=== PATIENT | female | born 1940 | race Caucasian/White ===

== ENCOUNTER 2016-11-17 09:02 | Outpatient (CLI) | payer MEDICARE, OTHER ==
--- NOTE | 2016-11-18 13:08 | Mammography Report ---
DIGITAL SCREENING MAMMOGRAM: 11/17/2016 CLINICAL INDICATION: A 76-year-old with family history of breast cancer for screening. COMPARISON: 03/2015, 07/2013, 07/2011, 05/2010, 05/2009, 02/2008, 02/2007. TECHNIQUE: Routine CC and MLO projections were obtained of the breasts as well as bilateral laterall y exaggerated craniocaudal views. FINDINGS: Scattered fibroglandular tissue is present within the breasts. There are no dominant deep s, suspicious microcalcifications, or secondary signs of malignancy. In comparison to the previous st udies, there are no significant changes. ASSESSMENT: NO MAMMOGRAPHIC EVIDENCE OF MALIGNANCY. NO SIGNIFICANT INTERVAL CHANGES. RECOMMENDATION: Screening mammography is recommended annually. BIRADS category 1 - negative. STANDARD QUALIFYING STATEMENTS 1. This examination was reviewed with the aid of Computed-Aided Detection (CAD). 2. A negative or benign imaging report should not delay biopsy if clinically suspicious findings are present. Consider surgical consultation if warranted. More than 5% of cancers are not identified by i maging. 3. Dense breasts may obscure an underlying neoplasm. JOB #: [id number] EXT JOB #:[id number]
== END 2016-11-17 09:03 | disposition home or self-care (01) ==
LOC: DI 09:02
PROVIDERS: ATTEND Physician Assistant
DX: Z12.31 Encounter for screening mammogram for malignant neoplasm of breast (principal); Z80.3 Family history of malignant neoplasm of breast
CPT/HCPCS: 77067

== ENCOUNTER 2017-08-26 09:00 | Outpatient (CLI) | payer MEDICARE, OTHER ==
[2017-08-26 10:09] LABS: BASOPHILS # (AUTO) 0.1 10^3/uL (0.0-0.1); BASOPHILS % (AUTO) 0.8 %; EOSINOPHILS # (AUTO) 0.2 10^3/uL (0.0-0.7); EOSINOPHILS % (AUTO) 2.4 %; LYMPHOCYTES # (AUTO) 0.6 10^3/uL (1.5-3.5); LYMPHOCYTES % (AUTO) 8.3 %; MEAN CORPUSCULAR HGB CONC 31.8 g/dL (32.0-36.0); MEAN CORPUSCULAR VOLUME 81.5 fL (81.0-99.0); MEAN PLATELET VOLUME 8.6 fL (7.9-10.8); MONOCYTES % (AUTO) 12.8 %; NEUTROPHILS # (AUTO) 5.7 10^3/uL (1.5-6.6); NEUTROPHILS % (AUTO) 75.7 %; PLT - PLATELET COUNT 228 10^3/uL (130-450); RED BLOOD COUNT 2.03 10^6/uL (4.20-5.40); RED CELL DISTRIBUTION WIDTH 15.7 % (12.0-15.0); WHITE BLOOD COUNT 7.5 x10^3/uL (4.8-10.8)
[2017-08-26 10:16] LABS: HGB - HEMOGLOBIN 5.3 g/dL (12.0-16.0)
[2017-08-26 10:44] LABS: ALBUMIN 3.4 g/dL (3.2-5.5); ALKALINE PHOSPHATASE 111 IU/L (42-121); ALT ALANINE AMINOTRANSFERASE 30 IU/L (10-60); AST ASPARTATE AMINOTRANSFERASE 41 IU/L (10-42); BILIRUBIN,TOTAL 0.4 mg/dL (0.2-1.0); BUN - BLOOD UREA NITROGEN 22 mg/dL (6-20); CALCIUM 8.1 mg/dL (8.5-10.3); CARBON DIOXIDE - CO2 24 mmol/L (21-32); CHLORIDE 93 mmol/L (101-111); CREATININE 0.5 mg/dL (0.4-1.0); GFR - MDRD 120 (>89); GLUCOSE 105 mg/dL (70-100); SODIUM 125 mmol/L (135-145); TOTAL PROTEIN 6.9 g/dL (6.7-8.2)
[2017-08-26 10:53] LABS: CRP - C-REACTIVE PROTEIN < 1.0 mg/dL (0-1.0)
== END 2017-08-26 09:01 | disposition home or self-care (01) ==
LOC: LAB.F 09:00
PROVIDERS: ATTEND Physician Assistant
DX: M62.81 Muscle weakness (generalized) (principal); K74.3 Primary biliary cirrhosis; R74.8 Abnormal levels of other serum enzymes
CPT/HCPCS: 36415; 80053; 82728; 85025; 85651; 86140

== ENCOUNTER 2017-08-26 11:34 | Emergency (ER) | payer MEDICARE, OTHER ==
--- NOTE | 2017-08-26 12:38 | ED Physician Documentation ---
History of Present Illness - Stated complaint Stated Complaint: LAB RESULT - Chief complaint Chief Complaint: Neuro - History obtained from History obtained from: Patient - History of Present Illness Timing: Other (77-year-old woman with diagnosis of primary biliary cirrhosis, crest syndrome. These are conservatively managed by nutrition. Over the last 3 weeks she has had episodes of presyncope and weakness especially in the thighs without complaints of abdominal pain, vomiting, or changes in bowel movements including dark or tarry stools or bloody stools. She was seen by her physician today who did labs and noted a hemoglobin of 5.5 so was referred to the emergency department for further evaluation and treatment. She has no known varices, no known history of ulcers. She is not on any blood thinners except for low-dose aspirin.) Review of Systems Ten Systems: 10 systems reviewed and negative Constitutional: reports: Fatigue. denies: Fever, Chills Cardiac: denies: Chest pain / pressure, Palpitations Respiratory: denies: Dyspnea, Cough GI: denies: Abdominal Pain, Nausea, Vomiting, Bloody / black stool PD PAST MEDICAL HISTORY - Past Medical History Past Medical History: Yes Cardiovascular: Hypertension Neuro: Other Psych: Depression Musculoskeletal: None - Past Surgical History General: Other Ortho: Other - Present Medications Home Medications: Ambulatory Orders Medication Instructions Recorded Confirmed Aspirin 81 mg PO DAILY 08/26/17 Chlorthalidone 25 mg PO DAILY 08/26/17 Enalapril Maleate 10 mg PO DAILY 08/26/17 - Allergies Allergies/Adverse Reactions: Allergies Allergy/AdvReac Type Severity Reaction Status Date / Time erythromycin base Allergy Unknown Verified 08/26/17 11:52 Sulfa (Sulfonamide Allergy Unknown Verified 08/26/17 11:53 Antibiotics) - Social History Does the pt smoke?: No Smoking Status: Never smoker - Family History Family history: reports: Non contributory PD ED PE NORMAL - Vitals Vital signs reviewed: Yes - General General: Alert and oriented X 3, No acute distress - HEENT HEENT: PERRL, EOMI - Neck Neck: Supple, no meningeal sign, No bony TTP - Cardiac Cardiac: RRR, Other (3/ decrescendo systolic mmr, LLSB, old per pt) - Respiratory Respiratory: No respiratory distress, Clear bilaterally - Abdomen Abdomen: Normal bowel sounds, Soft, Non tender - Rectal Rectal: Other (with Sophie Delgadillo, Brown but very guaiac positive stool with quality manager passed.) - Back Back: No CVA TTP, No spinal TTP - Derm Derm: Normal color, Warm and dry - Extremities Extremities: No edema, No calf tenderness / cord - Neuro Neuro: Alert and oriented X 3, Normal speech Results - Vitals Vitals: Vital Signs - 24 hr 08/26/17 08/26/17 11:45 13:09 Temperature 36.1 C L 36.3 C L Heart Rate 90 91 Respiratory 17 16 Rate Blood Pressure 143/68 H O2 Saturation 97 99 Oxygen O2 Source Room air - Labs Labs: Laboratory Tests 08/26/17 08/26/17 08/26/17 12:05 12:05 12:05 WBC 10.5 RBC 2.01 L Hgb 5.3 L* Hct 16.3 L* MCV 81.3 MCH 26.3 L MCHC 32.4 RDW 15.7 H Plt Count 254 MPV 8.8 Neut # 8.2 H Lymph # 0.9 L [place] # 1.2 H Eos # 0.1 Baso # 0.1 Absolute Nucleated RBC 0.01 Nucleated RBC % 0.1 PT INR Sodium 125 L Potassium 4.1 Chloride 92 L Carbon Dioxide 23 Anion Gap 10.0 BUN 21 H Creatinine 0.4 Estimated GFR (MDRD) 156 Glucose 107 H Calcium 8.3 L Total Bilirubin < 0.2 L AST 36 ALT 30 Alkaline Phosphatase 115 Total Protein 6.9 Albumin 3.1 L Globulin 3.8 Albumin/Globulin Ratio 0.8 L Lipase 85 H Blood Type O POSITIVE Blood Type Recheck Antibody Screen NEGATIVE Crossmatch IS Only See Detail 08/26/17 08/26/17 12:05 12:59 WBC RBC Hgb Hct MCV MCH MCHC RDW Plt Count MPV Neut # Lymph # [place] # Eos # Baso # Absolute Nucleated RBC Nucleated RBC % PT 11.9 INR 1.1 Sodium Potassium Chloride Carbon Dioxide Anion Gap BUN Creatinine Estimated GFR (MDRD) Glucose Calcium Total Bilirubin AST ALT Alkaline Phosphatase Total Protein Albumin Globulin Albumin/Globulin Ratio Lipase Blood Type Blood Type Recheck O POSITIVE Antibody Screen Crossmatch IS Only PD MEDICAL DECISION MAKING - ED course ED course: 77yo with PBC thusly with concern for poss varices with v guaiac positive stools and Hgb 5.5. Discussed with pt possibility for EGD/Cscope here with surgeon, but does not do variceal banding. Pt wanted to consider transfer to GI capable facility which is not unreasonable as no GI here. [facility] called, short on beds, unable to take in xfer. This was followed by [facility] and she was accepted by Dr. Keyes there are approximately 1:25 PM. That was confirmed. [place] completed. [place] a [place] in [place]. Departure - Departure Disposition: 02 Transfer Acute Care Hosp Clinical Impression: Primary biliary cirrhosis, Acute blood loss anemia Gastrointestinal hemorrhage Qualifiers: GI bleed type/associated pathology: unspecified gastrointestinal hemorrhage type Qualified Code(s): K92.2 - Gastrointestinal hemorrhage, unspecified Condition: Stable
[2017-08-26] MEDS ORDERED: PANTOPRAZOLE 40 MG VIAL IVP STA (12:39)
[2017-08-26 12:50] LABS: BASOPHILS # (AUTO) 0.1 10^3/uL (0.0-0.1); BASOPHILS % (AUTO) 0.6 %; EOSINOPHILS # (AUTO) 0.1 10^3/uL (0.0-0.7); LYMPHOCYTES # (AUTO) 0.9 10^3/uL (1.5-3.5); LYMPHOCYTES % (AUTO) 8.6 %; MEAN CORPUSCULAR HEMOGLOBIN 26.3 pg (27.0-31.0); MEAN CORPUSCULAR HGB CONC 32.4 g/dL (32.0-36.0); MEAN CORPUSCULAR VOLUME 81.3 fL (81.0-99.0); MEAN PLATELET VOLUME 8.8 fL (7.9-10.8); MONOCYTES # (AUTO) 1.2 10^3/uL (0.0-1.0); MONOCYTES % (AUTO) 11.7 %; NEUTROPHILS # (AUTO) 8.2 10^3/uL (1.5-6.6); NEUTROPHILS % (AUTO) 78.1 %; PLT - PLATELET COUNT 254 10^3/uL (130-450); RED BLOOD COUNT 2.01 10^6/uL (4.20-5.40); RED CELL DISTRIBUTION WIDTH 15.7 % (12.0-15.0); WHITE BLOOD COUNT 10.5 x10^3/uL (4.8-10.8)
[2017-08-26 12:54] LABS: ALBUMIN 3.1 g/dL (3.2-5.5); ALBUMIN/GLOBULIN RATIO 0.8 (1.0-2.2); ALKALINE PHOSPHATASE 115 IU/L (42-121); ALT ALANINE AMINOTRANSFERASE 30 IU/L (10-60); AST ASPARTATE AMINOTRANSFERASE 36 IU/L (10-42); BILIRUBIN,TOTAL < 0.2 mg/dL (0.2-1.0); BUN - BLOOD UREA NITROGEN 21 mg/dL (6-20); CALCIUM 8.3 mg/dL (8.5-10.3); CARBON DIOXIDE - CO2 23 mmol/L (21-32); CHLORIDE 92 mmol/L (101-111); CREATININE 0.4 mg/dL (0.4-1.0); GFR - MDRD 156 (>89); GLUCOSE 107 mg/dL (70-100); LIPASE 85 U/L (22-51); SODIUM 125 mmol/L (135-145); TOTAL PROTEIN 6.9 g/dL (6.7-8.2)
[2017-08-26 12:56] LABS: HGB - HEMOGLOBIN 5.3 g/dL (12.0-16.0)
[2017-08-26 13:11] LABS: INR 1.1 (0.8-1.2); PT - PROTHROMBIN TIME 11.9 secs (9.9-12.6)
[2017-08-26 17:17] VITALS: BP 148/79
== END 2017-08-26 17:39 | disposition short-term general hospital (02) ==
LOC: ED 11:34
DX: K74.3 Primary biliary cirrhosis (principal); K92.2 Gastrointestinal hemorrhage, unspecified; D62 Acute posthemorrhagic anemia; M34.1 CR(E)ST syndrome; I10 Essential (primary) hypertension; M62.81 Muscle weakness (generalized); R74.8 Abnormal levels of other serum enzymes; Z79.82 Long term (current) use of aspirin
CPT/HCPCS: 36415; 36430; 80053; 82728; 83690; 85025; 85610; 85651; 86140; 86850; 86900; 86901; 86920; 96374; 99283; 99284; P9016

== ENCOUNTER 2017-08-26 17:35 | Outpatient (CLI) | payer MEDICARE, OTHER | END 2017-08-26 17:36 | disposition short-term general hospital (02) | LOC: EMS 17:35 | PROVIDERS: ATTEND Surgery | DX: K92.2 Gastrointestinal hemorrhage, unspecified (principal) | CPT/HCPCS: A0425; A0426 ==

== ENCOUNTER 2018-02-15 13:40 | Outpatient (CLI) | payer MEDICARE, OTHER ==
[2018-02-15 18:15] LABS: BASOPHILS % (AUTO) 0.5 %; EOSINOPHILS # (AUTO) 0.1 10^3/uL (0.0-0.7); EOSINOPHILS % (AUTO) 2.4 %; LYMPHOCYTES % (AUTO) 17.5 %; MEAN CORPUSCULAR HEMOGLOBIN 23.5 pg (27.0-31.0); MEAN CORPUSCULAR HGB CONC 31.3 g/dL (32.0-36.0); MEAN CORPUSCULAR VOLUME 75.1 fL (81.0-99.0); MEAN PLATELET VOLUME 9.8 fL (7.9-10.8); MONOCYTES # (AUTO) 0.8 10^3/uL (0.0-1.0); MONOCYTES % (AUTO) 14.5 %; NEUTROPHILS # (AUTO) 3.6 10^3/uL (1.5-6.6); NEUTROPHILS % (AUTO) 65.1 %; PLT - PLATELET COUNT 186 10^3/uL (130-450); RED BLOOD COUNT 2.43 10^6/uL (4.20-5.40); RED CELL DISTRIBUTION WIDTH 16.3 % (12.0-15.0); WHITE BLOOD COUNT 5.5 x10^3/uL (4.8-10.8)
[2018-02-15 18:17] LABS: HGB - HEMOGLOBIN 5.7 g/dL (12.0-16.0)
== END 2018-02-15 13:41 | disposition home or self-care (01) ==
LOC: LAB.F 13:40
PROVIDERS: ATTEND Physician Assistant
DX: D64.9 Anemia, unspecified (principal)
CPT/HCPCS: 36415; 82728; 85025

== ENCOUNTER 2018-02-15 19:12 | Inpatient (IN) | payer MEDICARE, OTHER ==
--- NOTE | 2018-02-15 19:33 | ED Physician Documentation ---
History of Present Illness - Stated complaint Stated Complaint: ANEMIA/SENT BY [facility] TAB[facility]ES - Chief complaint Chief Complaint: Neuro - History obtained from History obtained from: Patient, Family - History of Present Illness Timing: How many weeks ago (gradually more weak over the past 2 weeks.) Pain level max: 0 Pain level now: 0 Improved by: rest Worsened by: walking - Additonal information Additional information: Patient is a 77-year-old female who presents to the emergency department with gradual increasing weakness over the past 2 weeks. Her primary care provider performed a CBC on her and it came back at 5.7 today. She was sent into the hospital for further evaluation and blood transfusion. Has been worked up for similar a few months ago, received blood transfusions here and was transferred to [facility] for endoscopy. The endoscopy revealed what appeared to be a gastritis, but no varices. She was given PPIs in the hospital but not sent home on any. She also receives iron infusions regularly. Has an appointment for an iron transfusion in 2 days. She states that her stools have been dark, but not black or tarry. No fevers. No coughing. No vomiting. No abdominal pain. Review of Systems Ten Systems: 10 systems reviewed and negative Constitutional: denies: Fever, Chills Ears: denies: Ear pain Nose: denies: Rhinorrhea / runny nose, Congestion Throat: denies: Sore throat Cardiac: denies: Chest pain / pressure Respiratory: reports: Dyspnea (with walking). denies: Cough GI: denies: Nausea, Vomiting, Diarrhea : denies: Dysuria Skin: denies: Rash Musculoskeletal: denies: Neck pain, Back pain Neurologic: reports: Generalized weakness. denies: Headache PD PAST MEDICAL HISTORY - Past Medical History Cardiovascular: Hypertension Psych: Depression Musculoskeletal: None - Past Surgical History General: Other Ortho: Other - Present Medications Home Medications: Ambulatory Orders Medication Instructions Recorded Confirmed Aspirin 81 mg PO DAILY 08/26/17 09/06/17 Chlorthalidone 25 mg PO DAILY 08/26/17 09/06/17 Enalapril Maleate 10 mg PO DAILY 08/26/17 09/06/17 Cholecalciferol (Vitamin D3) 1,000 unit PO DAILY 09/06/17 09/06/17 [Vitamin D3] Lactobacillus Acidophilus PO DAILY 09/06/17 [Probiotic Acidophilus] Mecobalamin [B-12] 5,000 mcg SL DAILY 09/06/17 09/06/17 Milk Thistle 150 mg PO DAILY 09/06/17 09/06/17 [place]-3/Dha/Epa/Fish Oil [Fish Oil 1 each PO DAILY 09/06/17 09/06/17 1,000 mg Softgel] - Allergies Allergies/Adverse Reactions: Allergies Allergy/AdvReac Type Severity Reaction Status Date / Time erythromycin base Allergy Unknown Verified 02/15/18 19:25 Sulfa (Sulfonamide Allergy Unknown Verified 02/15/18 19:25 Antibiotics) - Social History Does the pt smoke?: No Smoking Status: Never smoker PD ED PE NORMAL - Vitals Vital signs reviewed: Yes - General General: Alert and oriented X 3, No acute distress, Other (pale) - HEENT HEENT: PERRL, Moist mucous membranes - Neck Neck: Supple, no meningeal sign - Cardiac Cardiac: RRR, Strong equal pulses, Other (4 out of 6 holosystolic murmur) - Respiratory Respiratory: No respiratory distress, Clear bilaterally - Abdomen Abdomen: Soft, Non tender, Non distended - Rectal Rectal: Other (Hemoccult positive. process control technician passed otherwise normal rectal exam. RN Janice present.) - Back Back: No spinal TTP - Derm Derm: Warm and dry, No rash - Extremities Extremities: No calf tenderness / cord - Neuro Neuro: Alert and oriented X 3 - Psych Psych: Normal mood, Normal affect Results - Vitals Vitals: Vital Signs - 24 hr 02/15/18 02/15/18 19:15 19:52 Temperature 36.3 C L Heart Rate 102 H 95 Respiratory 18 18 Rate Blood Pressure 156/70 H 156/70 H O2 Saturation 100 99 Oxygen O2 Source Room air - Labs Labs: Laboratory Tests 02/15/18 02/15/18 02/15/18 19:25 19:25 19:25 WBC 5.3 RBC 2.37 L Hgb 5.6 L* Hct 17.6 L* MCV 74.4 L MCH 23.4 L MCHC 31.5 L RDW 16.0 H Plt Count 195 MPV 8.4 Neut # (Auto) 3.8 Lymph # (Auto) 0.7 L [place] # (Auto) 0.6 Eos # (Auto) 0.1 Baso # (Auto) 0.1 Absolute Nucleated RBC 0.01 Nucleated RBC % 0.1 PT 11.9 INR 1.1 APTT 28.6 Sodium Potassium Chloride Carbon Dioxide Anion Gap BUN Creatinine Estimated GFR (MDRD) Glucose Calcium Total Bilirubin AST ALT Alkaline Phosphatase Total Protein Albumin Globulin Albumin/Globulin Ratio Lipase Blood Type O POSITIVE Antibody Screen NEGATIVE Crossmatch IS Only 02/15/18 02/15/18 19:25 19:26 WBC RBC Hgb Hct MCV MCH MCHC RDW Plt Count MPV Neut # (Auto) Lymph # (Auto) [place] # (Auto) Eos # (Auto) Baso # (Auto) Absolute Nucleated RBC Nucleated RBC % PT INR APTT Sodium 128 L Potassium 4.5 Chloride 95 L Carbon Dioxide 26 Anion Gap 7.0 BUN 17 Creatinine 0.5 Estimated GFR (MDRD) 120 Glucose 109 H Calcium 8.4 L Total Bilirubin 0.4 AST 53 H ALT 42 Alkaline Phosphatase 221 H Total Protein 7.1 Albumin 3.3 Globulin 3.8 Albumin/Globulin Ratio 0.9 L Lipase 68 H Blood Type Cancelled Antibody Screen Cancelled Crossmatch IS Only See Detail PD MEDICAL DECISION MAKING - ED course Complexity details: reviewed old records (Prior discharge summary as well as the discharge summary from [facility]), reviewed results, re-evaluated patient, considered differential, d/w patient, d/w design studio consultant ED course: Patient is a 77-year-old female with symptomatic anemia, likely from an upper GI bleed. Given Protonix here. Will likely need a PPI for home. Fecal occult blood test is positive. Discussed the case with Dr. Campa, hospitalist who accepts. She will need a blood transfusion as her hemoglobin is down to 5.6. She is symptomatic from this. Also discussed the case with Dr. Salvatore White, surgery who will consult on the patient. Patient will be admitted. This document was made in part using voice recognition software. While efforts are made to proofread this document, sound alike and grammatical errors may occur. - Sepsis Event Vital Signs: Vital Signs - 24 hr 02/15/18 02/15/18 19:15 19:52 Temperature 36.3 C L Heart Rate 102 H 95 Respiratory 18 18 Rate Blood Pressure 156/70 H 156/70 H O2 Saturation 100 99 Oxygen O2 Source Room air Departure - Departure Disposition: 66 [facility] DC/Xfer Clinical Impression: Symptomatic anemia, Upper GI bleed, Fascioscapulohumeral muscular dystrophy, Primary biliary cirrhosis Condition: Stable Discharge Date/Time: 02/15/18 21:15
[2018-02-15 19:44] LABS: BASOPHILS # (AUTO) 0.1 10^3/uL (0.0-0.1); EOSINOPHILS # (AUTO) 0.1 10^3/uL (0.0-0.7); EOSINOPHILS % (AUTO) 2.3 %; LYMPHOCYTES # (AUTO) 0.7 10^3/uL (1.5-3.5); LYMPHOCYTES % (AUTO) 13.6 %; MEAN CORPUSCULAR HEMOGLOBIN 23.4 pg (27.0-31.0); MEAN CORPUSCULAR HGB CONC 31.5 g/dL (32.0-36.0); MEAN CORPUSCULAR VOLUME 74.4 fL (81.0-99.0); MEAN PLATELET VOLUME 8.4 fL (7.9-10.8); MONOCYTES # (AUTO) 0.6 10^3/uL (0.0-1.0); NEUTROPHILS # (AUTO) 3.8 10^3/uL (1.5-6.6); NEUTROPHILS % (AUTO) 71.1 %; PLT - PLATELET COUNT 195 10^3/uL (130-450); RED BLOOD COUNT 2.37 10^6/uL (4.20-5.40); WHITE BLOOD COUNT 5.3 x10^3/uL (4.8-10.8)
[2018-02-15 19:46] LABS: HGB - HEMOGLOBIN 5.6 g/dL (12.0-16.0)
[2018-02-15 19:52] LABS: INR 1.1 (0.8-1.2); PT - PROTHROMBIN TIME 11.9 secs (9.9-12.6)
[2018-02-15 19:55] LABS: ALBUMIN 3.3 g/dL (3.2-5.5); ALBUMIN/GLOBULIN RATIO 0.9 (1.0-2.2); BILIRUBIN,TOTAL 0.4 mg/dL (0.2-1.0); CALCIUM 8.4 mg/dL (8.5-10.3); CREATININE 0.5 mg/dL (0.4-1.0); TOTAL PROTEIN 7.1 g/dL (6.7-8.2)
[2018-02-15] MEDS ORDERED: PANTOPRAZOLE 40 MG VIAL IVP STA (19:56)
[2018-02-15] MEDS ORDERED: PROCHLORPERAZINE 10 MG/2 ML VIAL IVP PRN (20:38)
[2018-02-15] MEDS ORDERED: PROMETHAZINE 25 MG/1 ML VIAL IM PRN (20:38)
[2018-02-15] MEDS ORDERED: ONDANSETRON 4 MG/2 ML VIAL IVP PRN (20:38)
[2018-02-15] MEDS ORDERED: ACETAMINOPHEN 325 MG TABLET PO PRN (20:38)
[2018-02-15] MEDS ORDERED: ZOLPIDEM 5 MG TABLET PO PRN (20:38)
[2018-02-15] MEDS ORDERED: oxyCODONE 5 MG TABLET PO PRN (20:38)
[2018-02-15] MEDS ORDERED: SODIUM CHLORIDE 0.9% 500 ML IV ONE (20:56)
[2018-02-15] MEDS: PANTOPRAZOLE 40 MG VIAL IVP SCH (22:17)
--- NOTE | 2018-02-15 22:31 | HISTORY & PHYSICAL EXAMINATION ---
Chief Complaint - Chief Complaint Chief Complaint: Generalized weakness History of Present Illness - Admitted From Admitted From:: Emergency Department - History Obtained From Records Reviewed: Yes History obtained from: Patient and medical records Exam Limitations: None - History of Present Illness HPI Comment/Other: Patient is a 77-year-old female with a past medical history significant for fascioscapulohumeral muscular dystrophy, primary biliary cirrhosis, hypertension , Raynaud's syndrome, paroxysmal atrial fibrillation and iron deficiency anemia who presents to the emergency department with a chief complaint of generalized weakness. The patient was hospitalized at [facility] in [place], [place] on August 26, 2017 with anemia. At that time she presented to the emergency department here at [facility] with fatigue and presyncope. She was found to have a hemoglobin of 5.3 and was transferred to [facility] as there was concern for possible variceal bleeding given her history of primary biliary cirrhosis. She was hospitalized at [facility] for 4 days and underwent EGD, colonoscopy and CT enterography. The patient's upper endoscopy showed normal esophagus and erythematous gastric mucosa with moderately congested mucosal folds in the gastric antrum and a normal appearing duodenum. The patient's colonoscopy was notable for diverticulosis and 2 colonic angioectasis that were treated with laser coagulation. The patient was told to avoid all NSAIDs. Her vital signs remained stable and her hemoglobin also remained stable over her course of her hospitalization at [facility]. She was transfused 2 units of packed RBCs and required no further transfusions. The patient was found to have microcytic anemia with iron deficiency. She received IV iron infusion at [facility]. During her hospitalization the patient was also found to have paroxysmal atrial fibrillation with a chadsVasc score of 4 but given her GI bleed she was not placed on any anticoagulation. After discharge the patient underwent further iron transfusions. She states that she received 3 -4 transfusions one week apart with her last transfusion being in October 2017. The patient's reticulocyte index during her hospitalization was consistent with hypoproliferative state and referral to hematology for consideration of bone marrow biopsy was recommended if the patient does not respond to iron therapy. The patient states that after her last iron infusion in October she has been feeling well. She states that she does have chronic symptoms of fatigue and sleepiness secondary to her muscular dystrophy. She states however over the last 2-3 weeks she has had increasing fatigue with increasing generalized weakness and been feeling faint. She states that the symptoms have become progressively worse over the last 2-3 weeks and significantly worse over the last 2 days where she is felt as though she was going to pass out on multiple occasions. The patient states that 3 weeks ago she did notify her primary care physician that she did not feel right but at that time it was suggested that we wait for 2 more weeks to get her CBC checked because then it would be a full 3 months since her last iron transfusion. The patient's hemoglobin was checked earlier this afternoon at her primary care physician's office and found to be 5.7. The patient was then sent to the emergency department. The patient does admit to some increasing shortness of breath with exertion but denies any chest pain. The patient also states that she has had decreased appetite. Patient denies any headaches, blurred vision, runny nose, sore throat, nasal congestion, difficulty swallowing, fevers, chills, cough, orthopnea, PND, increased lower extremity swelling, abdominal pain, nausea, vomiting, diarrhea, constipation, urinary frequency, urinary urgency, dysuria, joint swelling, joint pain, back pain, neck stiffness, hair loss, skin changes, polyuria, polydipsia, recent unintentional weight loss or any focal neurologic deficits. On presentation to the emergency department the patient was afebrile, tachycardic with heart rate of 102 mildly hypertensive and not in any respiratory distress. The patient appeared to be very pale and basic labs were checked which revealed a hemoglobin of 5.6 with a hematocrit of 17.6 and a low MCV. The patient had a normal INR and a mildly decreased sodium of 128 with a slightly elevated AST of 53 and alk phos of 221. The emergency room physician checked a stool guaiac which was positive. The patient was admitted to the medical [facility] for symptomatic anemia and likely GI bleed. The patient was given IV Protonix in the emergency department. History - Past Medical History Cardiovascular: reports: Hypertension, Atrial fibrillation (Paroxysmal) Neuro: reports: Other (fascioscapulohumeral muscular dystrophy) GI: reports: GI bleed, Other (PBC) Psych: reports: Depression Musculoskeletal: reports: None MRSA Hx?: No Other Past Medical History: muscular dystrophy, Iron deficiency anemia - Past Surgical History General: reports: Colonoscopy, EGD, Other Ortho: reports: Other - Family & Social History Family History: Mother: CAD, Parkinson's Disease, Father: Alcoholism, Brother: Alcoholism Living arrangement: At home Living Situation: Alone Social History Notes: The patient lives in [place], [place] alone in her home. She is lived there since 2000. 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 She states that she got a master's in theology in [place]. She is originally from [place]. She is and has 2 adult children and 4 adult grandchildren. She was previously a smoker she smoked for 11 years and smoked 1 pack per day but quit 45 years ago. She denies any illicit drug use and does admit to being a social drinker her last drink was 4 weeks ago. - POLST Patient has POLST: No POLST Status: DNR Meds/Allgy - Home Medications Home Medications: Ambulatory Orders Medication Instructions Recorded Confirmed Aspirin 81 mg PO DAILY 08/26/17 09/06/17 Chlorthalidone 25 mg PO DAILY 08/26/17 09/06/17 Enalapril Maleate 10 mg PO DAILY 08/26/17 09/06/17 Cholecalciferol (Vitamin D3) 1,000 unit PO DAILY 09/06/17 09/06/17 [Vitamin D3] Lactobacillus Acidophilus PO DAILY 09/06/17 [Probiotic Acidophilus] Mecobalamin [B-12] 5,000 mcg SL DAILY 09/06/17 09/06/17 Milk Thistle 150 mg PO DAILY 09/06/17 09/06/17 [place]-3/Dha/Epa/Fish Oil [Fish Oil 1 each PO DAILY 09/06/17 09/06/17 1,000 mg Softgel] - Allergies Allergies/Adverse Reactions: Allergies Allergy/AdvReac Type Severity Reaction Status Date / Time erythromycin base Allergy Unknown Verified 02/15/18 19:25 Sulfa (Sulfonamide Allergy Unknown Verified 02/15/18 19:25 Antibiotics) Review of Systems - Other Findings Other Findings: A comprehensive review of systems was performed the pertinent positives and negatives are stated above in the HPI and the remainder of the review of systems is negative. Exam - Vital Signs Reviewed Vital Signs: Yes Vital Signs: Vital Signs x48h Temp Pulse Pulse Resp BP BP Pulse Ox 02/15/18 21:53 37 C 87 18 116/77 02/15/18 21:32 37.1 C 92 18 145/64 H 02/15/18 21:14 37.1 C 92 20 145/64 H 100 02/15/18 20:58 75 18 133/66 H 99 - Physical Exam General Appearance: positive: No acute distress, Alert, Other (Pale appearing) Eyes Bilateral: positive: Normal inspection, PERRL, EOMI, No lid inflammation, No scleral icterus, Other (Conjunctival pallor) ENT: positive: ENT inspection nml, Pharynx nml, Dry mucous membranes. negative : Purulent nasal drainage, Pharyngeal erythema, Oral lesions Neck: positive: Nml inspection, Thyroid nml, No JVD, Trachea midline. negative : Thyromegaly, Lymphadenopathy (R), Lymphadenopathy (L), Stiff neck, Carotid bruit, Tracheal deviation Respiratory: positive: Chest non-tender, No respiratory distress, Breath sounds nml. negative: Wheezes, Rales, Rhonchi Cardiovascular: positive: Regular rate & rhythm, No gallop, Systolic murmur Peripheral Pulses: positive: 2+ Abdomen: positive: Non-tender, No organomegaly, Nml bowel sounds, No distention. negative: Guarding, Rebound, Hepatomegaly Back: positive: Nml inspection. negative: CVA tenderness (R), CVA tenderness (L ) Skin: positive: Color nml, No rash, Warm, Dry, Pallor. negative: Cyanosis, Diaphoresis, Skin rash Extremities: positive: Non-tender, Full ROM, Nml appearance, No pedal edema Neurologic/Psychiatric: positive: Oriented x3, CN's nml (2-12), Motor nml, Sensation nml, Mood/affect nml Conclusion/Plan - Problem List (1) Gastrointestinal hemorrhage Conclusion/Plan: The patient presented to the emergency department with symptomatic anemia with symptoms of increasing fatigue, feeling faint and shortness of breath with exertion. The patient's hemoglobin was found to be 5.6 in the emergency department. Her stool guaiac was positive. The patient has had workup for GI bleeding in the past with EGD and colonoscopy in August 2017 at [facility]. At that time she was found to have some erythematous gastric mucosa moderately congested mucosal folds in the gastric antrum with a normal duodenum and esophagus. She also underwent colonoscopy at that time and was found to have diverticulosis with 2 colonic angioectasia that were treated with laser coagulation. The patient denies any bloody stools or melena at home. Plan: 2 large-bore IVs Transfuse 2 units packed RBCs Monitor H&H every 6 hours IV Protonix twice daily Surgery consult for possible EGD and colonoscopy Avoid NSAIDs, aspirin and anticoagulation. Qualifiers: GI bleed type/associated pathology: unspecified gastrointestinal hemorrhage type Qualified Code(s): K92.2 - Gastrointestinal hemorrhage, unspecified (2) Symptomatic anemia Conclusion/Plan: The patient has been having symptoms of increasing generalized weakness, fatigue , feeling faint and increasing shortness of breath with exertion. The patient was pale on presentation to the emergency department and found to have a hemoglobin of 5.6. Given her symptomatic anemia the patient is being transfused 2 units of packed RBCs. The patient also had positive stool guaiac therefore there is concern for possible GI bleed. The patient is being admitted to the hospital for blood transfusion and monitoring and further assessment for GI bleeding. (3) Iron deficiency anemia Conclusion/Plan: The patient has a history of iron deficiency anemia and has received iron infusions in the past. Her last infusion was in October 2017. She states that she received 3-4 infusions one week apart after her hospitalization at [facility]. We do not have any record of her previous iron level but her ferritin level from today was low at 8.4 which is consistent with persistent iron deficiency anemia. While the patient is hospitalized she will receive a blood transfusion and we will do further workup for possible GI bleed and then consider starting her on iron supplementation and have her follow-up outpatient for further iron transfusions and possible referral to hematology for bone marrow biopsy. Qualifiers: Iron deficiency anemia type: chronic blood loss Qualified Code(s): D50.0 - Iron deficiency anemia secondary to blood loss (chronic) (4) Hypertension Conclusion/Plan: Patient's blood pressure was elevated on presentation but did improve when patient was brought to the medical [facility]. Given the patient's possible ongoing GI bleed we will avoid her antihypertensive medications for now in the case that she develops hypotension. If the patient's blood pressure does become uncontrolled we can then restart her home antihypertensive medication. We will continue to monitor her blood pressure while she is hospitalized. (5) Hyponatremia Conclusion/Plan: Patient does have hyponatremia on presentation with a sodium of 128. Patient appears to be hypokalemic with hypovolemic hyponatremia likely secondary to dehydration as the patient has had poor appetite. The patient will be given IV fluid and blood transfusion and will continue to monitor the patient's sodium while she is hospitalized. (6) Fascioscapulohumeral muscular dystrophy Conclusion/Plan: Patient has chronic daily symptoms of fatigue and sleepiness. She is not on any current treatment. She states that she has had very mild progression of disease over the years and has made small adjustments in her life to adapt to her muscle weakness. She does use a cane when going up and down the stairs but otherwise does not require any assistance device or wheelchair and is quite active. (7) Atrial fibrillation Conclusion/Plan: Patient has a history of paroxysmal atrial fibrillation. 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 The patient is not on any anticoagulation due to her history of GI bleeding. For now we will monitor the patient on telemetry and will hold off on giving her any anticoagulation. The patient has a chads 2 score of 2. Qualifiers: Atrial fibrillation type: paroxysmal Qualified Code(s): I48.0 - Paroxysmal atrial fibrillation (8) Primary biliary cirrhosis Conclusion/Plan: Patient has a history of primary biliary cirrhosis. She is asymptomatic aside from slightly elevated LFTs. The patient's LFTs do appear to be slightly elevated on presentation today with AST of 53 and an alk phos of 221. The patient has not had any extensive workup but does have a CT scan from [facility] that is showing evidence of cirrhosis and has been told she has an elevated DWAINE in the past. There is no record of the patient having had a test for antimitochondrial antibody which is specific for PBC. At this point the patient appears to be stable and there is no need for any acute intervention. - Lab Results Lab results reviewed: Yes Fish Bones: 02/15/18 19:25 02/15/18 19:25 Other Lab Results: Laboratory Results WBC 5.3 x10^3/uL (4.8-10.8) 02/15/18 19: RBC 2.37 10^6/uL (4.20-5.40) L 02/15/18 19:25 Hgb 5.6 g/dL (12.0-16.0) L* 02/15/18 19: Hct 17.6 % (37.0-47.0) L* 02/15/18 19: MCV 74.4 fL (81.0-99.0) L 02/15/18 19: MCH 23.4 pg (27.0-31.0) L 02/15/18 19: MCHC 31.5 g/dL (32.0-36.0) L 02/15/18:25 RDW 16.0 % (12.0-15.0) H 02/15/18:25 Plt Count 195 10^3/uL (130-450) 02/15/18: MPV 8.4 fL (7.9-10.8) 02/15/18:25 Neut # (Auto) 3.8 10^3/uL (1.5-6.6) 02/15/18: Lymph # (Auto) 0.7 10^3/uL (1.5-3.5) L 02/15/18: [place] # (Auto) 0.6 10^3/uL (0.0-1.0) 02/15/18: Eos # (Auto) 0.1 10^3/uL (0.0-0.7) 02/15/18: Baso # (Auto) 0.1 10^3/uL (0.0-0.1) 02/15/18: Absolute Nucleated RBC 0.01 x10^3/uL 02/15/18: Nucleated RBC % 0.1 /100WBC 02/15/18: PT 11.9 secs (9.9-12.6) 02/15/18: INR 1.1 (0.8-1.2) 02/15/18: APTT 28.6 secs (24.9-33.3) 02/15/18 19:25 Sodium 128 mmol/L (135-145) L 02/15/18 19:25 Potassium 4.5 mmol/L (3.5-5.0) 02/15/18:25 Chloride 95 mmol/L (101-111) L 02/15/18:25 Carbon Dioxide 26 mmol/L (21-32) 02/15/18:25 Anion Gap 7.0 (6-13) 02/15/18:25 BUN 17 mg/dL (6-20) 02/15/18 19:25 Creatinine 0.5 mg/dL (0.4-1.0) 02/15/18 19:25 Estimated GFR (MDRD) 120 (>89) 02/15/18 19:25 Glucose 109 mg/dL (70-100) H 02/15/18 19:25 Calcium 8.4 mg/dL (8.5-10.3) L 02/15/18 19:25 Total Bilirubin 0.4 mg/dL (0.2-1.0) 02/15/18 19:25 AST 53 IU/L (10-42) H 02/15/18 19:25 ALT 42 IU/L (10-60) 02/15/18 19:25 Alkaline Phosphatase 221 IU/L (42-121) H 02/15/18 19:25 Total Protein 7.1 g/dL (6.7-8.2) 02/15/18 19:25 Albumin 3.3 g/dL (3.2-5.5) 02/15/18 19:25 Globulin 3.8 g/dL (2.1-4.2) 02/15/18 19:25 Albumin/Globulin Ratio 0.9 (1.0-2.2) L 02/15/18 19:25 Lipase 68 U/L (22-51) H 02/15/18 19:25 Blood Type O POSITIVE 02/15/18 19:25 Antibody Screen NEGATIVE 02/15/18 19:25 Crossmatch IS Only See Detail 02/15/18 19:26 - Diagnostic Imaging Results Diagnostic Imaging Results: positive: Final report reviewed Diagnostic Imaging Results Comments: EGD 08/27/2017 Impression: Normal esophagus. Erythematous mucosal in the stomach, cardia and gastric fundus. Moderately congested mucosal fold was found in the gastric antrum. Normal duodenal exam. Colonoscopy 08/27/2017 Impression: Diverticulosis in the entire examined colon. One colonic angiectasia. Treated with laser coagulation. One colonic angiectasia. Treated with argon plasma coagulation. Transthoracic echocardiogram 08/27/2017 Impression: Grade 2 diastolic dysfunction. Normal left ventricular ejection fraction of 66% . Mild aortic stenosis. Moderately enlarged left atrium. No evidence of intra -atrial or intraventricular shunt. CT enterography Impression: 1. No small bowel mass or small bowel abnormality demonstrated as etiology of patient's anemia. 2. Small volume intra-abdominal free fluid and nodular liver contour compatible with known primary biliary cirrhosis. 3. Mildly enlarged simran hepatis and celiac axis lymph nodes likely related to patient's underlying liver disease. 4. Nonobstructive nephrolithiasis of left kidney. Core Measures - Anticipated LOS I expect patient to be DC'd or transferred within 96 hours.: Yes - DVT/VTE - Prophylaxis VTE/DVT Device ordered at admit?: Yes
[2018-02-16] MEDS: SODIUM CHLORIDE FLUSH 0.9% 10 ML SYRINGE IVP SCH ×3 (00:42→17:12)
[2018-02-16] MEDS: SODIUM CHLORIDE 0.9% 1,000 ML IV SCH ×2 (04:38→15:59)
[2018-02-16] MEDS: SODIUM CHLORIDE FLUSH 0.9% 10 ML SYRINGE IVP PRN ×2 (04:38→23:11)
[2018-02-16 07:08] LABS: BASOPHILS % (AUTO) 1.6 %; EOSINOPHILS # (AUTO) 0.1 10^3/uL (0.0-0.7); EOSINOPHILS % (AUTO) 3.5 %; HGB - HEMOGLOBIN 7.8 g/dL (12.0-16.0); LYMPHOCYTES # (AUTO) 0.7 10^3/uL (1.5-3.5); LYMPHOCYTES % (AUTO) 23.6 %; MEAN CORPUSCULAR HEMOGLOBIN 25.9 pg (27.0-31.0); MEAN CORPUSCULAR HGB CONC 32.7 g/dL (32.0-36.0); MEAN CORPUSCULAR VOLUME 79.2 fL (81.0-99.0); MEAN PLATELET VOLUME 8.2 fL (7.9-10.8); MONOCYTES # (AUTO) 0.6 10^3/uL (0.0-1.0); MONOCYTES % (AUTO) 18.7 %; NEUTROPHILS # (AUTO) 1.5 10^3/uL (1.5-6.6); NEUTROPHILS % (AUTO) 52.6 %; PLT - PLATELET COUNT 113 10^3/uL (130-450); RED CELL DISTRIBUTION WIDTH 17.6 % (12.0-15.0)
[2018-02-16 07:14] LABS: PT - PROTHROMBIN TIME 11.5 secs (9.9-12.6)
[2018-02-16 07:19] LABS: ALBUMIN 2.9 g/dL (3.2-5.5); ALBUMIN/GLOBULIN RATIO 0.9 (1.0-2.2); BILIRUBIN,TOTAL 0.7 mg/dL (0.2-1.0); CREATININE 0.4 mg/dL (0.4-1.0); TOTAL PROTEIN 6.2 g/dL (6.7-8.2)
[2018-02-16] MEDS: CHOLECALCIFEROL 1,000 UNIT TABLET PO SCH (08:54)
[2018-02-16] MEDS: ASPIRIN CHEW 81 MG TABLET PO SCH (08:54)
[2018-02-16] MEDS: PANTOPRAZOLE 40 MG VIAL IVP SCH ×2 (08:55→23:11)
[2018-02-16] MEDS: MECOBALAMIN 5000 MCG PO SCH (08:55)
[2018-02-16] MEDS: POLYETHYLENE GLYCOL 3350 17 GM PACKET PO SCH (08:56)
[2018-02-16 11:18] LABS: BASOPHILS % (AUTO) 0.8 %; EOSINOPHILS # (AUTO) 0.1 10^3/uL (0.0-0.7); EOSINOPHILS % (AUTO) 2.2 %; HGB - HEMOGLOBIN 8.4 g/dL (12.0-16.0); LYMPHOCYTES # (AUTO) 0.6 10^3/uL (1.5-3.5); LYMPHOCYTES % (AUTO) 17.4 %; MEAN CORPUSCULAR HEMOGLOBIN 25.7 pg (27.0-31.0); MEAN CORPUSCULAR VOLUME 80.1 fL (81.0-99.0); MEAN PLATELET VOLUME 8.8 fL (7.9-10.8); MONOCYTES # (AUTO) 0.5 10^3/uL (0.0-1.0); MONOCYTES % (AUTO) 14.7 %; NEUTROPHILS # (AUTO) 2.2 10^3/uL (1.5-6.6); NEUTROPHILS % (AUTO) 64.9 %; PLT - PLATELET COUNT 108 10^3/uL (130-450); RED BLOOD COUNT 3.26 10^6/uL (4.20-5.40); RED CELL DISTRIBUTION WIDTH 17.8 % (12.0-15.0); WHITE BLOOD COUNT 3.4 x10^3/uL (4.8-10.8)
--- NOTE | 2018-02-16 15:47 | Nuclear Medicine Report ---
Reason: gi bleed recurrent Procedure Date: 02/16/2018 Accession Number: [id number] / [id number] Procedure: NM - GI Bleed/Tagged RBC CPT Code: FULL RESULT: EXAM: GASTROINTESTINAL BLEED LOCALIZATION STUDY WITH VASCULAR FLOW STUDY EXAM DATE: 02/16/2018 03:00 PM. CLINICAL HISTORY: Gi bleed recurrent. COMPARISON: None. TECHNIQUE: The patient's own red blood cells were labeled with 27.3 mCi Tc-99m pertechnetate according to department protocol. Following the administration of the radiolabeled red blood cells, dynamic flow images were acquired for the initial 2 minutes. Next, dynamic gamma camera imaging for a total of 60 minutes post injection was acquired from the anterior projection. Postvoid images were also acquired. FINDINGS: No foci of progressive antegrade or retrograde radiotracer activity to suggest etiology of GI bleed. Physiological uptake in vasculature, spleen, liver, and bladder. IMPRESSION: No active GI bleeding is evident. RADIA
[2018-02-16 17:17] LABS: BASOPHILS % (AUTO) 1.1 %; EOSINOPHILS # (AUTO) 0.2 10^3/uL (0.0-0.7); EOSINOPHILS % (AUTO) 3.7 %; HGB - HEMOGLOBIN 8.6 g/dL (12.0-16.0); LYMPHOCYTES # (AUTO) 0.8 10^3/uL (1.5-3.5); LYMPHOCYTES % (AUTO) 18.7 %; MEAN CORPUSCULAR HGB CONC 32.7 g/dL (32.0-36.0); MEAN CORPUSCULAR VOLUME 79.4 fL (81.0-99.0); MEAN PLATELET VOLUME 8.8 fL (7.9-10.8); MONOCYTES # (AUTO) 0.6 10^3/uL (0.0-1.0); MONOCYTES % (AUTO) 13.7 %; NEUTROPHILS # (AUTO) 2.7 10^3/uL (1.5-6.6); NEUTROPHILS % (AUTO) 62.8 %; PLT - PLATELET COUNT 134 10^3/uL (130-450); RED BLOOD COUNT 3.31 10^6/uL (4.20-5.40); RED CELL DISTRIBUTION WIDTH 17.7 % (12.0-15.0); WHITE BLOOD COUNT 4.3 x10^3/uL (4.8-10.8)
--- NOTE | 2018-02-16 17:18 | PROVIDER PROGRESS NOTE ---
Subjective - Prog Note Date Prog Note Date: 02/16/18 Prog Note Time: 17:12 - Subjective Pt reports feeling: Improved Subjective: She is always tired. Has difficulty distinguishing we are between her muscular dystrophy and chronic blood loss anemia. So she really is not aware if she is having black tarry stools or not. She does feel less fatigued than last night after 2 units of blood. No chest pain no palpitations. Current Medications - Current Medications Current Medications: Active Medications Acetaminophen (Tylenol) 650 mg PO Q4HR PRN PRN Reason: Pain 1 to 4 Aspirin ([place] Aspirin) 81 mg PO DAILY [facility] Last Admin: 02/16/18 08:54 Dose: 81 mg Cholecalciferol (Vitamin D3) 1,000 unit PO DAILY [facility] Last Admin: 02/16/18 08:54 Dose: 1,000 unit Sodium Chloride (Normal Saline 0.9%) 1,000 mls @ 100 mls/hr IV .Q10H [facility] Last Admin: 02/16/18 15:59 Dose: 100 mls/hr Ondansetron HCl (Zofran Inj) 4 mg IVP Q6HR PRN PRN Reason: Nausea / Vomiting Oxycodone HCl (Roxicodone) 5 mg PO Q4HR PRN PRN Reason: Pain 5 to 7 Pantoprazole Sodium (Protonix) 40 mg IVP BID [facility] Last Admin: 02/16/18 08:55 Dose: 40 mg (Mecobalamin [B-12] (5,000 Mcg) Tab) 1 each PO DAILY [facility] Last Admin: 02/16/18 08:55 Dose: Not Given Polyethylene Glycol (Miralax) 17 gm PO DAILY [facility] Last Admin: 02/16/18 08:56 Dose: Not Given Prochlorperazine Edisylate (Compazine Inj) 10 mg IVP Q6HR PRN PRN Reason: Nausea / Vomiting Promethazine HCl (Phenergan Inj) 25 mg IM Q6HR PRN PRN Reason: Nausea / Vomiting Sodium Chloride (Normal Saline Flush 0.9%) 10 ml IVP PRN PRN PRN Reason: NEEDED PER PROVIDER ORDERS Last Admin: 02/16/18 04:38 Dose: 10 ml Sodium Chloride (Normal Saline Flush 0.9%) 10 ml IVP 0100,0900,1700 [facility] Last Admin: 02/16/18 17:12 Dose: Not Given Zolpidem Tartrate (Ambien) 5 mg PO QPM PRN PRN Reason: Insomnia Aspirin 81 mg PO DAILY 08/26/17 Enalapril Maleate 10 mg PO DAILY 08/26/17 Lactobacillus Acidophilus [Probiotic Acidophilus] 1 cap PO DAILY 09/06/17 Cholecalciferol (Vitamin D3) [Vitamin D3] 5,000 unit PO DAILY 02/16/18 LORazepam [Lorazepam] 1 mg PO TID PRN 02/16/18 Objective - Vital Signs/Intake & Output Reviewed Vital Signs: Yes Vital Signs: Vital Signs x48h Temp Pulse Resp BP Pulse Ox 02/16/18 16:11 36.9 C 78 16 144/74 H 100 02/16/18 11:41 36.9 C 73 18 147/72 H 97 Intake & Output: Intake & Output 02/13/18 02/14/18 02/15/18 02/16/18 23:59 23:59 23:59 23:59 Intake Total 2350 Balance 2350 - Objective General Appearance: positive: No acute distress, Alert, Other (Tall well- nourished well-developed elderly female who looks younger than stated age.) Eyes Bilateral: positive: PERRL ENT: positive: Pharynx nml Neck: positive: No JVD. negative: Stiff neck, Carotid bruit Respiratory: positive: Chest non-tender. negative: Wheezes, Rales, Rhonchi Cardiovascular: positive: Regular rate & rhythm, Systolic murmur. negative: Gallop/S4, Friction rub Abdomen: positive: Non-tender, No organomegaly, Nml bowel sounds, No distention Skin: positive: Warm, Dry, Pallor Extremities: positive: Non-tender, No pedal edema Neurologic/Psychiatric: positive: Oriented x3, CN's nml (2-12), Motor nml. negative: Weakness - Lab Results Fish Bones: 02/16/18 11:03 02/16/18 06:55 Other Labs: Lab Results x24hrs 02/16/18 02/16/18 02/16/18 Range/Units 11:03 06:55 06:55 WBC 3.4 L (4.8-10.8) x10^3/uL RBC 3.26 L (4.20-5.40) 10^6/uL Hgb 8.4 L (12.0-16.0) g/dL Hct 26.1 L (37.0-47.0) % MCV 80.1 L (81.0-99.0) fL MCH 25.7 L (27.0-31.0) pg MCHC 32.0 (32.0-36.0) g/dL RDW 17.8 H (12.0-15.0) % Plt Count 108 L (130-450) 10^3/uL MPV 8.8 (7.9-10.8) fL Neut # (Auto) 2.2 (1.5-6.6) 10^3/uL Lymph # (Auto) 0.6 L (1.5-3.5) 10^3/uL [place] # (Auto) 0.5 (0.0-1.0) 10^3/uL Eos # (Auto) 0.1 (0.0-0.7) 10^3/uL Baso # (Auto) 0.0 (0.0-0.1) 10^3/uL Absolute Nucleated RBC 0.01 x10^3/uL Nucleated RBC % 0.2 /100WBC PT 11.5 (9.9-12.6) secs INR 1.0 (0.8-1.2) Sodium 134 L (135-145) mmol/L Potassium 4.0 (3.5-5.0) mmol/L Chloride 103 (101-111) mmol/L Carbon Dioxide 27 (21-32) mmol/L Anion Gap 4.0 L (6-13) BUN 12 (6-20) mg/dL Creatinine 0.4 (0.4-1.0) mg/dL Estimated GFR (MDRD) 156 (>89) Glucose 92 (70-100) mg/dL Calcium 8.0 L (8.5-10.3) mg/dL Total Bilirubin 0.7 (0.2-1.0) mg/dL AST 42 (10-42) IU/L ALT 34 (10-60) IU/L Alkaline Phosphatase 177 H (42-121) IU/L Total Protein 6.2 L (6.7-8.2) g/dL Albumin 2.9 L (3.2-5.5) g/dL Globulin 3.3 (2.1-4.2) g/dL Albumin/Globulin Ratio 0.9 L (1.0-2.2) 02/16/18 Range/Units 06:55 WBC 3.0 L (4.8-10.8) x10^3/uL RBC 3.00 L (4.20-5.40) 10^6/uL Hgb 7.8 L (12.0-16.0) g/dL Hct 23.8 L (37.0-47.0) % MCV 79.2 L (81.0-99.0) fL MCH 25.9 L (27.0-31.0) pg MCHC 32.7 (32.0-36.0) g/dL RDW 17.6 H (12.0-15.0) % Plt Count 113 L (130-450) 10^3/uL MPV 8.2 (7.9-10.8) fL Neut # (Auto) 1.5 (1.5-6.6) 10^3/uL Lymph # (Auto) 0.7 L (1.5-3.5) 10^3/uL [place] # (Auto) 0.6 (0.0-1.0) 10^3/uL Eos # (Auto) 0.1 (0.0-0.7) 10^3/uL Baso # (Auto) 0.0 (0.0-0.1) 10^3/uL Absolute Nucleated RBC 0.01 x10^3/uL Nucleated RBC % 0.3 /100WBC PT (9.9-12.6) secs INR (0.8-1.2) Sodium (135-145) mmol/L Potassium (3.5-5.0) mmol/L Chloride (101-111) mmol/L Carbon Dioxide (21-32) mmol/L Anion Gap (6-13) BUN (6-20) mg/dL Creatinine (0.4-1.0) mg/dL Estimated GFR (MDRD) (>89) Glucose (70-100) mg/dL Calcium (8.5-10.3) mg/dL Total Bilirubin (0.2-1.0) mg/dL AST (10-42) IU/L ALT (10-60) IU/L Alkaline Phosphatase (42-121) IU/L Total Protein (6.7-8.2) g/dL Albumin (3.2-5.5) g/dL Globulin (2.1-4.2) g/dL Albumin/Globulin Ratio (1.0-2.2) ABX Reporting Has patient been on IV antibiotics over the past 48 hours?: No Assessment/Plan - Problem List (1) Gastrointestinal hemorrhage Impression: The patient presented to the emergency department with symptomatic anemia with symptoms of increasing fatigue, feeling faint and shortness of breath with exertion. The patient's hemoglobin was found to be 5.6 in the emergency department. Her stool guaiac was positive. The patient has had workup for GI bleeding in the past with EGD and colonoscopy in August 2017 at [facility]. At that time she was found to have some erythematous gastric mucosa moderately congested mucosal folds in the gastric antrum with a normal duodenum and esophagus. She also underwent colonoscopy at that time and was found to have diverticulosis with 2 colonic angioectasia that were treated with laser coagulation. Unfortunately the location of them were not identified in the operative report. The patient denies any bloody stools or melena at home.It is hard for her to know that of fatigue and shortness of breath is from her muscular dystrophy versus GI bleed and anemia Plan: She has2 large-bore IVs Transfused 2 units packed RBCs Overnight and will get another 2 units today.General surgeon has recommended that she be transfused to 10 g of hemoglobin Monitor H&H every 6 hours IV Protonix twice daily Surgery consult Done for possible EGD and colonoscopy But Dr. Cedillo does not feel he has a surgical procedure to offer at this time. He recommended a nuclear medicine tagged cell scan. That was done today. There is no active source of bleeding. She is scheduled to see Dr. Pruitt in the office tomorrow for a follow-up colonoscopy and she would like to keep that appointment. I have given her the option of being transfused, observed overnight, and this continues to stay stable may go home tomorrow. Or I can see if I can talk to interventional radiology or a general surgeon at [facility] for a transfer since we have not located the source of her bleeding. She has opted to be transfused and go home tomorrow. She would rather take it slow. See if she can pay more attention to her body and see when she is bleeding and come in for evaluation then. I told her that there may be a possibility that she would be transferred from our emergency room to [facility] with her next GI bleed. Avoid NSAIDs, aspirin and anticoagulation. Qualifiers: GI bleed type/associated pathology: unspecified gastrointestinal hemorrhage type Qualified Code(s): K92.2 - Gastrointestinal hemorrhage, unspecified (2) Symptomatic acute blood loss anemia Conclusion/Plan: The patient has been having symptoms of increasing generalized weakness, fatigue , feeling faint and increasing shortness of breath with exertion. The patient was pale on presentation to the emergency department and found to have a hemoglobin of 5.6. Given her symptomatic anemia the patient was transfused 2 units of packed RBCs. The patient also had positive stool guaiac therefore there is concern for possible GI bleed. The patient is being admitted to the hospital for blood transfusion and monitoring and further assessment for GI bleeding. She is to get another 2 units tonight for a goal of >[address] Mayberry'es recommendation. (3) Iron deficiency anemia Conclusion/Plan: The patient has a history of iron deficiency anemia and has received iron infusions in the past. Her last infusion was in October 2017. She states that she received 3-4 infusions one week apart after her hospitalization at [facility]. We do not have any record of her previous iron level but her ferritin level from today was low at 8.4 which is consistent with persistent iron deficiency anemia. She is due for another iron transfusion tomorrow. Hopefully she will have finished her blood transfusions can be discharged in the morning for her to then see Dr. Pruitt and then returned to the [facility] clinic to get the iron infusion Qualifiers: Iron deficiency anemia type: chronic blood loss Qualified Code(s): D50.0 - Iron deficiency anemia secondary to blood loss (chronic) (4) Hypertension Conclusion/Plan: Patient's blood pressure was elevated on presentation but did improve when patient was brought to the medical alvarado. Given the patient's possible ongoing GI bleed we will avoid her antihypertensive medications for now in the case that she develops hypotension. If the patient's blood pressure does become uncontrolled we can then restart her home antihypertensive medication. We will continue to monitor her blood pressure while she is hospitalized and for the last day she has been 120's to 140's systolic. (5) Hyponatremia Conclusion/Plan: Patient does have hyponatremia on presentation with a sodium of 128. Patient appears to be hypokalemic with hypovolemic hyponatremia likely secondary to dehydration as the patient has had poor appetite. The patient was given IV fluid and blood transfusion and repeat sodium has improved today but is still not normal (6) Fascioscapulohumeral muscular dystrophy Conclusion/Plan: Patient has chronic daily symptoms of fatigue and sleepiness. She is not on any current treatment. She states that she has had very mild progression of disease over the years and has made small adjustments in her life to adapt to her muscle weakness. She does use a cane when going up and down the stairs but otherwise does not require any assistance device or wheelchair and is quite active. (7) Atrial fibrillation Conclusion/Plan: Patient has a history of paroxysmal atrial fibrillation. 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 The patient is not on any anticoagulation due to her history of GI bleeding. For now we will monitor the patient on telemetry and will hold off on giving her any anticoagulation. The patient has a chads 2 score of 2.Rate has been in the 70s all day today. No change in medication Qualifiers: Atrial fibrillation type: paroxysmal Qualified Code(s): I48.0 - Paroxysmal atrial fibrillation (8) Primary biliary cirrhosis Conclusion/Plan: Patient has a history of primary biliary cirrhosis. She is asymptomatic aside from slightly elevated LFTs. The patient's LFTs do appear to be slightly elevated on presentation today with AST of 53 and an alk phos of 221. The patient has not had any extensive workup but does have a CT scan from [facility] that is showing evidence of cirrhosis and has been told she has an elevated DWAINE in the past. There is no record of the patient having had a test for antimitochondrial antibody which is specific for PBC. At this point the patient appears to be stable and there is no need for any acute intervention.She does not have esophageal varices.A Child-Cook score has 1 point for total bilirubin, 2 points for serum albumin, 1 for an INR that is normal, 1 point for no ascites, one point for no hepatic encephalopathy. She has 6 points which is a class A. One year survival is 100% with 2 year survival at 85%.
--- NOTE | 2018-02-17 01:31 | CONSULTATION NOTE ---
DATE OF SERVICE: 02/16/2018 Physician: Cristian Phillips MD DIAGNOSIS: Gastrointestinal bleeding. HISTORY OF PRESENT ILLNESS: A 77-year-old, white, female patient who has [facility] with a history of recurrent GI bleeding. She was most recently seen at [facility] in August 2017, where she had presented herself with weakness and a hemoglobin of 5. She was evaluated with upper and lower endoscopy and, I believe, a form of angiography, although I cannot b e certain about that. The findings were a fairly unremarkable upper GI endoscopy with no source of b leeding identified and no ulcers seen or any blood, and GI tract varices were not seen, although she does have a history of biliary cirrhosis. Colonoscopy showed 2 areas of angiodysplasia, which were t reated with laser therapy. She was transfused and discharged, given outpatient iron transfusions and did well until this past few days, where she again developed weakness, did not have melena or hemato chezia and no noticeable GI bleeding. She states that her stools are a little dark, but not black. On arrival to the emergency room here yesterday, on 02/15/2018, hemoglobin is again 5.6, hematocrit 1 7.6. She has been transfused 2 units of packed cells today. Her hemoglobin is 8.4. She is resting comfortably in bed, alert and oriented. No complaints. No abdominal pain. Rectal exam here yesterd ay showed guaiac positive stools. No mass or tumor is noted. IMPRESSION: Recurrent probable colonic bleeding. My recommendation is to go to a bleeding scan, alt lalo I do not think she is bleeding fast enough for that to be positive. My next recommendation wou ld be angiography to see if we can identify a source of bleeding. Angiography would have to be done at another institution, but if we see a localized source of bleeding on her radioactive tagged red ce ll nuclear medicine scan today, then I would recommend resecting the appropriate segment of colon in the next day or so. Appreciate the consultation. TD: 02/16/2018 13:18
[2018-02-17] MEDS: SODIUM CHLORIDE FLUSH 0.9% 10 ML SYRINGE IVP SCH ×2 (02:55→08:02)
[2018-02-17 06:19] LABS: BASOPHILS # (AUTO) 0.1 10^3/uL (0.0-0.1); BASOPHILS % (AUTO) 1.3 %; EOSINOPHILS # (AUTO) 0.2 10^3/uL (0.0-0.7); EOSINOPHILS % (AUTO) 4.2 %; HGB - HEMOGLOBIN 10.4 g/dL (12.0-16.0); LYMPHOCYTES # (AUTO) 0.6 10^3/uL (1.5-3.5); LYMPHOCYTES % (AUTO) 14.6 %; MEAN CORPUSCULAR HEMOGLOBIN 27.2 pg (27.0-31.0); MEAN CORPUSCULAR HGB CONC 33.6 g/dL (32.0-36.0); MEAN PLATELET VOLUME 8.8 fL (7.9-10.8); MONOCYTES # (AUTO) 0.6 10^3/uL (0.0-1.0); MONOCYTES % (AUTO) 12.9 %; PLT - PLATELET COUNT 109 10^3/uL (130-450); RED BLOOD COUNT 3.84 10^6/uL (4.20-5.40); WHITE BLOOD COUNT 4.4 x10^3/uL (4.8-10.8)
[2018-02-17 06:29] LABS: ALBUMIN/GLOBULIN RATIO 0.9 (1.0-2.2); CALCIUM 8.3 mg/dL (8.5-10.3); CREATININE 0.5 mg/dL (0.4-1.0); TOTAL PROTEIN 6.5 g/dL (6.7-8.2)
[2018-02-17] MEDS: SODIUM CHLORIDE 0.9% 1,000 ML IV SCH (06:29)
[2018-02-17] MEDS: ASPIRIN CHEW 81 MG TABLET PO SCH (08:02)
[2018-02-17] MEDS: PANTOPRAZOLE 40 MG VIAL IVP SCH (08:02)
[2018-02-17] MEDS: CHOLECALCIFEROL 1,000 UNIT TABLET PO SCH (08:02)
[2018-02-17] MEDS: POLYETHYLENE GLYCOL 3350 17 GM PACKET PO SCH (08:03)
[2018-02-17] MEDS: MECOBALAMIN 5000 MCG PO SCH (08:03)
--- NOTE | 2018-02-17 08:17 | Discharge Plan ---
Discharge Plan Disposition: 01 Home, Self Care Condition: Stable Diet: Regular Activity Restrictions: No Restrictions Shower Restrictions: No Driving Restrictions: No Additional Instructions or Follow Up instructions: You are admitted to the hospital because of fatigue, weakness. After evaluation we found you to have severe anemia. This is not a new problem. You had an episode of severe anemia in August of this year and were transferred to [facility] did an upper and lower endoscopy and found you to have telangiectasias or arteriovenous malformations of your large bowel. Those were lasered. Unfortunately their report does not indicate exactly where those telangiectasias are. A nuclear medicine tagged red cell scan was negative with us and could not localize where you were bleeding from We did do a surgical consult on you. General surgery feels that this will be a difficult problem to solve since the source of your bleeding is not easily accessible. He did not feel repeat endoscopy was going to help figure out where you were bleeding. We transfused you a total of 4 units of packed red cells. We would ask you to avoid any aspirin or nonsteroidal medication in the future until we find the source of your bleeding. Next steps: You already have an appointment with Dr. Pruitt for a surveillance colonoscopy today. Keep that appointment. He will discuss your case with you and suggestions for the future may be angiogram of the arteries of your bowel, video endoscopy, possible referral to another surgical garment inspector for surgery. All of these are options that you and I have discussed. If you develop severe fatigue, shortness of breath, dark stools, and suspect that you are anemic again please call your primary care provider to get a CBC. You might want to consider having a routine CBC done every 2-3 weeks for a bit to make sure that the anemia is not creeping up on you again. No Smoking: If you smoke, Please STOP! Call for help. Follow-up with: Ana Villegas PA [Primary Care Provider] -
[2018-02-17 08:49] VITALS: BP 164/75
--- NOTE | 2018-02-24 10:54 | DISCHARGE SUMMARY ---
Physician: María Perez MD DATE OF ADMISSION: 02/15/2018 DATE OF DISCHARGE: 02/17/2018 PRIMARY CARE PROVIDER: RALPH Greco DISCHARGE DIAGNOSES 1. Gastrointestinal hemorrhage. 2. Symptomatic anemia. 3. Iron deficiency anemia. 4. Acute blood loss anemia. 5. Arteriovenous malformation of colon. 6. Hypertension. 7. Hyponatremia. 8. Primary biliary cirrhosis. DISCHARGE MEDICATIONS 1. Aspirin 81 mg a day. 2. Vitamin D 5000 units daily. 3. Enalapril 10 mg daily. 4. Lactobacillus 1 capsule daily. 5. Lorazepam 1 mg p.o. t.i.d. PRINCIPAL PROCEDURES 1. Transfusion of 4 units of packed cells. 2. Gastrointestinal bleed scan, nuclear medicine, with no active gastrointestinal bleeding evident. HOSPITAL COURSE: Patient is a 77-year-old female who has facioscapulohumeral muscular dystrophy, cody matilde biliary cirrhosis, hypertension, Raynaud syndrome, paroxysmal atrial fibrillation, and iron defi ciency anemia, who presents to the emergency department with a chief complaint of severe generalized weakness. The patient was seen in our emergency room on August 26 with fatigue and presyncope. She was found to have a hemoglobin of 5.3 and transferred to [facility] because there was concern of possible navarro iceal bleeding, given her history of primary biliary cirrhosis. Her primary care provider did provid e us with lab studies confirming an elevated DWAINE and antimitochondrial antibody specific for primary biliary cirrhosis. At [facility], the patient underwent an EGD and colonoscopy, as well as trans fusion. EGD was negative, and colonoscopy found her to have 2 colonic angioectasias, which were sujata nicolette with coagulation. Unfortunately, the location of where those angioectasias were was not included in the operative report. She was told to avoid all nonsteroidals. She received an iron infusion at [facility]. She was also found to have paroxysmal atrial fibrillation ,with a CHADS score of 4, but is unable to be anticoagulated, given her history of presumed gastrointestinal bleed. Since dis charge from [facility], she has received 3-4 more iron infusions, with her last infusion being 2017. Her reticulocyte index during her hospitalization was consistent with hypoproliferative stat e, and referral to Hematology for consideration of bone marrow biopsy was recommended if the patient did not respond to iron therapy. The patient had been feeling well. She does have chronic symptoms of fatigue and sleepiness secondary to her muscular dystrophy, and that was at baseline. Over the la st 2-3 weeks, she had increasing fatigue with increasing generalized weakness and feeling faint. She was initially attributing it to her muscular dystrophy but, over the last 2 days, she felt that she was going to pass out on multiple occasions. Three weeks ago, she did talk to her PCP, where she did not feel right, but it was suggested that she wait 2 more weeks to get her CBC checked. It was chec ked earlier this afternoon in her PCP's office, found to be 5.7 grams of hemoglobin. She was sent to the emergency room. She has shortness of breath but no chest pain. HOSPITAL COURSE: She was afebrile, tachycardic and a heart rate of 102. Mildly hypertensive, in no respiratory distress. She was pale on physical examination. Over the course of her stay, she receiv ed 4 units of packed cells. We had General Surgery see her in consult. General Surgery felt that archie had nothing to offer her here, since it would be difficult to localize a source of GI bleeding. [facility] tagged cells was negative. The patient also had hyponatremia on exam. That was stable. High blood pressure remained during her stay with systolics between 139 and 145 on her usual home med ications. She is discharged to home with the expectation that she may have continued bleeding. When she comes back to the emergency room, she may need to be transferred to a higher level of care for angiogram or video endoscopy. She is scheduled to see Dr. Pruitt today, the day of discharge, as well as to ge t an iron transfusion. She is going to discuss her case with Dr. Pruitt to see if he has any other recommendations. PHYSICAL EXAMINATION VITAL SIGNS: At discharge temperature is 36.6, pulse of 85, blood pressure is 164/75, respirations 2 0, and she is 99% on room air. GENERAL: She is a tall, pleasant, white female who looks her stated age. NECK: Supple. No goiter. LUNGS: Clear to auscultation and percussion. HEART: She has a regular rate and rhythm, even though she has been described as having atrial fibril lation. ABDOMEN: Soft, nontender. Liver edge is not palpable. Normal bowel sounds. She is without clubbin g, cyanosis, or edema. Greater than 30 minutes was spent coordinating discharge. cc: Ana Villegas PA-C TD: 02/23/2018 23:29
== END 2018-02-17 09:34 | disposition home or self-care (01) | DRG 811 ==
LOC: ED 19:12 → MS2 20:32
PROVIDERS: ADMIT Internal Medicine; ATTEND Specialist
PROC: 30233N1 Transfusion of Nonautologous Red Blood Cells into Peripheral Vein, Percutaneous Approach (ICD-10-PCS; principal; 2018-02-15)
DX: D64.9 Anemia, unspecified (principal); K92.2 Gastrointestinal hemorrhage, unspecified; D62 Acute posthemorrhagic anemia; K55.21 Angiodysplasia of colon with hemorrhage; E87.1 Hypo-osmolality and hyponatremia; F32.9 Major depressive disorder, single episode, unspecified; G71.0 Muscular dystrophy; K74.3 Primary biliary cirrhosis; I10 Essential (primary) hypertension; K57.90 Diverticulosis of intestine, part unspecified, without perforation or abscess without bleeding; I48.0 Paroxysmal atrial fibrillation; I73.00 Raynaud's syndrome without gangrene; N20.0 Calculus of kidney; Z79.82 Long term (current) use of aspirin; Z87.891 Personal history of nicotine dependence
CPT/HCPCS: 36415; 78278; 80053; 82728; 83690; 85025; 85610; 85730; 86850; 86900; 86901; 86920; 96374; 99284

== ENCOUNTER 2018-02-21 20:31 | Outpatient (CLI) | payer MEDICARE, OTHER ==
--- NOTE | 2018-02-21 21:53 | Ultrasound Report ---
Reason: RIGHT UPPER ARM SWELLING Procedure Date: 02/21/2018 Accession Number: [id number] / [id number] Procedure: US - Duplex Ext Veins Right CPT Code: FULL RESULT: EXAM: RIGHT LOWER EXTREMITY VENOUS ULTRASOUND EXAM DATE: 02/21/2018 09:04 PM. CLINICAL HISTORY: RIGHT UPPER ARM SWELLING. COMPARISON: None. TECHNIQUE: Real-time sonographic vascular imaging was performed by the certified juvenile probation officer through the lower extremity utilizing both color-flow and Doppler spectral analysis. Multiple novelties sales representative static images were saved for review. FINDINGS: Common Femoral Vein (CFV): Normal. CFV-GSV Junction: Normal. Profunda Femoral Vein (PFV): Normal. Femoral Vein (FV) Prox: Normal. Femoral Vein (FV) Mid: Normal. Femoral Vein (FV) Dist: Normal. Popliteal Vein: Normal. Posterior Tibial Veins: Normal. Peroneal Veins: Normal. Contralateral Side CFV: Normal. Other: Small nonocclusive superficial thrombosis seen within the right cephalic vein at the antecubital level. IMPRESSION: 1. No evidence for deep venous thrombosis. 2. Small nonocclusive superficial thrombosis seen within the right cephalic vein at the antecubital level. RADIA The above findings were discussed with Julisa Duffy by Dr. Genoveva Kitchen at 21:51 hrs on 02/21/18. The wrong template was loaded on the report. The correct template with the correct report is below. EXAM: Right upper extremity venous ultrasound FINDINGS: Internal Jugular Vein (IJV): Normal. Subclavian Vein (SCV): Normal. Axillary Vein : Normal. Cephalic Vein (superficial vein): Small nonocclusive superficial thrombosis seen within the right cephalic vein at the antecubital level. Basilic Vein (superficial vein): Normal. Brachial Vein: Normal. IMPRESSION: 1. No evidence for deep vein thrombosis. 2. Small nonocclusive superficial thrombosis seen within the right cephalic vein at the antecubital level. The above findings were discussed with Julisa Duffy by Dr. Genoveva Kitchen at 21:51. RADIA
== END 2018-02-21 20:32 | disposition home or self-care (01) ==
LOC: DI 20:31
PROVIDERS: ATTEND Nurse Practitioner Family
DX: I82.811 Embolism and thrombosis of superficial veins of right lower extremity (principal)

== ENCOUNTER 2018-03-14 06:05 | Day surgery (SDC) | payer MEDICARE, OTHER ==
[2018-03-14] MEDS ORDERED: LACTATED RINGERS 1,000 ML IV ONE (06:48)
[2018-03-14] MEDS ORDERED: MIDAZOLAM 2 MG/2 ML VIAL IVP ONE (07:34)
[2018-03-14] MEDS ORDERED: fentaNYL 250 MCG/5 ML VIAL IVP ONE (07:34)
[2018-03-14] MEDS ORDERED: LIDO GARGLE 30 ML BOTTLE PO ONE (07:36)
[2018-03-14 09:16] VITALS: BP 143/63
== END 2018-03-14 06:06 | disposition home or self-care (01) ==
LOC: SDS 06:05
PROVIDERS: ATTEND Surgery
PROC: 0DJD8ZZ Inspection of Lower Intestinal Tract, Via Natural or Artificial Opening Endoscopic (ICD-10-PCS; 2018-03-14)
PROC: 0DB68ZX Excision of Stomach, Via Natural or Artificial Opening Endoscopic, Diagnostic (ICD-10-PCS; principal; 2018-03-14 07:30)
PROC: 0DB78ZX Excision of Stomach, Pylorus, Via Natural or Artificial Opening Endoscopic, Diagnostic (ICD-10-PCS; 2018-03-14 07:30)
DX: D62 Acute posthemorrhagic anemia (principal); R19.5 Other fecal abnormalities; K25.4 Chronic or unspecified gastric ulcer with hemorrhage; K44.9 Diaphragmatic hernia without obstruction or gangrene; K55.21 Angiodysplasia of colon with hemorrhage; K57.31 Diverticulosis of large intestine without perforation or abscess with bleeding; K64.8 Other hemorrhoids; I78.1 Nevus, non-neoplastic; I10 Essential (primary) hypertension; Z79.899 Other long term (current) drug therapy; Z79.82 Long term (current) use of aspirin; Z87.891 Personal history of nicotine dependence
CPT/HCPCS: 43239; 45378; 87081; A9270; J3010; J7120

== ENCOUNTER 2018-04-07 09:09 | Outpatient (CLI) | payer MEDICARE, OTHER ==
[2018-04-07 09:41] LABS: BASOPHILS % (AUTO) 1.3 %; EOSINOPHILS # (AUTO) 0.1 10^3/uL (0.0-0.7); EOSINOPHILS % (AUTO) 3.9 %; HGB - HEMOGLOBIN 9.1 g/dL (12.0-16.0); LYMPHOCYTES # (AUTO) 0.5 10^3/uL (1.5-3.5); LYMPHOCYTES % (AUTO) 16.3 %; MEAN CORPUSCULAR HEMOGLOBIN 23.5 pg (27.0-31.0); MEAN CORPUSCULAR HGB CONC 31.2 g/dL (32.0-36.0); MEAN CORPUSCULAR VOLUME 75.1 fL (81.0-99.0); MEAN PLATELET VOLUME 8.3 fL (7.9-10.8); MONOCYTES # (AUTO) 0.4 10^3/uL (0.0-1.0); MONOCYTES % (AUTO) 13.5 %; NEUTROPHILS # (AUTO) 2.2 10^3/uL (1.5-6.6); PLT - PLATELET COUNT 146 10^3/uL (130-450); RED BLOOD COUNT 3.89 10^6/uL (4.20-5.40); RED CELL DISTRIBUTION WIDTH 19.7 % (12.0-15.0); WHITE BLOOD COUNT 3.3 x10^3/uL (4.8-10.8)
[2018-04-07 10:03] LABS: ALBUMIN 3.2 g/dL (3.2-5.5); ALBUMIN/GLOBULIN RATIO 0.7 (1.0-2.2); BILIRUBIN,TOTAL 0.5 mg/dL (0.2-1.0); CALCIUM 8.5 mg/dL (8.5-10.3); CREATININE 0.4 mg/dL (0.4-1.0); TOTAL PROTEIN 7.5 g/dL (6.7-8.2)
[2018-04-07 10:07] LABS: PLATELET ESTIMATE, MANUAL NORMAL (130-450,000) (NORMAL); PLATELET MORPHOLOGY NORMAL APPEARANCE (NORMAL)
== END 2018-04-07 09:10 | disposition home or self-care (01) ==
LOC: LAB 09:09
PROVIDERS: ATTEND Physician Assistant
DX: D64.9 Anemia, unspecified (principal); K74.3 Primary biliary cirrhosis; R53.83 Other fatigue; D62 Acute posthemorrhagic anemia
CPT/HCPCS: 36415; 80053; 82728; 83540; 84466; 85025

== ENCOUNTER 2018-05-19 10:12 | Outpatient (CLI) | payer MEDICARE, OTHER ==
[2018-05-19 17:36] LABS: BASOPHILS % (AUTO) 1.8 %; EOSINOPHILS % (AUTO) 3.6 %; HGB - HEMOGLOBIN 13.6 g/dL (12.0-16.0); LYMPHOCYTES % (AUTO) 20.8 %; MEAN CORPUSCULAR HEMOGLOBIN 25.7 pg (27.0-31.0); MEAN CORPUSCULAR HGB CONC 31.1 g/dL (32.0-36.0); MEAN CORPUSCULAR VOLUME 82.6 fL (81.0-99.0); MEAN PLATELET VOLUME 9.9 fL (7.9-10.8); MEAN RETIC VALUE 113.6; MONOCYTES % (AUTO) 11.8 %; PLT - PLATELET COUNT 111 10^3/uL (130-450); RED CELL DISTRIBUTION WIDTH 32.8 % (12.0-15.0); WHITE BLOOD COUNT 2.7 x10^3/uL (4.8-10.8)
[2018-05-19 17:37] LABS: ABNORMAL LYMPHS % (MANUAL) 0 %; BAND NEUTROPHILS % (MANUAL) 0 %
[2018-05-19 17:51] LABS: EOSINOPHILS # (MANUAL) 0.1 10^3/uL (0-0.7); LYMPHOCYTES # (MANUAL) 0.7 10^3/uL (1.5-3.5); LYMPHOCYTES % (MANUAL) 25 %; MONOCYTES # (MANUAL) 0.2 10^3/uL (0.0-1.0); NEUTROPHILS # (MANUAL) 1.7 10^3/uL (1.5-6.6); NEUTROPHILS % (MANUAL) 64 %; PLATELET ESTIMATE, MANUAL DECREASED (<130,000) (NORMAL); PLATELET MORPHOLOGY NORMAL APPEARANCE (NORMAL); RBC MORPHOLOGY (MULTIPLE) 4+ ANISOCYTOSIS (NORMAL)
[2018-05-19 17:52] LABS: DIFFERENTIAL COMMENT MANUAL DIFFERENTIAL
== END 2018-05-19 10:13 | disposition home or self-care (01) ==
LOC: LAB.F 10:12
PROVIDERS: ATTEND Physician Assistant
DX: D50.9 Iron deficiency anemia, unspecified (principal)
CPT/HCPCS: 36415; 82728; 85025; 85044

== ENCOUNTER 2018-07-21 13:01 | Outpatient (CLI) | payer MEDICARE, OTHER | END 2018-07-21 13:02 | disposition home or self-care (01) | LOC: DI 13:01 | PROVIDERS: ATTEND Physician Assistant | DX: R01.1 Cardiac murmur, unspecified (principal); I35.1 Nonrheumatic aortic (valve) insufficiency | CPT/HCPCS: 93306 ==

== ENCOUNTER 2018-08-19 16:16 | Outpatient (CLI) | payer MEDICARE, OTHER ==
[2018-08-19] MEDS ORDERED: IOPAMIDOL-300 100 ML VIAL ONE (17:11)
[2018-08-19] MEDS ORDERED: IOPAMIDOL-300 100 ML VIAL IVP ONE (17:45)
--- NOTE | 2018-08-20 18:07 | CT Report ---
Reason: ESSENTIAL HYPERTENSION Procedure Date: 08/19/2018 Accession Number: [id number] / [id number] Procedure: CT - ANGIO ABDOMEN W/WO CPT Code: FULL RESULT: EXAM: CT ABDOMEN EXAM DATE: 08/19/2018 05:36 PM. CLINICAL HISTORY: essential hypertension. COMPARISON: ABDOMEN/PELVIS W/ 04/19/2015 11:01 AM. TECHNIQUE: Routine helical CT imaging was performed through the abdomen. Images are obtained in the arterial phase. IV contrast: ISOVUE 300: 100 mL Enteric contrast: No. Reconstruction: Coronal and sagittal. In accordance with CT protocol optimization, one or more of the following dose reduction techniques were utilized for this exam: automated exposure control, adjustment of mA and/or KV based on patient size, or use of iterative reconstructive technique. FINDINGS: Lung Bases: The left pulmonary artery measures up to 2.7 cm and the right pulmonary artery up to 2.4 cm, enlarged. Dependent changes are seen at both lung bases. Liver: Enlarged, mildly hypoattenuating, hepatic steatosis. Hepatic surface contour is mildly nodular. Gallbladder/Bile Ducts: Unremarkable. Spleen: Maximum dimension of the spleen is 12 cm, subjectively enlarged in the three-dimensional volume. Pancreas: Normal. Adrenal Glands: Normal. Kidneys: 0.7 cm left inferior pole calculus. Right renal cyst. Peritoneal Cavity/Bowel: Normal. No free fluid, free air or adenopathy. No masses or acute inflammatory process. Vasculature: The arterial system is moderately atherosclerotic with a tortuous aorta without an aneurysm. The celiac branching pattern is conventional with atherosclerosis at the origin of the celiac artery, less than 50% stenosis. There is an irregular beaded appearance of the proximal superior mesenteric artery, image 79 series 10. There are singular bilateral renal arteries with mild to moderate calcifications at the ostia, less than 50% stenosis. There is focal beaded irregularity over the right renal artery, image 59 and image 60 series 9, as well as image 103 series 4. Mild irregularity of the left renal artery is also seen on image 71 series 9. The inferior mesenteric artery is unremarkable. Bones: No aggressive osseous lesions are detected. Other: Visualized pelvic vasculature and pelvic organs are unremarkable with the exception of a distended urinary bladder. IMPRESSION: Hypodense nodular liver, correlate to history of steatosis or cirrhosis. Irregular appearance of the right renal artery, left renal artery and proximal superior mesenteric artery. Given the clinical concern for fibromuscular dysplasia and new onset of marked hypertension, these findings are suspicious for fibromuscular dysplasia. Recommendation: Referral to endovascular specialist (IR, some vascular surgery practices and some cardiology practices perform this) for consultation and consideration of diagnostic angiogram with possible intervention. RADIA
== END 2018-08-19 16:17 | disposition home or self-care (01) ==
LOC: DI 16:16
PROVIDERS: ATTEND Physician Assistant
DX: K76.89 Other specified diseases of liver (principal); R93.5 Abnormal findings on diagnostic imaging of other abdominal regions, including retroperitoneum
CPT/HCPCS: 74175; Q9967

== ENCOUNTER 2018-10-13 08:22 | Outpatient (CLI) | payer MEDICARE, OTHER | END 2018-10-13 08:23 | disposition home or self-care (01) | LOC: RT.S 08:22 | PROVIDERS: ATTEND Internal Medicine Cardiovascular Disease | DX: I45.10 Unspecified right bundle-branch block (principal); I10 Essential (primary) hypertension | CPT/HCPCS: 93005 ==

== ENCOUNTER 2020-08-26 09:47 | Outpatient (CLI) | payer MEDICARE, OTHER ==
[2020-08-26 14:57] LABS: BASOPHILS # (AUTO) 0.1 10^3/uL (0.0-0.1); BASOPHILS % (AUTO) 1.5 %; EOSINOPHILS # (AUTO) 0.2 10^3/uL (0.0-0.7); EOSINOPHILS % (AUTO) 3.9 %; HCT - HEMATOCRIT 47.6 % (37.0-47.0); HGB - HEMOGLOBIN 14.8 g/dL (12.0-16.0); LYMPHOCYTES # (AUTO) 0.6 10^3/uL (1.5-3.5); MEAN CORPUSCULAR HEMOGLOBIN 29.5 pg (27.0-31.0); MEAN CORPUSCULAR HGB CONC 31.1 g/dL (32.0-36.0); MEAN CORPUSCULAR VOLUME 94.8 fL (81.0-99.0); MEAN PLATELET VOLUME 12.8 fL (7.9-10.8); MONOCYTES # (AUTO) 0.7 10^3/uL (0.0-1.0); MONOCYTES % (AUTO) 15.7 %; NEUTROPHILS # (AUTO) 2.6 10^3/uL (1.5-6.6); NEUTROPHILS % (AUTO) 63.7 %; PLT - PLATELET COUNT 87 10^3/uL (130-450); RED BLOOD COUNT 5.02 10^6/uL (4.20-5.40); RED CELL DISTRIBUTION WIDTH 14.7 % (12.0-15.0); WHITE BLOOD COUNT 4.1 x10^3/uL (4.8-10.8)
[2020-08-26 15:35] LABS: ALBUMIN 3.3 g/dL (3.2-5.5); ALBUMIN/GLOBULIN RATIO 0.6 (1.0-2.2); ALKALINE PHOSPHATASE 265 IU/L (42-121); ALT ALANINE AMINOTRANSFERASE 60 IU/L (10-60); AST ASPARTATE AMINOTRANSFERASE 91 IU/L (10-42); BILIRUBIN,TOTAL 1.2 mg/dL (0.2-1.0); BUN - BLOOD UREA NITROGEN 13 mg/dL (6-20); CALCIUM 8.9 mg/dL (8.5-10.3); CARBON DIOXIDE - CO2 27 mmol/L (21-32); CHLORIDE 96 mmol/L (101-111); CHOL/HDL RATIO 2.6 (<4.4); CHOLESTEROL 222 mg/dL; CREATININE 0.6 mg/dL (0.4-1.0); GFR - MDRD 97 (>89); GLUCOSE 86 mg/dL (70-100); HDL CHOLESTEROL 86 mg/dL; LDL CHOLESTEROL,CALCULATED 125 mg/dL; LDL/HDL RATIO 1.5 (<4.4); POTASSIUM 3.6 mmol/L (3.5-5.0); SODIUM 132 mmol/L (135-145); THYROID STIMULATING HORMONE 2.72 uIU/mL (0.34-5.60); TOTAL PROTEIN 8.7 g/dL (6.7-8.2); TRIGLYCERIDES 57 mg/dL; VLDL CHOLESTEROL 11 mg/dL
[2020-08-26 15:36] LABS: FREE T3 2.79 pg/mL (2.5-3.9)
[2020-08-26 15:37] LABS: FREE T4 (FREE THYROXINE) 0.99 ng/dL (0.58-1.64)
== END 2020-08-26 09:48 | disposition home or self-care (01) ==
LOC: LAB.S 09:47
PROVIDERS: ATTEND Family Medicine
DX: L65.9 Nonscarring hair loss, unspecified (principal); K57.30 Diverticulosis of large intestine without perforation or abscess without bleeding; H91.93 Unspecified hearing loss, bilateral; K27.9 Peptic ulcer, site unspecified, unspecified as acute or chronic, without hemorrhage or perforation; I10 Essential (primary) hypertension
CPT/HCPCS: 36415; 80053; 80061; 83721; 84439; 84443; 84481; 85025

== ENCOUNTER 2021-05-26 10:15 | Outpatient (CLI) | payer MEDICARE, OTHER ==
[2021-05-26 14:23] LABS: BASOPHILS % (AUTO) 1.2 %; EOSINOPHILS # (AUTO) 0.1 10^3/uL (0.0-0.7); EOSINOPHILS % (AUTO) 4.1 %; HCT - HEMATOCRIT 46.1 % (37.0-47.0); HGB - HEMOGLOBIN 14.7 g/dL (12.0-16.0); LYMPHOCYTES # (AUTO) 0.6 10^3/uL (1.5-3.5); LYMPHOCYTES % (AUTO) 17.7 %; MEAN CORPUSCULAR HEMOGLOBIN 30.1 pg (27.0-31.0); MEAN CORPUSCULAR HGB CONC 31.9 g/dL (32.0-36.0); MEAN CORPUSCULAR VOLUME 94.5 fL (81.0-99.0); MEAN PLATELET VOLUME 12.4 fL (7.9-10.8); MONOCYTES # (AUTO) 0.6 10^3/uL (0.0-1.0); MONOCYTES % (AUTO) 15.9 %; NEUTROPHILS # (AUTO) 2.1 10^3/uL (1.5-6.6); NEUTROPHILS % (AUTO) 60.8 %; PLT - PLATELET COUNT 106 10^3/uL (130-450); RED BLOOD COUNT 4.88 10^6/uL (4.20-5.40); RED CELL DISTRIBUTION WIDTH 13.9 % (12.0-15.0); WHITE BLOOD COUNT 3.5 x10^3/uL (4.8-10.8)
[2021-05-26 14:40] LABS: ALBUMIN 3.3 g/dL (3.2-5.5); ALBUMIN/GLOBULIN RATIO 0.6 (1.0-2.2); BILIRUBIN,TOTAL 0.9 mg/dL (0.2-1.0); CALCIUM 9.1 mg/dL (8.5-10.3); CREATININE 0.5 mg/dL (0.4-1.0); POTASSIUM 3.7 mmol/L (3.5-5.0); TOTAL PROTEIN 8.7 g/dL (6.7-8.2)
== END 2021-05-26 10:16 | disposition home or self-care (01) ==
LOC: LAB.S 10:15
PROVIDERS: ATTEND Family Medicine
DX: Z00.00 Encounter for general adult medical examination without abnormal findings (principal)
CPT/HCPCS: 36415; 80053; 85025

== ENCOUNTER 2021-12-26 13:01 | Emergency (ER) | payer MEDICARE, OTHER ==
[2021-12-26 13:46] LABS: BASOPHILS % (AUTO) 0.5 %; EOSINOPHILS % (AUTO) 0.2 %; HCT - HEMATOCRIT 32.2 % (37.0-47.0); HGB - HEMOGLOBIN 10.2 g/dL (12.0-16.0); LYMPHOCYTES # (AUTO) 0.8 10^3/uL (1.5-3.5); LYMPHOCYTES % (AUTO) 13.9 %; MEAN CORPUSCULAR HEMOGLOBIN 30.3 pg (27.0-31.0); MEAN CORPUSCULAR HGB CONC 31.7 g/dL (32.0-36.0); MEAN CORPUSCULAR VOLUME 95.5 fL (81.0-99.0); MEAN PLATELET VOLUME 10.5 fL (7.9-10.8); MONOCYTES # (AUTO) 0.7 10^3/uL (0.0-1.0); MONOCYTES % (AUTO) 11.6 %; NEUTROPHILS # (AUTO) 4.3 10^3/uL (1.5-6.6); NEUTROPHILS % (AUTO) 72.9 %; PLT - PLATELET COUNT 145 10^3/uL (130-450); RED BLOOD COUNT 3.37 10^6/uL (4.20-5.40); RED CELL DISTRIBUTION WIDTH 15.2 % (12.0-15.0); WHITE BLOOD COUNT 5.9 x10^3/uL (4.8-10.8)
[2021-12-26 13:53] LABS: INR 1.2 (0.8-1.2); PT - PROTHROMBIN TIME 13.1 secs (9.9-12.6)
[2021-12-26 13:59] LABS: ALBUMIN/GLOBULIN RATIO 0.7 (1.0-2.2); CALCIUM 8.9 mg/dL (8.5-10.3); CREATININE 0.4 mg/dL (0.4-1.0); POTASSIUM 3.9 mmol/L (3.5-5.0); TOTAL PROTEIN 7.6 g/dL (6.7-8.2)
--- OUTSIDE RECORDS SUMMARY | 2021-12-26 15:21 | EXTERNAL MEDICAL SUMMARY RPT | Continuity of Care Document ---
:1940 Author Organization [facility] Address [address] [place] [address] Phone Allergies No information. Encounters No information. Functional Status No information. Immunizations No information. Medications date description facility [id number] hydrochlorothiazide All [id number] hydrochlorothiazide All Problems No information. Procedures No information. Results/Labs No information. Social History No information. Vital Signs No information.
--- NOTE | 2021-12-26 15:45 | ED Physician Documentation ---
PD HPI GI BLEED - Stated complaint Stated Complaint: NAUSEA/BLACK STOOL - Chief complaint Chief Complaint: Abd Pain - History obtained from History obtained from: Patient - History of Present Illness Timing - onset: Yesterday Timing - details: Abrupt onset, Still present (She has had 4 or 5 bowel movements of soft black stool since yesterday. Has a feeling of general weakness and lightheadedness. No near syncope. Some intermittent left abdominal crampy pains. No consistent pain.) Associated symptoms: Black/tarry stool, Abdominal pain, Dizzy. No: Vomiting, Constipation, Chest pain, Fever Contributing factors: No: Sick contact, Recent antibiotics Improved by: BM. No: Eating Worsened by: No: Eating Similar symptoms before: No diagnosis (She states she has had 2 prior episodes of GI bleeding with guaiac positive stools and anemia requiring transfusions. Upper and lower endoscopies did not find the source. She had a tagged red cell scan at [facility] which did not identify the obvious source either.) Recently seen: Not recently seen Review of Systems Constitutional: denies: Fever, Chills Nose: denies: Rhinorrhea / runny nose, Congestion Throat: denies: Sore throat Respiratory: denies: Cough GI: reports: Abdominal Pain, Nausea, Bloody / black stool. denies: Abdominal Swelling, Vomiting, Constipation : denies: Dysuria, Frequency Neurologic: reports: Generalized weakness. denies: Near syncope, Syncope, Alter ed mental status PD PAST MEDICAL HISTORY - Past Medical History Cardiovascular: Hypertension, Atrial fibrillation Respiratory: None Neuro: Other Endocrine/Autoimmune: None GI: GI bleed, Other : Kidney stones HEENT: None Psych: Depression, Anxiety Musculoskeletal: None - Past Surgical History General: Colonoscopy, EGD, Other Ortho: Other - Present Medications Home Medications: Ambulatory Orders Medication Instructions Recorded Confirmed Enalapril Maleate 20 mg PO DAILY 08/26/17 11/09/18 LORazepam [Lorazepam] 1 mg PO TID PRN 02/16/18 11/09/18 Metoprolol Succinate [Toprol Xl] 50 mg PO ONCE 08/10/18 11/09/18 hydroCHLOROthiazide 25 mg PO DAILY 10/13/18 11/09/18 [Hydrochlorothiazide] - Allergies Allergies/Adverse Reactions: Allergies Allergy/AdvReac Type Severity Reaction Status Date / Time erythromycin base Allergy Unknown Verified 11/09/18 11:43 Sulfa (Sulfonamide Allergy Unknown Verified 11/09/18 11:43 Antibiotics) - Social History Does the pt smoke?: No Smoking Status: Never smoker Does the pt have substance abuse?: No - Immunizations Immunizations are current?: Yes - POLST Patient has POLST: No POLST Status: DNR PD ED PE NORMAL - Vitals Vital signs reviewed: Yes - General General: Alert and oriented X 3, No acute distress, Well developed/nourished - HEENT HEENT: Pharynx benign - Neck Neck: Supple, no meningeal sign, No adenopathy - Cardiac Cardiac: RRR, No murmur - Respiratory Respiratory: Clear bilaterally - Abdomen Abdomen: Normal bowel sounds, Soft, Non distended, No organomegaly, Other (mild tender with faint guarding LUQ, no percussion nor rebound tenderness. ) - Female Female : Deferred - Rectal Rectal: Other (soft black stool in vault c/w melena. Some hemorrhoid but not tender. ) - Derm Derm: Normal color, Warm and dry - Extremities Extremities: No tenderness to palpate, Normal ROM s pain, No edema, No calf tenderness / cord Results - Vitals Vitals: Vital Signs - 24 hr 12/26/21 12/26/21 13:16 17:00 Temperature 36.4 C L Heart Rate 94 83 Respiratory 20 18 Rate Blood Pressure 148/73 H 119/57 L O2 Saturation 98 100 Oxygen O2 Source Room air - Labs Labs: Microbiology 12/26/21 16:07 Occult Blood - Final Stool - Soft Consistency Laboratory Tests 12/26/21 12/26/21 12/26/21 13:38 13:38 13:38 WBC 5.9 RBC 3.37 L Hgb 10.2 L Hct 32.2 L MCV 95.5 MCH 30.3 MCHC 31.7 L RDW 15.2 H Plt Count 145 MPV 10.5 Neut # (Auto) 4.3 Lymph # (Auto) 0.8 L [place] # (Auto) 0.7 Eos # (Auto) 0.0 Baso # (Auto) 0.0 Absolute Nucleated RBC 0.00 Nucleated RBC % 0.0 PT 13.1 H INR 1.2 Sodium Potassium Chloride Carbon Dioxide Anion Gap BUN Creatinine Estimated GFR (MDRD) Glucose Calcium Total Bilirubin AST ALT Alkaline Phosphatase Total Protein Albumin Globulin Albumin/Globulin Ratio Lipase Blood Type O POSITIVE Antibody Screen NEGATIVE 12/26/21 12/26/21 13:38 16:57 WBC RBC Hgb 9.1 L Hct 29.5 L MCV MCH MCHC RDW Plt Count MPV Neut # (Auto) Lymph # (Auto) Raleigh # (Auto) Eos # (Auto) Baso # (Auto) Absolute Nucleated RBC Nucleated RBC % PT INR Sodium 138 Potassium 3.9 Chloride 99 L Carbon Dioxide 28 Anion Gap 11.0 BUN 53 H Creatinine 0.4 Estimated GFR (MDRD) 154 Glucose 111 H Calcium 8.9 Total Bilirubin 1.0 AST 70 H ALT 43 Alkaline Phosphatase 273 H Total Protein 7.6 Albumin 3.0 L Globulin 4.6 H Albumin/Globulin Ratio 0.7 L Lipase 45 Blood Type Antibody Screen - Rads (name of study) abd/pelvic CT Radiology: Prelim report reviewed, See rad report PD MEDICAL DECISION MAKING - ED course Complexity details: reviewed results (She is anemic at hemoglobin 10. Most recent one was 14. We will check it in a few hours to look for interval change. She has not had a melena bowel movement for several hours.), re-evaluated patient, considered differential (Acute GI bleed. Consider diverticular versus gastric. She has had episodes of small bowel bleeding from presumed AVM but not clearly diagnosed in the past. Seen at [facility] with prior episode several years ago.), d/w patient ED course: We do not have surgery or OR on-call today The next 2 days. I discussed this with the patient and her friend that we can look for beds available and nearby facilities for transfer but they have been follow-up chronically and this could take a several day process for transfer. The treatment plan and goal would be to assess for ongoing degree of bleeding and transfusion if gets low enough as well as IV fluids and gastric protection with PPIs. This will be initiated here pending search for transfer. Departure - Departure Clinical Impression: General weakness, Anemia due to acute blood loss GI bleeding Qualifiers: GI bleed type/associated pathology: melena Qualified Code(s): K92.1 - Melena Condition: Stable Record reviewed to determine appropriate education?: Yes
[2021-12-26] MEDS ORDERED: SODIUM CHLORIDE 0.9% 1,000 ML IV STA (16:12)
[2021-12-26] MEDS ORDERED: FAMOTIDINE 20 MG/2 ML VIAL IVP STA (16:13)
[2021-12-26] MEDS ORDERED: ONDANSETRON 4 MG/2 ML VIAL IVP STA (16:14)
[2021-12-26] MEDS ORDERED: MORPHINE 2 MG/ML CARPUJECT IVP STA (16:14)
--- NOTE | 2021-12-26 17:05 | CT Report ---
PROCEDURE: Abdomen/Pelvis WO INDICATIONS: melena stools and LUQ pain 2 days TECHNIQUE: Noncontrast 5 mm thick sections acquired from the diaphragms to the symphysis. 5 mm coronal and sagi ttal reformats were then performed. For radiation dose reduction, the following was used: automated exposure control, adjustment of mA and/or kV according to patient size. COMPARISON: None. FINDINGS: Image quality: Excellent. ABDOMEN: Lung bases: Lung bases are clear. Heart size is normal. Solid organs: Liver is diminutive and demonstrates surface nodularity suggesting cirrhotic transforma tion. Spleen is normal size. Gallbladder is partially contracted. There is some pericholecystic fat s tranding noted. The gallbladder wall is not well characterized. Pancreas is normal in contours. No adrenal nodules. Kidneys are normal in size, without hydronephrosis. A low density cyst is present w ithin the midpole of the right kidney. A nonobstructing calculus is present within the inferior pole of the left kidney which measures approximately 1000 Hounsfield units in density. Peritoneum and bowel: Unenhanced bowel loops demonstrate normal wall thickness and caliber. There ar e extensive sigmoid colon diverticular outpouchings. Some scattered colonic diverticula are present m ore proximally within the colon. Trace pericolonic fat stranding is present adjacent to the mid sigmo id colon (series 6/image 19 and series 3/image 78). No pneumoperitoneum. There is trace low-density f ree pelvic fluid. Nodes and vessels: No retroperitoneal or mesenteric adenopathy by size criteria. Aorta and inferior vena cava are normal in caliber. Dense atheromatous calcifications are present throughout the abdom inal aorta and iliac arteries. Miscellaneous: No ventral hernias. PELVIS: Genitourinary: Bladder wall thickness is normal. Calcifications are layered in the dependent left as pect of the bladder which may represent bladder calculi. Miscellaneous: No inguinal hernias or adenopathy. Bones: No suspicious bony lesions. No vertebral body compression fractures. IMPRESSION: 1. Mildly contracted gallbladder with subtle pericholecystic fat stranding. The significance of this finding is unclear. The liver demonstrates surface nodularity suggesting cirrhotic transformation. Th e pericholecystic fluid may be associated with gallbladder hydrops in the setting of cirrhosis. Howev er, acute cholecystitis cannot be excluded. Consider right upper quadrant ultrasound to further zachary cterize the gallbladder wall is clinically appropriate. 2. Extensive sigmoid colon diverticulosis. Trace pericolonic free fluid is present as well as a small amount of low-density free pelvic fluid. Findings may be associated with acute nonperforated diverti culitis. 3. Left nonobstructing nephrolithiasis. Probable bladder calculi. No hydronephrosis. Ureterolithiasis . Reviewed by: Stacey Graves MD on 12/26/2021 5:03 PM PDT Approved by: Stacey Graves MD on 12/26/2021 5:03 PM PDT Station ID: [id number]
[2021-12-26 17:08] LABS: HCT - HEMATOCRIT 29.5 % (37.0-47.0); HGB - HEMOGLOBIN 9.1 g/dL (12.0-16.0)
[2021-12-26] MEDS ORDERED: LACTATED RINGERS 1,000 ML IV STA (17:39)
[2021-12-26] MEDS ORDERED: PANTOPRAZOLE 40 MG VIAL IVP STA (17:48)
[2021-12-26 21:26] LABS: HCT - HEMATOCRIT 25.7 % (37.0-47.0); HGB - HEMOGLOBIN 8.1 g/dL (12.0-16.0)
--- NOTE | 2021-12-26 21:54 | ED Physician Documentation ---
ED Addendum - Addendum Addendum: 12/26/21 21:53 Patient seen and examined at bedside. Briefly she was signed out to me by Dr. Santana pending hopeful transfer to another facility. Hemodynamics are good and she is comfortable. Her hemoglobin has trended down from 10.2 -> 9.1 -> 8.1. Discussed with patient that she would probably cross the transfusion threshold with the next draw in the morning. She is waitlisted at basically every facility in [facility] with no immediate hope for transfer. I did prese nt the case to the [facility] who has declined based on capacity.
[2021-12-26] MEDS: PANTOPRAZOLE 40 MG VIAL IVP SCH (22:04)
[2021-12-27 06:22] LABS: HCT - HEMATOCRIT 23.8 % (37.0-47.0); HGB - HEMOGLOBIN 7.5 g/dL (12.0-16.0)
--- NOTE | 2021-12-27 07:43 | ED Physician Documentation ---
ED Addendum - Addendum Addendum: 12/27/21 07:14 Patient received in signout. Introduced myself to the patient and her daughter at the bedside. She had just been up to the restroom to urinate but denied any bowel movements. Reviewed her latest hemoglobin which is trended down to 7.5. She has required blood transfusions in the past. Discussed recommendation for blood transfusion which she is agreeable to. Patient remains boarding in our emergency department with no excepting facility.No surgeon on-call this weekend for endoscopies. 12/27/21 13:07 Per RN, Blood is now just ready for pt. She just went to bathroom 1 hour ago and had a bloody bowel movement. RN Lovely instructed To go ahead and initiate the transfusion. 12/27/21 17:21 Patient remains in the emergency department awaiting transfer. Vital signs have been stable and she has tolerated her transfusion well.
[2021-12-27] MEDS: PANTOPRAZOLE 40 MG VIAL IVP SCH ×2 (09:13→22:15)
[2021-12-27 12:24] LABS: HCT - HEMATOCRIT 23.5 % (37.0-47.0); HGB - HEMOGLOBIN 7.5 g/dL (12.0-16.0)
[2021-12-27 18:50] LABS: HCT - HEMATOCRIT 27.2 % (37.0-47.0); HGB - HEMOGLOBIN 8.6 g/dL (12.0-16.0)
--- NOTE | 2021-12-27 19:22 | ED Physician Documentation ---
ED Addendum - Addendum Addendum: 12/27/21 19:21 Took call from [facility]. It looks like they will have a bed for her tonight. I presented the case to MARI Martínez who will see in consult and defers to medicine for admission. They will call back with the hospitalist. 12/27/21 19:31 Subsequently she was accepted to [facility] by Dr. Ho at this time. Cobras are completed and she is stable for transfer. Diagnosis: 1. Acute blood loss anemia 2. Upper GI bleed Disposition transferred to [facility] for higher level of care Condition: Stable but guarded
[2021-12-27 22:42] VITALS: BP 103/51
== END 2021-12-27 22:55 | disposition short-term general hospital (02) ==
LOC: ED 13:01
DX: D62 Acute posthemorrhagic anemia (principal); K92.2 Gastrointestinal hemorrhage, unspecified; I10 Essential (primary) hypertension; I48.91 Unspecified atrial fibrillation; F41.9 Anxiety disorder, unspecified; Z66 Do not resuscitate; Z20.822 Contact with and (suspected) exposure to COVID-19
CPT/HCPCS: 36415; 36430; 74176; 80053; 82272; 83690; 85014; 85018; 85025; 85610; 86850; 86900; 86901; 86920; 87635; 96374; 96375; 96376; 99283; 99285; J7120; P9016

== ENCOUNTER 2021-12-27 22:58 | Outpatient (CLI) | payer MEDICARE, OTHER | END 2021-12-27 22:59 | disposition short-term general hospital (02) | LOC: EMS 22:58 | PROVIDERS: ATTEND Emergency Medicine | DX: K92.2 Gastrointestinal hemorrhage, unspecified (principal) | CPT/HCPCS: A0425; A0426 ==

== ENCOUNTER 2022-01-02 13:11 | Outpatient (CLI) | payer MEDICARE, OTHER ==
[2022-01-02 13:29] LABS: BASOPHILS # (AUTO) 0.1 10^3/uL (0.0-0.1); BASOPHILS % (AUTO) 0.6 %; EOSINOPHILS # (AUTO) 0.1 10^3/uL (0.0-0.7); EOSINOPHILS % (AUTO) 0.9 %; HCT - HEMATOCRIT 30.2 % (37.0-47.0); HGB - HEMOGLOBIN 9.7 g/dL (12.0-16.0); LYMPHOCYTES # (AUTO) 0.8 10^3/uL (1.5-3.5); LYMPHOCYTES % (AUTO) 7.5 %; MEAN CORPUSCULAR HEMOGLOBIN 31.4 pg (27.0-31.0); MEAN CORPUSCULAR HGB CONC 32.1 g/dL (32.0-36.0); MEAN CORPUSCULAR VOLUME 97.7 fL (81.0-99.0); MEAN PLATELET VOLUME 10.6 fL (7.9-10.8); MONOCYTES # (AUTO) 1.4 10^3/uL (0.0-1.0); MONOCYTES % (AUTO) 12.8 %; NEUTROPHILS # (AUTO) 8.2 10^3/uL (1.5-6.6); NEUTROPHILS % (AUTO) 77.6 %; NRBC ABSOLUTE COUNT (AUTO) 0.03 x10^3/uL; NUCLEATED RED BLOOD CELLS AUTO 0.3 /100WBC; PLT - PLATELET COUNT 236 10^3/uL (130-450); RED BLOOD COUNT 3.09 10^6/uL (4.20-5.40); WHITE BLOOD COUNT 10.5 x10^3/uL (4.8-10.8)
== END 2022-01-02 13:12 | disposition home or self-care (01) ==
LOC: LAB 13:11
DX: I85.00 Esophageal varices without bleeding (principal)
CPT/HCPCS: 36415; 85025

== ENCOUNTER 2022-02-19 10:18 | Outpatient (CLI) | payer MEDICARE, OTHER | END 2022-02-19 10:19 | disposition home or self-care (01) | LOC: DI 10:18 | PROVIDERS: ATTEND Internal Medicine Cardiovascular Disease | DX: I50.9 Heart failure, unspecified (principal); I35.2 Nonrheumatic aortic (valve) stenosis with insufficiency; I51.7 Cardiomegaly | CPT/HCPCS: 93306 ==

== ENCOUNTER 2022-02-25 08:56 | Outpatient (CLI) | payer MEDICARE, OTHER ==
[2022-02-25 09:27] LABS: BASOPHILS % (AUTO) 1.2 %; EOSINOPHILS # (AUTO) 0.1 10^3/uL (0.0-0.7); EOSINOPHILS % (AUTO) 2.8 %; HGB - HEMOGLOBIN 11.8 g/dL (12.0-16.0); LYMPHOCYTES # (AUTO) 0.6 10^3/uL (1.5-3.5); LYMPHOCYTES % (AUTO) 18.8 %; MEAN CORPUSCULAR HEMOGLOBIN 28.6 pg (27.0-31.0); MEAN CORPUSCULAR HGB CONC 31.9 g/dL (32.0-36.0); MEAN CORPUSCULAR VOLUME 89.6 fL (81.0-99.0); MEAN PLATELET VOLUME 9.6 fL (7.9-10.8); MONOCYTES # (AUTO) 0.6 10^3/uL (0.0-1.0); MONOCYTES % (AUTO) 17.5 %; NEUTROPHILS # (AUTO) 1.9 10^3/uL (1.5-6.6); NEUTROPHILS % (AUTO) 59.4 %; PLT - PLATELET COUNT 151 10^3/uL (130-450); RED BLOOD COUNT 4.13 10^6/uL (4.20-5.40); RED CELL DISTRIBUTION WIDTH 14.9 % (12.0-15.0); WHITE BLOOD COUNT 3.3 x10^3/uL (4.8-10.8)
[2022-02-25 09:59] LABS: ALBUMIN 3.3 g/dL (3.2-5.5); ALBUMIN/GLOBULIN RATIO 0.7 (1.0-2.2); BILIRUBIN,TOTAL 0.8 mg/dL (0.2-1.0); CALCIUM 8.9 mg/dL (8.5-10.3); CREATININE 0.5 mg/dL (0.4-1.0); PHOSPHORUS 2.7 mg/dL (2.5-4.6); POTASSIUM 3.6 mmol/L (3.5-5.0)
[2022-02-25 10:13] LABS: FERRITIN 31.8 ng/mL (11.0-306.8)
[2022-02-25 10:16] LABS: FOLATE 7.53 ng/mL (5.90 - >24.8)
[2022-02-25 10:23] LABS: PT - PROTHROMBIN TIME 11.3 secs (9.9-12.6)
== END 2022-02-25 08:57 | disposition home or self-care (01) ==
LOC: LAB 08:56
PROVIDERS: ATTEND Internal Medicine Cardiovascular Disease
DX: I50.9 Heart failure, unspecified (principal); D53.9 Nutritional anemia, unspecified; K74.3 Primary biliary cirrhosis
CPT/HCPCS: 36415; 80053; 80069; 82607; 82728; 82746; 83540; 83880; 84466; 85025; 85610

== ENCOUNTER 2022-03-04 10:06 | Outpatient (CLI) | payer MEDICARE, OTHER ==
--- NOTE | 2022-03-04 22:48 | Ultrasound Report ---
PROCEDURE: Abdomen Complete INDICATIONS: BILIARY CHOLANGITIS TECHNIQUE: Real-time scanning was performed of the abdominal and retroperitoneal organs, with image documentatio n. COMPARISON: CT abdomen 12/26/2021 FINDINGS: Liver: Liver is mildly prominent measuring 16.7 cm with steatosis. Nodularity is noted. Gallbladder: No stones are identified. There is an appearance of pericholecystic fluid as well as per ihepatic fluid. Wall measures 2.1 mm. Biliary ducts: Intrahepatic bile ducts are non-dilated. Extrahepatic bile duct caliber measures 4.1 mm. Normal is 6-7 mm or less in diameter, or 10 mm or less post-cholecystectomy. Pancreas: Visualized portions of the pancreas are sonographically normal. Spleen: Spleen is normal in size and homogeneous in echotexture. Kidneys: Kidneys are normal in size and echotexture. Right kidney measures 10.7 cm long; left kidne y measures 11.2 cm long. No hydronephrosis or nephrolithiasis. No solid masses. Simple right renal cyst is present measuring 2.3 x 2.4 x 2.2 cm. Aorta: Visualized aorta is normal in caliber at less than 3 cm. Iliacs: Proximal common iliac arteries are normal in caliber at less than 2.5 cm. IVC: Intrahepatic inferior vena cava is patent. Miscellaneous: Mild to moderate ascites. IMPRESSION: Mild to moderate ascites with suggestion of cirrhosis. Pericholecystic fluid versus abdominal ascites. This could be secondary to liver disease. No stones a re identified. Reviewed by: Dana Oneill MD on 03/04/2022 10:46 PM PDT Approved by: Dana Oneill MD on 03/04/2022 10:46 PM PDT Station ID: [id number]
== END 2022-03-04 10:07 | disposition home or self-care (01) ==
LOC: DI 10:06
DX: K74.3 Primary biliary cirrhosis (principal)

== ENCOUNTER 2022-03-16 13:16 | Outpatient (CLI) | payer MEDICARE, OTHER ==
[2022-03-16 13:43] LABS: BASOPHILS % (AUTO) 0.8 %; EOSINOPHILS # (AUTO) 0.1 10^3/uL (0.0-0.7); EOSINOPHILS % (AUTO) 2.2 %; HCT - HEMATOCRIT 39.1 % (37.0-47.0); HGB - HEMOGLOBIN 12.4 g/dL (12.0-16.0); LYMPHOCYTES # (AUTO) 0.8 10^3/uL (1.5-3.5); MEAN CORPUSCULAR HEMOGLOBIN 29.5 pg (27.0-31.0); MEAN CORPUSCULAR HGB CONC 31.7 g/dL (32.0-36.0); MEAN CORPUSCULAR VOLUME 92.9 fL (81.0-99.0); MEAN PLATELET VOLUME 10.3 fL (7.9-10.8); MONOCYTES # (AUTO) 0.7 10^3/uL (0.0-1.0); MONOCYTES % (AUTO) 13.7 %; NEUTROPHILS # (AUTO) 3.3 10^3/uL (1.5-6.6); NEUTROPHILS % (AUTO) 67.1 %; PLT - PLATELET COUNT 158 10^3/uL (130-450); RED BLOOD COUNT 4.21 10^6/uL (4.20-5.40); RED CELL DISTRIBUTION WIDTH 17.2 % (12.0-15.0)
== END 2022-03-16 13:17 | disposition home or self-care (01) ==
LOC: LAB 13:16
PROVIDERS: ATTEND Internal Medicine
DX: I85.00 Esophageal varices without bleeding (principal)
CPT/HCPCS: 36415; 85025

== ENCOUNTER 2022-03-30 10:57 | Outpatient (CLI) | payer MEDICARE, OTHER ==
--- NOTE | 2022-03-30 15:54 | XRAY Report ---
PROCEDURE: Chest 2 View X-Ray INDICATIONS: LUMBAR PAIN, THORACIC PAIN, RIGHT SIDED BACK PAIN TECHNIQUE: 2 view chest. COMPARISON: CT abdomen pelvis, 12/26/2021. FINDINGS: No pulmonary infiltrate or consolidation. Left basilar opacities are most likely scars and atelectasis. Blunting of costophrenic angles bilaterally, likely secondary to pleural thickening/scarring. The car diac silhouette is normal. IMPRESSION: 1. No acute cardiopulmonary disease. 2. Left basilar scars and atelectasis. Reviewed by: Jimenez Parsons MD on 03/30/2022 3:52 PM PDT Approved by: Jimenez Parsons MD on 03/30/2022 3:52 PM PDT Station ID: [id number]
--- NOTE | 2022-03-30 16:10 | XRAY Report ---
PROCEDURE: Lumbar Spine 2 View INDICATIONS: LUMBAR PAIN, THORACIC PAIN, RIGHT SIDED BACK PAIN TECHNIQUE: 3 views of the lumbar spine were acquired. COMPARISON: X-ray thoracic spine, 03/30/2010 22. FINDINGS: Bones: Based the x-ray of the thoracic spine, there are 12-pairs of fully formed ribs. There is a [place] imentary right rib at the level below T12, which is referred as L1 in this report. There is prominen t S1-S2 disc. There is grade 1 anterolisthesis of L5 on S1. Mild L5 vertebral body compression fractu re is present. No suspicious bony lesions. Mild degenerative disc disease throughout the lumbar spi ne. Moderate facet arthropathy at L4-L5, L5-S1 and S1-S2. Soft tissues: Overlying bowel gas pattern is normal. Severe atherosclerotic calcifications. IMPRESSION: 1. Transitional anatomy. Please see the body of report for detail. 2. Mild compression fracture of L5. 3. Degenerative disc and facet disease in lumbar spine. 4. Severe atherosclerosis. Reviewed by: Jimenez Parsons MD on 03/30/2022 4:09 PM PDT Approved by: Jimenez Parsons MD on 03/30/2022 4:09 PM PDT Station ID: [id number]
--- NOTE | 2022-03-30 16:32 | XRAY Report ---
PROCEDURE: Thoracic Spine 2 View INDICATIONS: LUMBAR PAIN, THORACIC PAIN, RIGHT SIDED BACK PAIN TECHNIQUE: 3 views of the thoracic spine were acquired. COMPARISON: CT abdomen and pelvis, 12/26/2021. FINDINGS: Bones: Moderate compression fracture of T12, new since 12/26/2021. No suspicious bony lesions. Genera lized osteopenia. 12 pairs of ribs are noted, and appear intact where visualized. Soft tissues: No paravertebral stripe thickening. IMPRESSION: Moderate compression fracture of T12. The fracture is new since 12/26/2021. If clinically indicated, M RI would be helpful. Reviewed by: Jimenez Parsons MD on 03/30/2022 4:31 PM PDT Approved by: Jimenez Parsons MD on 03/30/2022 4:31 PM PDT Station ID: [id number]
== END 2022-03-30 10:58 | disposition home or self-care (01) ==
LOC: DI.S 10:57
PROVIDERS: ATTEND Physician Assistant Medical
DX: M47.816 Spondylosis without myelopathy or radiculopathy, lumbar region (principal); M47.817 Spondylosis without myelopathy or radiculopathy, lumbosacral region; M51.36 Other intervertebral disc degeneration, lumbar region; M48.56XA Collapsed vertebra, not elsewhere classified, lumbar region, initial encounter for fracture; I70.90 Unspecified atherosclerosis; M48.54XA Collapsed vertebra, not elsewhere classified, thoracic region, initial encounter for fracture; J98.11 Atelectasis; J98.4 Other disorders of lung

== ENCOUNTER 2022-05-12 10:49 | Outpatient (CLI) | payer MEDICARE, OTHER ==
[2022-05-12 11:15] LABS: CALCIUM 10.4 mg/dL (8.5-10.3); CREATININE 0.9 mg/dL (0.4-1.0); POTASSIUM 4.6 mmol/L (3.5-5.0)
== END 2022-05-12 10:50 | disposition home or self-care (01) ==
LOC: LAB 10:49
PROVIDERS: ATTEND Internal Medicine Gastroenterology
DX: K74.5 Biliary cirrhosis, unspecified (principal)
CPT/HCPCS: 36415; 80048

== ENCOUNTER 2022-06-25 10:46 | Outpatient (CLI) | payer MEDICARE, OTHER ==
[2022-06-25 11:06] LABS: BASOPHILS % (AUTO) 0.7 %; EOSINOPHILS # (AUTO) 0.1 10^3/uL (0.0-0.7); EOSINOPHILS % (AUTO) 2.6 %; HCT - HEMATOCRIT 43.9 % (37.0-47.0); LYMPHOCYTES # (AUTO) 0.8 10^3/uL (1.5-3.5); LYMPHOCYTES % (AUTO) 14.2 %; MEAN CORPUSCULAR HEMOGLOBIN 31.1 pg (27.0-31.0); MEAN CORPUSCULAR HGB CONC 31.9 g/dL (32.0-36.0); MEAN CORPUSCULAR VOLUME 97.6 fL (81.0-99.0); MEAN PLATELET VOLUME 10.8 fL (7.9-10.8); MONOCYTES # (AUTO) 0.9 10^3/uL (0.0-1.0); MONOCYTES % (AUTO) 15.7 %; NEUTROPHILS # (AUTO) 3.7 10^3/uL (1.5-6.6); NEUTROPHILS % (AUTO) 66.6 %; PLT - PLATELET COUNT 116 10^3/uL (130-450); RED CELL DISTRIBUTION WIDTH 14.5 % (12.0-15.0); WHITE BLOOD COUNT 5.5 x10^3/uL (4.8-10.8)
[2022-06-25 11:22] LABS: ALBUMIN 3.5 g/dL (3.2-5.5); BILIRUBIN,DIRECT 0.1 mg/dL (0.1-0.5); BILIRUBIN,TOTAL 0.8 mg/dL (0.2-1.0); CALCIUM 9.4 mg/dL (8.5-10.3); POTASSIUM 5.6 mmol/L (3.5-5.0); TOTAL PROTEIN 7.9 g/dL (6.7-8.2)
== END 2022-06-25 10:47 | disposition home or self-care (01) ==
LOC: LAB 10:46
PROVIDERS: ATTEND Internal Medicine Gastroenterology
DX: K74.5 Biliary cirrhosis, unspecified (principal)
CPT/HCPCS: 36415; 80048; 80076; 82977; 85025

== ENCOUNTER 2022-08-04 10:27 | Outpatient (CLI) | payer MEDICARE, OTHER ==
[2022-08-04 10:57] LABS: BASOPHILS % (AUTO) 0.9 %; EOSINOPHILS # (AUTO) 0.1 10^3/uL (0.0-0.7); EOSINOPHILS % (AUTO) 2.6 %; HCT - HEMATOCRIT 39.7 % (37.0-47.0); HGB - HEMOGLOBIN 12.5 g/dL (12.0-16.0); LYMPHOCYTES # (AUTO) 0.6 10^3/uL (1.5-3.5); LYMPHOCYTES % (AUTO) 13.6 %; MEAN CORPUSCULAR HGB CONC 31.5 g/dL (32.0-36.0); MEAN CORPUSCULAR VOLUME 101.5 fL (81.0-99.0); MEAN PLATELET VOLUME 11.4 fL (7.9-10.8); MONOCYTES # (AUTO) 0.7 10^3/uL (0.0-1.0); MONOCYTES % (AUTO) 15.2 %; NEUTROPHILS # (AUTO) 2.9 10^3/uL (1.5-6.6); NEUTROPHILS % (AUTO) 67.5 %; PLT - PLATELET COUNT 103 10^3/uL (130-450); RED BLOOD COUNT 3.91 10^6/uL (4.20-5.40); RED CELL DISTRIBUTION WIDTH 14.6 % (12.0-15.0); WHITE BLOOD COUNT 4.3 x10^3/uL (4.8-10.8)
[2022-08-04 11:02] LABS: PT - PROTHROMBIN TIME 10.8 secs (9.9-12.6)
[2022-08-04 11:15] LABS: ALBUMIN 3.4 g/dL (3.2-5.5); BILIRUBIN,DIRECT 0.1 mg/dL (0.1-0.5); BILIRUBIN,TOTAL 0.8 mg/dL (0.2-1.0); CALCIUM 9.7 mg/dL (8.5-10.3); CREATININE 0.9 mg/dL (0.4-1.0); TOTAL PROTEIN 7.6 g/dL (6.7-8.2)
== END 2022-08-04 10:28 | disposition home or self-care (01) ==
LOC: LAB 10:27
PROVIDERS: ATTEND Internal Medicine Gastroenterology
DX: K74.5 Biliary cirrhosis, unspecified (principal); R93.2 Abnormal findings on diagnostic imaging of liver and biliary tract; M81.0 Age-related osteoporosis without current pathological fracture
CPT/HCPCS: 36415; 80048; 80076; 82105; 83970; 85025; 85610

== ENCOUNTER 2022-08-04 10:28 | Outpatient (CLI) | payer MEDICARE, OTHER ==
--- NOTE | 2022-08-04 14:15 | Ultrasound Report ---
PROCEDURE: Abdomen Limited INDICATIONS: BILIARY CIRRHOSIS TECHNIQUE: Real-time focused scanning was performed of the abdomen, with image documentation. COMPARISON: Abdominal ultrasound dated 03/04/2022, CT abdomen and pelvis without contrast dated 2021 FINDINGS: Heterogeneous echotexture of the liver with nodular surface consistent with cirrhotic rios ge. No focal liver mass. Gallbladder is unremarkable without stones or wall thickening. No biliary ductal dilatation. Common bile duct measures 3.9 mm. Common hepatic duct measures 2.9 mm. Visualized portions of the pancreas are unremarkable. Right kidney is normal in size. There is mild right hydronephrosis. IMPRESSION: 1. Cirrhotic changes in the liver. No focal liver mass. 2. Development of mild right hydronephrosis. Comment: Consider CT abdomen and pelvis to evaluate the right hydronephrosis. Consider utilizing intr avenous contrast, possible. Reviewed by: Jasvir Clemons MD on 08/04/2022 2:14 PM PST Approved by: Jasvir Clemons MD on 08/04/2022 2:14 PM PST Station ID: [id number]
== END 2022-08-04 10:29 | disposition home or self-care (01) ==
LOC: DI 10:28
PROVIDERS: ATTEND Internal Medicine Gastroenterology
DX: K74.5 Biliary cirrhosis, unspecified (principal); K74.60 Unspecified cirrhosis of liver; N13.30 Unspecified hydronephrosis; R93.2 Abnormal findings on diagnostic imaging of liver and biliary tract; M81.0 Age-related osteoporosis without current pathological fracture
CPT/HCPCS: 36415; 80048; 80076; 82105; 83970; 85025; 85610

== ENCOUNTER 2022-08-25 13:53 | Outpatient (CLI) | payer MEDICARE, OTHER | END 2022-08-25 13:54 | disposition home or self-care (01) | LOC: LAB 13:53 | PROVIDERS: ATTEND Student in an Organized Health Care Education/Training Program | DX: M81.0 Age-related osteoporosis without current pathological fracture (principal) | CPT/HCPCS: 36415; 82310 ==

== ENCOUNTER 2022-09-17 12:23 | Outpatient (CLI) | payer MEDICARE, OTHER ==
[2022-09-17] MEDS ORDERED: iohexoL-300 100 ML VIAL ONE (12:55)
[2022-09-17 13:41] LABS: CREATININE 0.8 mg/dL (0.4-1.0)
[2022-09-17] MEDS ORDERED: iohexoL-300 100 ML VIAL IVP ONE (14:00)
--- NOTE | 2022-09-18 07:08 | CT Report ---
PROCEDURE: IVP INDICATIONS: HYDRONEPHROSIS CONTRAST: 140ml Omnipaque 300 TECHNIQUE: After the administration of intravenous contrast, 5 mm thick sections acquired from the diaphragms to the symphysis. 5 mm thick coronal and sagittal reformats were acquired. For radiation dose reducti on, the following was used: automated exposure control, adjustment of mA and/or kV according to sarai ent size. COMPARISON: 12/26/2021 FINDINGS: Image quality: Good Lower chest: Basal scarring/atelectasis. Mitral annular and coronary calcifications. Normal heart siz e overall. Solid organs: Eventration of the right hemidiaphragm. Similar prominent fissure in the middle of the right lobe. The liver is otherwise unremarkable. The gallbladder is unremarkable. No pathologic dilat ion of the biliary tree or pancreatic duct. Calcifications again seen around the hepatic hilum. No sp lenomegaly. No pathologic dilation of the biliary tree or pancreatic duct. No adrenal nodules. Aggregate of renal calcified stones in the left lower pole is similar to prior, measuring in aggregat e 8 x 5 mm. Bosniak 1 and 2 renal lesions are present, for which no dedicated follow-up is necessary per 2019 proposed guidelines. Bilateral renal pelviectasis without ureteral dilation or obstructing m ass/stone identified. Unremarkable appearance of the bladder. Bilateral ureteral jets are seen. Vessels and lymph nodes: Moderate atherosclerotic disease. The main portal vein is patent. No patholo gic adenopathy by size criteria. Bowel and peritoneum: No bowel obstruction. No pathologic ascites. Mild fat stranding is seen around the rectum and distal colon, along with extensive distal colon diverticula and mild wall thickening. Body wall: Unremarkable. Pelvis: Reproductive organs are not well evaluated on CT. There may be endometrial thickening measuri ng up to 10 to 11 mm. Bones: Rim-enhancing fluid is seen adjacent to the lesser trochanter of the left femur, measuring abo ut 5.9 x 4.4 cm in aggregate (). There is scattered degenerative changes. No acute or suspicious abnormality. Some rib fractures may not be acute. IMPRESSION: Similar aggregate of nonobstructing calculi in the left lower pole compared to December 2021. Mild bilate ral pelviectasis without significant hydronephrosis. No ureter obstruction identified. No discrete bl adder mass or stones. Lower tract disease could be better evaluated with cystoscopy. No actionable re nal mass identified. Mild fat stranding around the distal colon and rectum, possibly related to proctocolitis, correlate w ith any symptoms. There is also suspected chronic diverticular disease of the distal colon, for which correlation with colonoscopy is recommended. Possible endometrial thickening, correlate with any symptoms of postmenopausal bleeding. Consider kenneth pling if necessary. Further imaging could be obtained with ultrasound. Incidentally noted rim-enhancing fluid collection adjacent to the left lesser trochanter, with indete rminate sterility. Correlate with symptoms. CT reference image . Other incidental and likely stable findings as above. Reviewed by: Faustino Browning MD on 09/17/2022 4:30 PM PDT Approved by: Faustino Browning MD on 09/17/2022 4:30 PM PDT Station ID: [id number]
== END 2022-09-17 12:24 | disposition home or self-care (01) ==
LOC: LAB 12:23
PROVIDERS: ATTEND Internal Medicine Gastroenterology
DX: N13.30 Unspecified hydronephrosis (principal); N20.0 Calculus of kidney
CPT/HCPCS: 36415; 74178; 82565; Q9967

== ENCOUNTER 2022-12-27 13:56 | Outpatient (CLI) | payer MEDICARE, OTHER ==
--- NOTE | 2022-12-27 14:56 | Ultrasound Report ---
PROCEDURE: Pelvic Limited or F/U INDICATIONS: LOWER QUAD ABD SWELLING TECHNIQUE: Real-time transabdominal scanning was performed of the pelvis, with image documentation. COMPARISON: None. FINDINGS: Focused ultrasound examination in left lower quadrant abdomen at patient's reported area of palpable lump shows anterior abdominal wall defect measures 1.7 cm in width peristalsing bowel loops are noted within the herniation sac and does not reduce with Valsalva. IMPRESSION: Nonreducible left ventral hernia containing parasellar seen bowel loops as above. Reviewed by: Dain Lawrence MD on 12/27/2022 2:55 PM PDT Approved by: Dain Lawrence MD on 12/27/2022 2:55 PM PDT Station ID: [id number]
== END 2022-12-27 13:57 | disposition home or self-care (01) ==
LOC: DI 13:56
PROVIDERS: ATTEND Internal Medicine
DX: K43.9 Ventral hernia without obstruction or gangrene (principal); G71.09 Other specified muscular dystrophies

== ENCOUNTER 2023-05-12 09:39 | Outpatient (CLI) | payer MEDICARE, OTHER ==
[2023-05-12 14:46] LABS: EOSINOPHILS # (AUTO) 0.1 10^3/uL (0.0-0.7); EOSINOPHILS % (AUTO) 2.9 %; HCT - HEMATOCRIT 33.7 % (37.0-47.0); LYMPHOCYTES # (AUTO) 0.7 10^3/uL (1.5-3.5); LYMPHOCYTES % (AUTO) 15.6 %; MEAN CORPUSCULAR HEMOGLOBIN 28.2 pg (27.0-31.0); MEAN CORPUSCULAR HGB CONC 29.7 g/dL (32.0-36.0); MEAN CORPUSCULAR VOLUME 95.2 fL (81.0-99.0); MEAN PLATELET VOLUME 11.8 fL (7.9-10.8); MONOCYTES # (AUTO) 0.7 10^3/uL (0.0-1.0); MONOCYTES % (AUTO) 15.6 %; NEUTROPHILS # (AUTO) 2.7 10^3/uL (1.5-6.6); NEUTROPHILS % (AUTO) 64.7 %; PLT - PLATELET COUNT 124 10^3/uL (130-450); RED BLOOD COUNT 3.54 10^6/uL (4.20-5.40); RED CELL DISTRIBUTION WIDTH 17.2 % (12.0-15.0); WHITE BLOOD COUNT 4.2 x10^3/uL (4.8-10.8)
[2023-05-12 15:33] LABS: ALBUMIN 3.4 g/dL (3.2-5.5); ALBUMIN/GLOBULIN RATIO 0.9 (1.0-2.2); BILIRUBIN,TOTAL 0.4 mg/dL (0.2-1.0); CALCIUM 9.6 mg/dL (8.5-10.3); CREATININE 1.3 mg/dL (0.6-1.3); POTASSIUM 4.5 mmol/L (3.5-4.5)
[2023-05-13 08:09] LABS: VITAMIN D 25-HYDROXY 57.1 ng/mL (30.0-100.0)
== END 2023-05-12 09:40 | disposition home or self-care (01) ==
LOC: LAB.S 09:39
PROVIDERS: ATTEND Internal Medicine
DX: G93.40 Encephalopathy, unspecified (principal); K74.5 Biliary cirrhosis, unspecified; E83.52 Hypercalcemia
CPT/HCPCS: 36415; 80053; 82306; 82330; 85025

== ENCOUNTER 2023-05-27 08:00 | Outpatient (CLI) | payer MEDICARE, OTHER ==
[2023-05-27 15:20] LABS: BASOPHILS % (AUTO) 1.6 %; EOSINOPHILS % (AUTO) 3.2 %; HCT - HEMATOCRIT 32.9 % (37.0-47.0); LYMPHOCYTES % (AUTO) 16.1 %; MEAN CORPUSCULAR HEMOGLOBIN 29.2 pg (27.0-31.0); MEAN CORPUSCULAR HGB CONC 30.4 g/dL (32.0-36.0); MEAN CORPUSCULAR VOLUME 96.2 fL (81.0-99.0); MEAN PLATELET VOLUME 12.1 fL (7.9-10.8); MONOCYTES % (AUTO) 10.1 %; NEUTROPHILS % (AUTO) 68.6 %; PLT - PLATELET COUNT 120 10^3/uL (130-450); RED BLOOD COUNT 3.42 10^6/uL (4.20-5.40); RED CELL DISTRIBUTION WIDTH 20.1 % (12.0-15.0); WHITE BLOOD COUNT 2.5 x10^3/uL (4.8-10.8)
[2023-05-27 15:41] LABS: ALBUMIN 3.6 g/dL (3.2-5.5); ALBUMIN/GLOBULIN RATIO 0.9 (1.0-2.2); BILIRUBIN,TOTAL 0.4 mg/dL (0.2-1.0); CALCIUM 9.4 mg/dL (8.5-10.3); CREATININE 1.4 mg/dL (0.6-1.3); POTASSIUM 5.5 mmol/L (3.5-4.5); TOTAL PROTEIN 7.4 g/dL (6.4-8.9)
[2023-05-27 15:48] LABS: ABNORMAL LYMPHS % (MANUAL) 0 %; BAND NEUTROPHILS % (MANUAL) 0 %
[2023-05-27 16:19] LABS: EOSINOPHILS # (MANUAL) 0.1 10^3/uL (0-0.7); LYMPHOCYTES # (MANUAL) 0.5 10^3/uL (1.5-3.5); LYMPHOCYTES % (MANUAL) 20 %; MONOCYTES # (MANUAL) 0.2 10^3/uL (0.0-1.0); NEUTROPHILS # (MANUAL) 1.7 10^3/uL (1.5-6.6)
[2023-05-27 16:37] LABS: PLATELET ESTIMATE, MANUAL DECREASED (<130,000) (NORMAL); PLATELET MORPHOLOGY NORMAL APPEARANCE (NORMAL)
[2023-05-27 16:38] LABS: DIFFERENTIAL COMMENT MANUAL DIFFERENTIAL
[2023-05-27 17:22] LABS: FERRITIN 44.2 ng/mL (11.0-306.8)
[2023-05-28 17:08] LABS: CALCIUM IONIZED SERUM 4.7 mg/dL (4.5-5.6)
[2023-05-30 12:08] LABS: VITAMIN D 25-HYDROXY 56.1 ng/mL (30.0-100.0)
== END 2023-05-27 23:59 | disposition home or self-care (01) ==
LOC: LAB.R 08:00
PROVIDERS: ATTEND Internal Medicine
DX: E83.52 Hypercalcemia (principal); N18.9 Chronic kidney disease, unspecified
CPT/HCPCS: 80053; 82306; 82330; 82728; 83540; 84466; 85025

== ENCOUNTER 2023-06-17 08:00 | Outpatient (CLI) | payer MEDICARE, OTHER ==
[2023-06-17 18:51] LABS: ALBUMIN 3.9 g/dL (3.2-5.5)
[2023-06-17 19:31] LABS: ALBUMIN/GLOBULIN RATIO 0.9 (1.0-2.2); BILIRUBIN,TOTAL 0.5 mg/dL (0.2-1.0); CALCIUM 9.7 mg/dL (8.5-10.3); CREATININE 1.5 mg/dL (0.6-1.3); POTASSIUM 6.2 mmol/L (3.5-4.5); TOTAL PROTEIN 8.3 g/dL (6.4-8.9)
== END 2023-06-17 23:59 | disposition home or self-care (01) ==
LOC: LAB 08:00
PROVIDERS: ATTEND Internal Medicine Gastroenterology
DX: K74.3 Primary biliary cirrhosis (principal); E83.52 Hypercalcemia; R93.2 Abnormal findings on diagnostic imaging of liver and biliary tract
CPT/HCPCS: 36415; 80053

== ENCOUNTER 2023-06-17 18:14 | Outpatient (CLI) | payer MEDICARE, OTHER ==
[2023-06-17 16:06] LABS: ALBUMIN 3.9 g/dL (3.2-5.5)
[2023-06-17 16:22] LABS: ALBUMIN/GLOBULIN RATIO 0.9 (1.0-2.2); BILIRUBIN,TOTAL 0.5 mg/dL (0.2-1.0); CALCIUM 9.6 mg/dL (8.5-10.3); CREATININE 1.5 mg/dL (0.6-1.3); POTASSIUM 7.3 mmol/L (3.5-4.5); TOTAL PROTEIN 8.2 g/dL (6.4-8.9)
== END 2023-06-17 18:15 | disposition home or self-care (01) ==
LOC: LAB.R 18:14
PROVIDERS: ATTEND Internal Medicine
DX: E83.52 Hypercalcemia (principal)
CPT/HCPCS: 80053

== ENCOUNTER 2023-06-21 10:00 | Outpatient (CLI) | payer MEDICARE, OTHER ==
[2023-06-21 17:18] LABS: ALBUMIN 3.9 g/dL (3.2-5.5); BILIRUBIN,TOTAL 0.5 mg/dL (0.2-1.0); CALCIUM 9.3 mg/dL (8.5-10.3); CREATININE 1.3 mg/dL (0.6-1.3); PHOSPHORUS 3.1 mg/dL (2.5-5.0); POTASSIUM 4.8 mmol/L (3.5-4.5); TOTAL PROTEIN 7.8 g/dL (6.4-8.9)
== END 2023-06-21 10:01 | disposition home or self-care (01) ==
LOC: LAB.S 10:00
PROVIDERS: ATTEND Internal Medicine
DX: E83.52 Hypercalcemia (principal); N18.9 Chronic kidney disease, unspecified
CPT/HCPCS: 36415; 80053; 82043; 82570; 84100

== ENCOUNTER 2023-07-09 12:51 | Outpatient (CLI) | payer MEDICARE, OTHER ==
[2023-07-09 20:37] LABS: ALBUMIN 3.6 g/dL (3.2-5.5); ALBUMIN/GLOBULIN RATIO 0.9 (1.0-2.2); BILIRUBIN,TOTAL 0.9 mg/dL (0.2-1.0); CALCIUM 8.9 mg/dL (8.5-10.3); CREATININE 0.8 mg/dL (0.6-1.3); POTASSIUM 2.5 mmol/L (3.5-4.5); TOTAL PROTEIN 7.5 g/dL (6.4-8.9)
== END 2023-07-09 12:52 | disposition home or self-care (01) ==
LOC: LAB.S 12:51
PROVIDERS: ATTEND Internal Medicine
DX: N18.9 Chronic kidney disease, unspecified (principal); E83.52 Hypercalcemia; K74.60 Unspecified cirrhosis of liver
CPT/HCPCS: 36415; 80053; 81599

== ENCOUNTER 2023-07-09 21:56 | Observation (INO) | payer MEDICARE, OTHER ==
--- NOTE | 2023-07-09 22:47 | ED Physician Documentation ---
History of Present Illness - Stated complaint Stated Complaint: LOW POTASSIUM - Chief complaint Chief Complaint: General - History obtained from History obtained from: Patient - Additonal information Additional information: HPI from patient. Patient had outpatient lab tests today, and she was contacted by her PCP this evening and advised to go to the emergency department for evaluation of a low potassium level found on those tests. Patient says that she recently had been having high potassium levels although etiology had not been determined. Approximately 1 month ago, she was told to discontinue her spironolactone and enalapril. Due to high blood pressure readings subsequent to discontinuation of these medications, she was started on amlodipine yesterday (has taken 1 dose yesterday and another dose today). Patient says she was "dealing with hypercalcemia" this past April; she says she was inpatient at [facility] for hypercalcemia but extensive testing did not reveal an etiology. Regarding symptoms, patient says she feels nothing unusual tonight. She says she has generalized weakness at her baseline due to muscular dystrophy; she is noting mildly increased generalized weakness over the past "week or 2". Denies chest pain, shortness of breath, palpitations, visual changes. 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 : Kidney stones HEENT: None Psych: Depression, Anxiety Musculoskeletal: Chronic back pain, Other Derm: None Other Past Medical History: Muscular Dystrophy (FSHD) - Past Surgical History Past Surgical History: Yes General: Colonoscopy, EGD, Other Ortho: Other - Present Medications Home Medications: Ambulatory Orders Medication Instructions Recorded Confirmed Amlodipine Besylate [Norvasc] 1 - 2 tab PO DAILY 07/09/23 07/09/23 Denosumab [Prolia] 60 mg SUBQ ONCE 07/09/23 07/09/23 Docusate Sodium 100Mg Capsule 100 mg PO DAILY 07/09/23 07/09/23 [Colace 100Mg Capsule] Ferrous Sulfate 325 mg PO DAILY 07/09/23 07/09/23 Furosemide [Lasix] 40 mg PO DAILY 07/09/23 07/09/23 Gabapentin [Neurontin] 100 - 200 mg PO HS PRN 07/09/23 07/09/23 Gabapentin [Neurontin] 300 mg PO QPM 07/09/23 07/09/23 Milk Thistle Seed Extract 1,000 mg PO QPM 07/09/23 07/09/23 [place]-3/Dha/Epa/Fish Oil [Fish Oil 1 cap PO BID 07/09/23 07/09/23 1,000 mg Softgel] Pantoprazole [Protonix] 40 mg PO BID 07/09/23 07/09/23 carvediloL [Coreg] 3.125 mg PO QPM 07/09/23 07/09/23 carvediloL [Coreg] 6.25 mg PO DAILY 07/09/23 07/09/23 ursodioL [Ursodiol] 500 mg PO BID 07/09/23 07/09/23 - Allergies Allergies/Adverse Reactions: Allergies Allergy/AdvReac Type Severity Reaction Status Date / Time erythromycin base Allergy Unknown Verified 07/09/23 22:17 Sulfa (Sulfonamide Allergy Unknown Verified 07/09/23 22:17 Antibiotics) - Social History Does the pt smoke?: No Smoking Status: Never smoker Does the pt drink ETOH?: Yes Does the pt have substance abuse?: No - Immunizations Immunizations are current?: Yes - POLST Patient has POLST: No POLST Status: DNR PD ED PE NORMAL - Vitals Vital signs reviewed: Yes - General General: Alert and oriented X 3, No acute distress, Well developed/nourished - Neck Neck: Supple, no meningeal sign - Cardiac Cardiac: RRR - Respiratory Respiratory: No respiratory distress, Clear bilaterally - Abdomen Abdomen: Soft, Non tender - Derm Derm: Normal color, Warm and dry - Extremities Extremities: No edema - Neuro Neuro: Alert and oriented X 3, technical professional 2-12 intact, No motor deficit, No sensory deficit, Normal speech Eye Opening: Spontaneous Motor: Obeys Commands Verbal: Oriented GCS Score: 15 - Psych Psych: Normal mood, Normal affect PD ED PE EXPANDED - Cardiac Cardiac: Murmur Present (3/6 crescendo murmur, diffusely across precordium) Results - Vitals Vitals: Vital Signs - 24 hr 07/09/23 07/09/23 07/10/23 22:05 23:00 00:00 Temperature 37.2 C Heart Rate 75 68 66 Respiratory 18 22 20 Rate Blood Pressure 190/93 H 186/89 H 177/87 H O2 Saturation 96 95 98 Oxygen O2 Source Room air - EKG (time done) No standard instances EKG releavant findings:: EKG personally interpreted by author of this note. Relevant findings are: Rate: Rate (enter#) (72) Rhythm: NSR [place]: Normal Intervals: Wide QRS, Other (NSIVCD) Ischemia: T wave inversion (V2-V4 and inferior leads; flat T V5, V6) - Labs Labs: Laboratory Tests 07/09/23 07/09/23 07/09/23 22:24 22:55 22:55 WBC 6.5 RBC 4.48 Hgb 13.3 Hct 42.4 MCV 94.6 MCH 29.7 MCHC 31.4 L RDW 16.3 H Plt Count 104 L MPV 10.9 H Neut # (Auto) 4.9 Lymph # (Auto) 0.5 L [place] # (Auto) 0.9 Eos # (Auto) 0.1 Baso # (Auto) 0.0 Absolute Nucleated RBC 0.00 Nucleated RBC % 0.0 Sodium 133 L Potassium 2.0 L* Chloride 84 L Carbon Dioxide 41 H* Anion Gap 8.0 BUN 21 H Creatinine 0.9 Estimated GFR (MDRD) 60 L Glucose 139 H Calcium 9.0 Phosphorus 1.3 L Magnesium 1.6 L Total Creatine Kinase TSH 2.31 07/09/23 22:55 WBC RBC Hgb Hct MCV MCH MCHC RDW Plt Count MPV Neut # (Auto) Lymph # (Auto) [place] # (Auto) Eos # (Auto) Baso # (Auto) Absolute Nucleated RBC Nucleated RBC % Sodium Potassium Chloride Carbon Dioxide Anion Gap BUN Creatinine Estimated GFR (MDRD) Glucose Calcium Phosphorus Magnesium Total Creatine Kinase 53 TSH PD Medical Decision Making - ED course Complexity details: reviewed results, re-evaluated patient, considered differential, d/w patient ED course: Patient comes to the emergency department as instructed by her PCP after she was found to have potassium level on outpatient draw earlier today of 2.5. On franco's blood draw in the emergency department, her potassium level is 2.0. She also has low phosphorus (1.3), magnesium (1.6). She does note generalized w eakness, but she says it is no different than her baseline which is due to muscular dystrophy. She is given 20meq potassium bicarbonate PO and I have ordered 10meq K-riders x 4 as well as 2gm IV magnesium sulfate. The severity of franco's hypokalemia indicates need for admission to the hospital for repletion and further testing to try to determine the cause. I discussed this case with [facility] telehealth who accepts patient to [facility] hospitalist service. Departure - Departure Disposition: [facility] DC/Rajinder Clinical Impression: Hypokalemia Condition: Stable Discharge Date/Time: 07/10/23 02:00
[2023-07-09 23:28] LABS: CREATININE 0.9 mg/dL (0.6-1.3)
[2023-07-09] MEDS ORDERED: POTASSIUM CHLOR 10 MEQ/100 ML 10 MEQ/100 ML BAG IV STA (23:29)
[2023-07-09] MEDS: POTASSIUM CHLOR 10 MEQ/100 ML 10 MEQ/100 ML BAG IV SCH (23:46)
[2023-07-09 23:55] LABS: MAGNESIUM 1.6 mg/dL (1.7-2.3); PHOSPHORUS 1.3 mg/dL (2.5-5.0)
[2023-07-09] MEDS: POTASSIUM BICARB 25 MEQ TABLET PO STA (23:55)
[2023-07-10] MEDS: SODIUM CHLORIDE 0.9% 1,000 ML IV STA (00:09)
[2023-07-10 00:30] LABS: THYROID STIMULATING HORMONE 2.31 uIU/mL (0.34-5.60)
[2023-07-10] MEDS ORDERED: ONDANSETRON 4 MG/2 ML VIAL IVP PRN (00:54)
[2023-07-10] MEDS ORDERED: SODIUM CHLORIDE FLUSH 0.9% 10 ML SYRINGE IVP PRN (00:54)
[2023-07-10 00:58] LABS: BASOPHILS % (AUTO) 0.5 %; EOSINOPHILS # (AUTO) 0.1 10^3/uL (0.0-0.7); HCT - HEMATOCRIT 42.4 % (37.0-47.0); HGB - HEMOGLOBIN 13.3 g/dL (12.0-16.0); LYMPHOCYTES # (AUTO) 0.5 10^3/uL (1.5-3.5); LYMPHOCYTES % (AUTO) 7.6 %; MEAN CORPUSCULAR HEMOGLOBIN 29.7 pg (27.0-31.0); MEAN CORPUSCULAR HGB CONC 31.4 g/dL (32.0-36.0); MEAN CORPUSCULAR VOLUME 94.6 fL (81.0-99.0); MEAN PLATELET VOLUME 10.9 fL (7.9-10.8); MONOCYTES # (AUTO) 0.9 10^3/uL (0.0-1.0); MONOCYTES % (AUTO) 13.6 %; NEUTROPHILS # (AUTO) 4.9 10^3/uL (1.5-6.6); PLT - PLATELET COUNT 104 10^3/uL (130-450); RED BLOOD COUNT 4.48 10^6/uL (4.20-5.40); RED CELL DISTRIBUTION WIDTH 16.3 % (12.0-15.0); WHITE BLOOD COUNT 6.5 x10^3/uL (4.8-10.8)
--- NOTE | 2023-07-10 01:12 | HISTORY & PHYSICAL EXAMINATION ---
Chief Complaint - Chief Complaint Chief Complaint: Low potassium History of Present Illness - History of Present Illness HPI Comment/Other: 83 y old female with PMH HTN, Hyperlipidemia sent by PCP to ER due to low potassium. Apparentlt pt had labs done yesterday which showed K 2.5. 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 She is lived there since 2000. 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 She states that she got a master's in theology in [place]. She is originally from [place]. She is and has 2 adult children and 4 adult grandchildren. She was previously a smoker she smoked for 11 years and smoked 1 pack per day but quit 45 years ago. She denies any illicit drug use and does a dmit to being a social drinker her last drink was 4 weeks ago. - POLST Patient has POLST: No POLST Status: DNR Meds/Allgy - Home Medications Home Medications: Ambulatory Orders Medication Instructions Recorded Confirmed Amlodipine Besylate [Norvasc] 1 - 2 tab PO DAILY 07/09/23 07/09/23 Denosumab [Prolia] 60 mg SUBQ ONCE 07/09/23 07/09/23 Docusate Sodium 100Mg Capsule 100 mg PO DAILY 07/09/23 07/09/23 [Colace 100Mg Capsule] Ferrous Sulfate 325 mg PO DAILY 07/09/23 07/09/23 Furosemide [Lasix] 40 mg PO DAILY 07/09/23 07/09/23 Gabapentin [Neurontin] 100 - 200 mg PO HS PRN 07/09/23 07/09/23 Gabapentin [Neurontin] 300 mg PO QPM 07/09/23 07/09/23 Milk Thistle Seed Extract 1,000 mg PO QPM 07/09/23 07/09/23 [place]-3/Dha/Epa/Fish Oil [Fish Oil 1 cap PO BID 07/09/23 07/09/23 1,000 mg Softgel] Pantoprazole [Protonix] 40 mg PO BID 07/09/23 07/09/23 carvediloL [Coreg] 3.125 mg PO QPM 07/09/23 07/09/23 carvediloL [Coreg] 6.25 mg PO DAILY 07/09/23 07/09/23 ursodioL [Ursodiol] 500 mg PO BID 07/09/23 07/09/23 - Allergies Allergies/Adverse Reactions: Allergies Allergy/AdvReac Type Severity Reaction Status Date / Time erythromycin base Allergy Unknown Verified 07/09/23 22:17 Sulfa (Sulfonamide Allergy Unknown Verified 07/09/23 22:17 Antibiotics) Review of Systems - Constitutional Constitutional: reports: Weakness - Other Findings Other Findings: 10 point systems were reviewwed and were negative except mentioned in HPI Exam - Vital Signs Vital Signs: Vital Signs x48h Temp Pulse Resp BP Pulse Ox 07/09/23 22:05 37.2 C 75 18 190/93 H 96 - Physical Exam General Appearance: positive: No acute distress Eyes Bilateral: positive: Normal inspection ENT: positive: ENT inspection nml Neck: positive: Nml inspection Respiratory: positive: Chest non-tender Cardiovascular: positive: Regular rate & rhythm Abdomen: positive: Non-tender, Nml bowel sounds Skin: positive: No rash Extremities: positive: Non-tender, No pedal edema Neurologic/Psychiatric: positive: Oriented x3, Motor nml Conclusion/Plan - Lab Results Fish Bones: 07/09/23 22:24 07/09/23 22:55 - Other Other Results/Comments: A: Hypokalemia Hypomagnesemia Dehydration weakness HTN Hyperlipidemia Plan; Admit in tele Replace electrolytes Repeat CBC, CMP, mag in am Avoid IVF due to accelerated HTN Increase coreg to 12.5 mg bid Start amlodipine 5 mg po qd PT eval DVT prophylaxic: SCD Full code Pt is admitted as inpatient as more than 2 midnight stay is expected
[2023-07-10] MEDS: MAGNESIUM SULFATE 2 GRAM 2 GM/50 ML BAG IV ONE ×2 (01:37→12:15)
[2023-07-10] MEDS: SODIUM CHLORIDE FLUSH 0.9% 10 ML SYRINGE IVP SCH (02:07)
[2023-07-10] MEDS: hydrALAZINE INJ 20 MG/ML VIAL IVP PRN (02:21)
[2023-07-10] MEDS: LABETALOL 20 MG/4 ML SYRINGE IVP ONE (05:14)
[2023-07-10 05:17] LABS: BASOPHILS % (AUTO) 0.2 %; EOSINOPHILS # (AUTO) 0.1 10^3/uL (0.0-0.7); EOSINOPHILS % (AUTO) 1.1 %; HCT - HEMATOCRIT 39.9 % (37.0-47.0); HGB - HEMOGLOBIN 12.7 g/dL (12.0-16.0); LYMPHOCYTES # (AUTO) 0.5 10^3/uL (1.5-3.5); LYMPHOCYTES % (AUTO) 7.3 %; MEAN CORPUSCULAR HEMOGLOBIN 29.8 pg (27.0-31.0); MEAN CORPUSCULAR HGB CONC 31.8 g/dL (32.0-36.0); MEAN CORPUSCULAR VOLUME 93.7 fL (81.0-99.0); MEAN PLATELET VOLUME 9.6 fL (7.9-10.8); MONOCYTES # (AUTO) 0.8 10^3/uL (0.0-1.0); MONOCYTES % (AUTO) 12.7 %; NEUTROPHILS % (AUTO) 78.4 %; PLT - PLATELET COUNT 98 10^3/uL (130-450); RED BLOOD COUNT 4.26 10^6/uL (4.20-5.40); RED CELL DISTRIBUTION WIDTH 16.2 % (12.0-15.0); WHITE BLOOD COUNT 6.3 x10^3/uL (4.8-10.8)
[2023-07-10 05:36] LABS: MAGNESIUM 1.7 mg/dL (1.7-2.3)
[2023-07-10 05:39] LABS: ALBUMIN 3.5 g/dL (3.2-5.5); ALBUMIN/GLOBULIN RATIO 0.9 (1.0-2.2); CALCIUM 8.6 mg/dL (8.5-10.3); CREATININE 0.7 mg/dL (0.6-1.3); POTASSIUM 2.6 mmol/L (3.5-4.5); TOTAL PROTEIN 7.3 g/dL (6.4-8.9)
[2023-07-10] MEDS: amLODIPine 5 MG TABLET PO SCH (08:49)
[2023-07-10] MEDS: carvediloL 12.5 MG TABLET PO SCH (08:49)
[2023-07-10] MEDS: NS W/20 MEQ KCL 1,000 ML IV SCH (12:15)
[2023-07-10] MEDS: MAGNESIUM OXIDE 400 MG TABLET PO SCH (12:19)
[2023-07-10] MEDS: POTASSIUM PHOSPHATE 21 MMOL in SODIUM CHLORIDE 0.9% 250 ML IV ONE (12:57)
--- NOTE | 2023-07-10 13:35 | PHARMACY PROGRESS NOTE ---
- Best Possible Medication History Admit Date and Time: 07/10/23 0055 Processed by: Pharmacy Medication History completed: Yes Patient Interview: Completed Secondary Source(s): Written medication list, Insurance records As the person ultimately responsible for medication therapy, providers are able to order a medication from an existing home medication list in [facility] via the "Reconcile Routine" prior to Confirmation of that medication by application support administrator. Such practice is discouraged except when the physician, in their clinical judgment, deems that a medical need exists for a medication without regard to previous use.
[2023-07-10 19:46] LABS: CALCIUM 8.8 mg/dL (8.5-10.3); CREATININE 0.8 mg/dL (0.6-1.3)
[2023-07-10] MEDS: GABAPENTIN 100 MG CAPSULE PO ONE (21:08)
[2023-07-11 05:40] LABS: CALCIUM 7.9 mg/dL (8.5-10.3); CREATININE 0.7 mg/dL (0.6-1.3); PHOSPHORUS 2.4 mg/dL (2.5-5.0); POTASSIUM 3.1 mmol/L (3.5-4.5)
[2023-07-11] MEDS: CALCIUM CARB (OYSTER SHELL) 500 MG TABLET PO ONE (09:29)
[2023-07-11] MEDS: NS W/20 MEQ KCL 1,000 ML IV SCH (09:30)
[2023-07-11] MEDS: POTASSIUM PHOSPHATE 21 MMOL in SODIUM CHLORIDE 0.9% 250 ML IV ONE (09:45)
[2023-07-11 15:31] VITALS: BP 173/85; O2SAT 93
[2023-07-11 15:44] LABS: CALCIUM 8.5 mg/dL (8.5-10.3); CREATININE 0.9 mg/dL (0.6-1.3); POTASSIUM 4.6 mmol/L (3.5-4.5)
--- NOTE | 2023-07-11 16:00 | Discharge Plan ---
Discharge Plan Problem Reviewed?: Yes Disposition: Home, Self Care Condition: Fair Diet: Cardiac Activity Restrictions: Activity as Tolerated Shower Restrictions: No Health Concerns: You were hospitalized and needed 2 days of receiving potassium supplements, magnesium supplements, and phosphate supplement plus saline iv, to replace low electrolyte levels. The reasons that you have such wide fluctuations in these electrolytes is not known. You are being discharged home today. Please follow the last set of instructions and list of medications that were given to you from the last hospitalization. Please call your Primary Care Provider and your Lamp Tester And Inspector tomorrow since they may want you back on some Potassium tablets, etc and to be seen for a hospital follow-up office visit, where repeat labs will undoubtedly be done. Plan of Treatment: As above. Care Goals: Improvement in symptoms and stabilization are the goals. Assessment: The patient understands and is agreeable with the plan. No Smoking: If you smoke, Please STOP! Call for help. Follow-up with: Dorie Oliveira MD [Primary Care Provider] -
--- NOTE | 2023-07-11 16:12 | DISCHARGE SUMMARY ---
Discharge Summary Admit Date: 07/10/23 Discharge Date: 07/11/23 Discharging Provider: Dr Perri Gallegos Primary Care Provider: Dr Dorie Oliveira Condition at Discharge: Fair Discharge Disposition: Home Health Service - HPI History of Present Illness: 83 y old female with PMH HTN, Muscular Dystrophy, Primary Biliary Cirrhosis with known esophageal varices, was sent in by PCP to ER due to low potassium on blood tests.Pt had labs done yesterday which showed K 2.5. She C/O generalized weakness. Denies HOFFMANN, chest pain, SOB, fever, N/V, abdominal pain, diarrhea constipation. On presentation, BP was somewhat elevated, exam was unremarkable. Labs showed K 2.0, Mag 1.6. As per ER physician, he has ordered K & Mg replacment to start. Pt will be hospitalized to treat hypokalemia, hypomagnesemia, and weakness. - HOSPITAL COURSE Hospital Course: 1) Hypokalemia Patient shared with us that she was recently had her Spironolactone stopped due to hyperkalemia. While here, we had to replace her potassium with many iv potassium riders. Her Phosphate was low at 2.4, therefore KPhos was also replaced. She was discharged with a potassium level of 4.6. She was advised to contact PCP to get recommendations on whether she should restart Spironolactone or perhaps be on a potassium replacement, since she is on Lasix. 2) Hypomagnesemia She needed replacement with many magnesium IV riders. Her Mg at discharge was 2.0. She may have total body depletion of potassium and magnesium from being on Lasix, and may need K and Mg supplements. 3) Hypocalcemia Patient shared with us that she was recently hospitalized at [facility] due to hypercalcemia. She said she went through many tests and the reason was never found. Here her Ca level was 7.9 with a normal serum Albumen, so she just got a one-time Ca replacement. 4) Muscular dystrophy This causes her weakness and she has a large staff of caregivers at home, she reports. [employer] was ordered to resume. 5) HTN We kept her on her same blood pressure meds 6) Aortic stenosis Her systolic murmur is readily heard. Her last Echo was done in February 2022 and showed mild-moderate . 7) Primary biliary cirrhosis She reports that she has had esophageal varices that bled, therefore she must have portal HTN, but she says she gets no ascites. 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 - ALLERGIES Allergies/Adverse Reactions: Allergies Allergy/AdvReac Type Severity Reaction Status Date / Time erythromycin base Allergy Unknown Verified 07/09/23 22:17 Sulfa (Sulfonamide Allergy Unknown Verified 07/09/23 22:17 Antibiotics) - MEDICATIONS Home Medications: Ambulatory Orders Medication Instructions Recorded Confirmed Amlodipine Besylate [Norvasc] 1 - 2 tab PO DAILY 07/09/23 07/09/23 Denosumab [Prolia] 60 mg SUBQ ONCE 07/09/23 07/09/23 Docusate Sodium 100Mg Capsule 100 mg PO DAILY PRN 07/09/23 07/09/23 [Colace 100Mg Capsule] Ferrous Sulfate 325 mg PO DAILY 07/09/23 07/09/23 Furosemide [Lasix] 40 mg PO DAILY 07/09/23 07/09/23 Gabapentin [Neurontin] 100 - 200 mg PO HS PRN 07/09/23 07/09/23 Gabapentin [Neurontin] 300 mg PO QPM 07/09/23 07/09/23 Milk Thistle Seed Extract 1,000 mg PO QPM 07/09/23 07/09/23 Pantoprazole [Protonix] 40 mg PO BID 07/09/23 07/09/23 carvediloL [Coreg] 3.125 mg PO QPM 07/09/23 07/09/23 carvediloL [Coreg] 6.25 mg PO DAILY 07/09/23 07/09/23 ursodioL [Ursodiol] 500 mg PO BID 07/09/23 07/09/23 [place]-3/Dha/Epa/Fish Oil [Fish Oil 1 cap PO BID 07/10/23 07/10/23 1,000 mg Softgel] - PHYSICAL EXAM AT DISCHARGE General Appearance: positive: No acute distress, Alert, Other (Thin, elderly female (BMI 21)) Eyes Bilateral: positive: Normal inspection, EOMI ENT: positive: ENT inspection nml, No signs of dehydration Neck: positive: Nml inspection, No JVD Respiratory: positive: No respiratory distress, Breath sounds nml Cardiovascular: positive: Regular rate & rhythm, Systolic murmur (Harsh, late peaking, loudest over aortic area) Abdomen: positive: Non-tender, No distention Skin: positive: Warm, Dry Extremities: positive: Non-tender, Other (Trace ankle edema) Neurologic/Psychiatric: positive: Oriented x3, CN's nml (2-12) - LABS Result Diagrams: 07/10/23 05:11 07/11/23 15:15 - FOLLOW UP Follow Up: See PCP for F/U. - TIME SPENT Time Spent in Discharge (Minutes): 30
== END 2023-07-11 17:40 | disposition home health service (06) ==
LOC: ED 21:56 → INTOOBSV 07-10 00:55 → MS2 07-10 00:55 → UNDOADMOB 07-10 00:55 → ED 07-10 02:00 → MS2 07-10 14:34 → UNDOADMOB 07-10 14:34 → ED 07-10 17:27
PROVIDERS: ADMIT Internal Medicine; ATTEND Internal Medicine
DX: E87.6 Hypokalemia (principal); E83.42 Hypomagnesemia; E83.51 Hypocalcemia; G71.00 Muscular dystrophy, unspecified; I10 Essential (primary) hypertension; I85.10 Secondary esophageal varices without bleeding; I35.0 Nonrheumatic aortic (valve) stenosis; K74.3 Primary biliary cirrhosis; I48.91 Unspecified atrial fibrillation; F32.A Depression, unspecified; F41.9 Anxiety disorder, unspecified; Z87.891 Personal history of nicotine dependence; Z66 Do not resuscitate; E86.0 Dehydration; R53.1 Weakness; E78.5 Hyperlipidemia, unspecified
CPT/HCPCS: 36415; 80048; 80053; 82550; 82610; 83735; 84100; 84443; 85025; 93005; 96361; 96365; 96366; 96367; 96368; 96375; 96376; 97162; 97530; 99284; 99285; A9270; G0378; 81599

== ENCOUNTER 2023-07-15 08:00 | Outpatient (CLI) | payer MEDICARE, OTHER ==
[2023-07-15 14:56] LABS: BASOPHILS % (AUTO) 0.8 %; EOSINOPHILS # (AUTO) 0.1 10^3/uL (0.0-0.7); EOSINOPHILS % (AUTO) 2.1 %; HCT - HEMATOCRIT 39.8 % (37.0-47.0); HGB - HEMOGLOBIN 12.6 g/dL (12.0-16.0); LYMPHOCYTES # (AUTO) 0.5 10^3/uL (1.5-3.5); LYMPHOCYTES % (AUTO) 10.2 %; MEAN CORPUSCULAR HEMOGLOBIN 30.7 pg (27.0-31.0); MEAN CORPUSCULAR HGB CONC 31.7 g/dL (32.0-36.0); MEAN CORPUSCULAR VOLUME 97.1 fL (81.0-99.0); MEAN PLATELET VOLUME 10.2 fL (7.9-10.8); MONOCYTES # (AUTO) 0.6 10^3/uL (0.0-1.0); MONOCYTES % (AUTO) 10.7 %; PLT - PLATELET COUNT 145 10^3/uL (130-450); RED CELL DISTRIBUTION WIDTH 16.5 % (12.0-15.0); WHITE BLOOD COUNT 5.2 x10^3/uL (4.8-10.8)
[2023-07-15 16:14] LABS: ALBUMIN 3.5 g/dL (3.2-5.5); BILIRUBIN,TOTAL 0.8 mg/dL (0.2-1.0); CALCIUM 8.7 mg/dL (8.5-10.3); CREATININE 0.9 mg/dL (0.6-1.3); MAGNESIUM 2.1 mg/dL (1.7-2.3); PHOSPHORUS 2.3 mg/dL (2.5-5.0); POTASSIUM 4.8 mmol/L (3.5-4.5)
== END 2023-07-15 23:59 | disposition home or self-care (01) ==
LOC: LAB.F 08:00
PROVIDERS: ATTEND Internal Medicine
DX: N18.9 Chronic kidney disease, unspecified (principal); K74.3 Primary biliary cirrhosis
CPT/HCPCS: 80053; 81599; 82610; 83735; 84100; 85025

== ENCOUNTER 2023-07-19 08:00 | Outpatient (CLI) | payer MEDICARE, OTHER ==
[2023-07-19 15:32] LABS: CALCIUM 9.1 mg/dL (8.5-10.3); CREATININE 0.9 mg/dL (0.6-1.3); POTASSIUM 4.3 mmol/L (3.5-4.5)
== END 2023-07-19 23:59 | disposition home or self-care (01) ==
LOC: LAB.R 08:00
PROVIDERS: ATTEND Internal Medicine
DX: M62.81 Muscle weakness (generalized) (principal)
CPT/HCPCS: 80048; 80053

== ENCOUNTER 2023-07-20 13:28 | Outpatient (CLI) | payer MEDICARE, OTHER | END 2023-07-20 13:29 | disposition critical access hospital (66) | LOC: EMS 13:28 | DX: R10.9 Unspecified abdominal pain (principal); R53.1 Weakness; R19.7 Diarrhea, unspecified | CPT/HCPCS: A0425; A0427 ==

== ENCOUNTER 2023-07-20 13:54 | Inpatient (IN) | payer MEDICARE, OTHER ==
[2023-07-20 14:26] LABS: BASOPHILS % (AUTO) 0.4 %; EOSINOPHILS # (AUTO) 0.1 10^3/uL (0.0-0.7); EOSINOPHILS % (AUTO) 1.2 %; HCT - HEMATOCRIT 51.8 % (37.0-47.0); HGB - HEMOGLOBIN 15.6 g/dL (12.0-16.0); LYMPHOCYTES # (AUTO) 0.6 10^3/uL (1.5-3.5); LYMPHOCYTES % (AUTO) 7.5 %; MEAN CORPUSCULAR HEMOGLOBIN 29.3 pg (27.0-31.0); MEAN CORPUSCULAR HGB CONC 30.1 g/dL (32.0-36.0); MEAN CORPUSCULAR VOLUME 97.4 fL (81.0-99.0); MEAN PLATELET VOLUME 9.6 fL (7.9-10.8); MONOCYTES # (AUTO) 0.5 10^3/uL (0.0-1.0); MONOCYTES % (AUTO) 7.2 %; NEUTROPHILS # (AUTO) 6.2 10^3/uL (1.5-6.6); NEUTROPHILS % (AUTO) 83.3 %; PLT - PLATELET COUNT 136 10^3/uL (130-450); RED BLOOD COUNT 5.32 10^6/uL (4.20-5.40); RED CELL DISTRIBUTION WIDTH 16.7 % (12.0-15.0); WHITE BLOOD COUNT 7.5 x10^3/uL (4.8-10.8)
[2023-07-20 14:31] LABS: SLIDE REVIEW? Indicated
[2023-07-20 14:43] LABS: PLATELET ESTIMATE, MANUAL NORMAL (130-450,000) (NORMAL)
[2023-07-20] MEDS: SODIUM CHLORIDE 0.9% 1,000 ML IV STA ×2 (14:45→17:16)
--- NOTE | 2023-07-20 15:06 | ED Physician Documentation ---
History of Present Illness - Stated complaint Stated Complaint: ABD PX - Chief complaint Chief Complaint: Abd Pain - History obtained from History obtained from: Patient - Additonal information Additional information: Patient is an 83-year-old female with a history of muscular dystrophy, hypertension, primary biliary cirrhosis with known esophageal varices presenting for evaluation of generalized weakness. Patient reports she was feeling fine up until noon time when she started having abdominal cramping and several loose bowel movements. She then felt too weak to get off the toilet. EMS noted that her initial blood pressures were low with systolics in the 70s. This did improve with IV fluids. Patient was recently admitted for hypokalemia on July 10. There have been adjustments made to her diuretic. She is not on potassium replacement. She denies recent vomiting, chest pain, shortness of air, fever, dysuria. Patient does not take aspirin or blood thinner. She is actually scheduled for an upper EGD with Dr. Ivan at [facility] this Wednesday. Review of Systems Constitutional: denies: Fever Cardiac: denies: Chest pain / pressure Respiratory: denies: Dyspnea GI: reports: Abdominal Pain, Diarrhea. 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 : Kidney stones HEENT: None Psych: Depression, Anxiety Musculoskeletal: Chronic back pain, Other Derm: None - Past Surgical History Past Surgical History: Yes General: Colonoscopy, EGD, Other Ortho: Other - Present Medications Home Medications: Ambulatory Orders Medication Instructions Recorded Confirmed Amlodipine Besylate [Norvasc] 1 - 2 tab PO DAILY 07/09/23 07/09/23 Denosumab [Prolia] 60 mg SUBQ ONCE 07/09/23 07/09/23 Docusate Sodium 100Mg Capsule 100 mg PO DAILY PRN 07/09/23 07/09/23 [Colace 100Mg Capsule] Ferrous Sulfate 325 mg PO DAILY 07/09/23 07/09/23 Furosemide [Lasix] 40 mg PO DAILY 07/09/23 07/09/23 Gabapentin [Neurontin] 100 - 200 mg PO HS PRN 07/09/23 07/09/23 Gabapentin [Neurontin] 300 mg PO QPM 07/09/23 07/09/23 Milk Thistle Seed Extract 1,000 mg PO QPM 07/09/23 07/09/23 Pantoprazole [Protonix] 40 mg PO BID 07/09/23 07/09/23 carvediloL [Coreg] 3.125 mg PO QPM 07/09/23 07/09/23 carvediloL [Coreg] 6.25 mg PO DAILY 07/09/23 07/09/23 ursodioL [Ursodiol] 500 mg PO BID 07/09/23 07/09/23 [place]-3/Dha/Epa/Fish Oil [Fish Oil 1 cap PO BID 07/10/23 07/10/23 1,000 mg Softgel] - Allergies Allergies/Adverse Reactions: Allergies Allergy/AdvReac Type Severity Reaction Status Date / Time erythromycin base Allergy Unknown Verified 07/20/23 14:13 Sulfa (Sulfonamide Allergy Unknown Verified 07/20/23 14:13 Antibiotics) - Social History Does the pt smoke?: No Smoking Status: Never smoker Does the pt drink ETOH?: Yes Does the pt have substance abuse?: No - Immunizations Immunizations are current?: Yes - POLST Patient has POLST: No POLST Status: DNR PD ED PE NORMAL - General General: Alert and oriented X 3, No acute distress, Well developed/nourished - HEENT HEENT: Atraumatic, Moist mucous membranes, Pharynx benign - Neck Neck: Supple, no meningeal sign - Cardiac Cardiac: RRR, Strong equal pulses - Respiratory Respiratory: No respiratory distress, Clear bilaterally - Abdomen Abdomen: Normal bowel sounds, Soft, Non tender, Non distended - Rectal 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: Other ([employer]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; 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 with some blood) - Derm Derm: Warm and dry - Extremities Extremities: Other (Bilateral lower extremity swelling) - Neuro Neuro: Normal speech Results - Vitals Vitals: Vital Signs - 24 hr 07/20/23 07/20/23 07/20/23 14:04 14:10 14:16 Temperature 36.1 C L Heart Rate 57 L 53 L 53 L Respiratory 17 17 18 Rate Blood Pressure 91/52 L 125/110 H O2 Saturation 97 If not protocol 2 : Oxygen Flow, liters/minute 0207/20/23 07/20/23 16:16 16:58 17:43 Temperature Heart Rate 57 L 55 L 57 L Respiratory 17 20 17 Rate Blood Pressure 103/74 99/50 L 107/45 L O2 Saturation 97 97 96 If not protocol 2 : Oxygen Flow, liters/minute 07/20/23 19:00 Temperature Heart Rate 57 L Respiratory 17 Rate Blood Pressure 96/52 L O2 Saturation 97 If not protocol 2 : Oxygen Flow, liters/minute Oxygen O2 Source Nasal cannula - EKG (time done) 1535 EKG releavant findings:: EKG personally interpreted by author of this note. Relevant findings are: Rate 53, normal sinus rhythm, right bundle branch block, no STEMI - Labs Labs: Microbiology 07/20/23 17:08 Occult Blood - Final Stool Laboratory Tests 07/20/23 07/20/23 07/20/23 14:22 14:50 16:00 WBC 7.5 RBC 5.32 Hgb 15.6 Hct 51.8 H MCV 97.4 MCH 29.3 MCHC 30.1 L RDW 16.7 H Plt Count 136 MPV 9.6 Neut # (Auto) 6.2 Lymph # (Auto) 0.6 L [place] # (Auto) 0.5 Eos # (Auto) 0.1 Baso # (Auto) 0.0 Absolute Nucleated RBC 0.00 Nucleated RBC % 0.0 Manual Slide Review Indicated Platelet Estimate NORMAL (130-450,000) Sodium 133 L Potassium 3.6 Chloride 95 L Carbon Dioxide 31 Anion Gap 7.0 BUN 28 H Creatinine 1.1 Estimated GFR (MDRD) 48 L Glucose 104 Lactic Acid Calcium 8.4 L Magnesium 1.9 Total Bilirubin 0.8 AST 29 ALT 12 Alkaline Phosphatase 68 Total Protein 6.4 Albumin 3.0 L Globulin 3.4 Albumin/Globulin Ratio 0.9 L Lipase 40 Stl C. diff Tox B Gene POSITIVE A* 07/20/23 07/20/23 18:03 18:03 WBC RBC Hgb 14.0 Hct 45.2 MCV MCH MCHC RDW Plt Count MPV Neut # (Auto) Lymph # (Auto) [place] # (Auto) Eos # (Auto) Baso # (Auto) Absolute Nucleated RBC Nucleated RBC % Manual Slide Review Platelet Estimate Sodium Potassium Chloride Carbon Dioxide Anion Gap BUN Creatinine Estimated GFR (MDRD) Glucose Lactic Acid 1.1 Calcium Magnesium Total Bilirubin AST ALT Alkaline Phosphatase Total Protein Albumin Globulin Albumin/Globulin Ratio Lipase Stl C. diff Tox B Gene PD Medical Decision Making - ED course Complexity details: reviewed results, re-evaluated patient, d/w patient, d/w family ED course: Pt with weakness, hypotension, and diarrhea. History of muscular dystrophy and esophageal varices. BPs responding to fluids. CBC and chemistries reviewed with no significant abnormalities. EKG non ischemic. No CP. Chest XR with low lung volumes. Stool sent for culture and cdiff testing. Pt had multiple episodes of diarrhea while in ED which were very dark in nature given she is on iron supplements and became hypotensive again. Considered volume loss vs blood loss as cause of hypotension. Pt had been given 1L by EMS and 1500ml in ED. If related to blood loss, then surgery would recommend transfer given history of varices. Cdiff was sent but still pending. Repeat H/H and lactic ordered. Pt signed out to Dr. Rondon at shift change. If no significant change in hemoglobin or if cdiff + then could consider admission here at [facility]. 1744 - Consulted with Dr. Paul given pt's hypotension and black stools with some blood (in the setting of iron supplementation). Given her history of esophageal varices she feels that the patient would be better served at a tertiary care facility if there is signs of significant blood loss that would be able to manage esophageal varices as we do not have the capabilities here. Recommends transfer at this time. However if patient's hemoglobin seems like it is stabilizing or her C. difficile is positive then could consider admitting here. 1746 - I called the lab and they stated that the C. difficile test will take another 2 hours to result. Departure - Departure Disposition: 02 Transfer Acute Care Hosp Clinical Impression: Diarrhea, Hypotension Forms: PCP List
[2023-07-20 15:10] LABS: ALBUMIN/GLOBULIN RATIO 0.9 (1.0-2.2); BILIRUBIN,TOTAL 0.8 mg/dL (0.2-1.0); CALCIUM 8.4 mg/dL (8.5-10.3); CREATININE 1.1 mg/dL (0.6-1.3); MAGNESIUM 1.9 mg/dL (1.7-2.3); POTASSIUM 3.6 mmol/L (3.5-4.5); TOTAL PROTEIN 6.4 g/dL (6.4-8.9)
--- NOTE | 2023-07-20 15:51 | XRAY Report ---
PROCEDURE: Chest 1V INDICATIONS: SOA TECHNIQUE: One view of the chest was acquired. COMPARISON: 03/30/2022 FINDINGS: Surgical changes and devices: None. Lungs and pleura: Very low lung volumes. Suspected left base consolidation and possible small pleura l effusion. Prominence of the right infrahilar region is also seen. Mediastinum: Normal heart size. Bones and chest wall: Degenerative changes. Suspected old rib fractures. IMPRESSION: Left base consolidation and possible right infrahilar opacity. Very low lung volumes on this single v iew portable radiograph limits evaluation. A lateral view could be helpful. Otherwise, consider surveillance to ensure resolution. Reviewed by: Faustino Browning MD on 07/20/2023 3:50 PM PST Approved by: Faustino Browning MD on 07/20/2023 3:50 PM PST Station ID: [id number]
[2023-07-20] MEDS: SODIUM CHLORIDE 0.9% 500 ML IV STA (17:19)
[2023-07-20 18:11] LABS: HCT - HEMATOCRIT 45.2 % (37.0-47.0)
--- NOTE | 2023-07-20 20:13 | ED Physician Documentation ---
ED Addendum - Addendum Addendum: 07/20/23 20:31 Patient is signed out to me by Dr. Delgado awaiting C. difficile results. She is C. difficile positive. Likely the cause of her mild blood in the stool. No evidence of variceal bleeding. I did discuss the case with Dr. Sotelo, GI at [facility] in [place], he agrees and does not feel the patient needs transfer. Hemoglobin did decrease from 15-14, but had several liters of IV fluid. She is still borderline hypotensive, afebrile. Given Flagyl and vancomycin. Discussed the case again with Dr. Sanders, general surgery on-call, she states that there is no surgical need at this time and recommends admission to the hospitalist service. Consultation placed for the nighttime hospitalist. 07/20/23 21:50 Discussed the case with nighttime hospitalist, we will admit the patient for further care. Departure - Departure Disposition: [facility] DC/Xfer Clinical Impression: C. difficile diarrhea Diarrhea Qualifiers: Diarrhea type: infectious Qualified Code(s): A09 - Infectious gastroenteritis and colitis, unspecified Hypotension Qualifiers: Hypotension type: unspecified hypotension type Qualified Code(s): I95.9 - Hypotension, unspecified Condition: Stable Forms: PCP List
[2023-07-20] MEDS: VANCOMYCIN 125 MG CAPSULE PO STA (20:42)
[2023-07-20] MEDS: metroNIDAZOLE 500 MG/100 ML 500 MG/100 ML BAG IV ONE (20:43)
--- NOTE | 2023-07-20 21:32 | HISTORY & PHYSICAL EXAMINATION ---
Chief Complaint - Chief Complaint Chief Complaint: generalized weakness History of Present Illness - Admitted From Admitted From:: home - History Obtained From History obtained from: patient Exam Limitations: telemedicine - History of Present Illness HPI Comment/Other: Ms Mullins is an 83-year-old female with a history of muscular dystrophy, hype rtension, primary biliary cirrhosis, known esophageal varices. Presents to ER with c/o generalized weakness, she started having abdominal cramping and several episodes of diarrhea around noon today. Too weak to get off the toilet. Systolic 70s at time of EMS arrival. Has not noticed any blood in the stool. Denies fevers/chills, denies vomiting, she did feel nauseous. Pt states she has gained 14 lbs since her hospital discharge 10 days ago. Her Lasix dose was adjusted at that time, denies peripheral edema. She feels short of breath in the mornings, improves during the day. Pt reports amlodipine was recently added to her med list. 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 She is lived there since 2000. 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 She states that she got a master's in theology in [place]. She is originally from [place]. She is and has 2 adult children and 4 adult grandchildren. She was previously a smoker she smoked for 11 years and smoked 1 pack per day but quit 45 years ago. She denies any illicit drug use and does admit to being a social drinker her last drink was 4 weeks ago. - POLST Patient has POLST: No POLST Status: DNR Meds/Allgy - Home Medications Home Medications: Ambulatory Orders Medication Instructions Recorded Confirmed Amlodipine Besylate [Norvasc] 1 - 2 tab PO DAILY 07/09/23 07/09/23 Denosumab [Prolia] 60 mg SUBQ ONCE 07/09/23 07/09/23 Docusate Sodium 100Mg Capsule 100 mg PO DAILY PRN 07/09/23 07/09/23 [Colace 100Mg Capsule] Ferrous Sulfate 325 mg PO DAILY 07/09/23 07/09/23 Furosemide [Lasix] 40 mg PO DAILY 07/09/23 07/09/23 Gabapentin [Neurontin] 100 - 200 mg PO HS PRN 07/09/23 07/09/23 Gabapentin [Neurontin] 300 mg PO QPM 07/09/23 07/09/23 Milk Thistle Seed Extract 1,000 mg PO QPM 07/09/23 07/09/23 Pantoprazole [Protonix] 40 mg PO BID 07/09/23 07/09/23 carvediloL [Coreg] 3.125 mg PO QPM 07/09/23 07/09/23 carvediloL [Coreg] 6.25 mg PO DAILY 07/09/23 07/09/23 ursodioL [Ursodiol] 500 mg PO BID 07/09/23 07/09/23 [place]-3/Dha/Epa/Fish Oil [Fish Oil 1 cap PO BID 07/10/23 07/10/23 1,000 mg Softgel] - Allergies Allergies/Adverse Reactions: Allergies Allergy/AdvReac Type Severity Reaction Status Date / Time erythromycin base Allergy Unknown Verified 07/20/23 14:13 Sulfa (Sulfonamide Allergy Unknown Verified 07/20/23 14:13 Antibiotics) Review of Systems - Constitutional Constitutional: reports: Fatigue, Weakness. denies: Fever, Chills - Eyes Eyes: denies: Pain - Ears, Nose & Throat Ears, Nose & Throat: reports: Hearing loss (hard of hearing) - Cardiovascular Cariovascular: denies: Chest pain, Exertional dyspnea - Respiratory Respiratory: reports: SOB at rest, SOB with exertion. denies: Cough, Sputum production - Gastrointestinal Gastrointestinal: reports: Abdominal pain (cramping), Diarrhea, Black stools, Nausea. denies: Rectal bleeding, Vomiting - Genitourinary Genitourinary: denies: Dysuria, Frequency - Musculoskeletal Musculoskeletal: denies: Muscle pain, Back pain - Integumentary Integumentary: denies: Rash, Pruritis - Neurological Neurological: reports: General weakness - Hematologic/Lymphatic Hematologic/Lymphatic: denies: Anemia Exam - Vital Signs Reviewed Vital Signs: Yes Vital Signs: Vital Signs x48h Temp Pulse Resp BP Pulse Ox O2 Flow Rate 07/20/23 19:00 57 L 17 96/52 L 97 2 07/20/23 17:43 57 L 17 107/45 L 96 2 07/20/23 16:58 55 L 20 99/50 L 97 07/20/23 16:16 57 L 17 103/74 97 07/20/23 14:16 53 L 18 07/20/23 14:10 36.1 C L 53 L 17 125/110 H 07/20/23 14:04 57 L 17 91/52 L 97 2 - Physical Exam General Appearance: positive: No acute distress, Alert Eyes Bilateral: positive: Normal inspection ENT: positive: ENT inspection nml Neck: positive: Nml inspection Respiratory: positive: No respiratory distress Skin: positive: Color nml, No rash Neurologic/Psychiatric: positive: Oriented x3, Mood/affect nml Conclusion/Plan - Lab Results Lab results reviewed: Yes Fish Bones: 07/20/23 18:03 07/20/23 14:50 - Diagnostic Imaging Results Diagnostic Imaging Results: positive: Final report reviewed - Other Other Results/Comments: Assessment/Plan: Acute C diff colitis -Pt presents with abd pain, several episodes of diarrhea -C diff + -Pt w dark stools guaiac + -ER provider has discussed with gen surg + GI (see notes, no intervention at this time) -Rec admit to hospitalist service -Trend H&H -IV metronidazole 500 mg q8h and PO vancomycin 500 mg q6h - higher dose regimen given associated hypotension -IV fluids for hydration, BP is improved -conveyor monitor for now -Hold antihypertensives and diuretics, caution with IV fluids GI ppx: SCDs Full code Telemedicine Consult Details - Provider Location & Consult Time Telemedicine consultation conducted via videoconferencing?: Yes List names and roles of persons who participated in consult:: me, patient Telemedicine provider location:: [place], [place]
[2023-07-21] MEDS: SODIUM CHLORIDE 0.9% 1,000 ML IV SCH (01:55)
[2023-07-21] MEDS: VANCOMYCIN 125 MG CAPSULE PO SCH (01:55)
[2023-07-21] MEDS: SODIUM CHLORIDE FLUSH 0.9% 10 ML SYRINGE IVP SCH (01:56)
[2023-07-21] MEDS: metroNIDAZOLE 500 MG/100 ML 500 MG/100 ML BAG IV SCH (05:59)
[2023-07-21] MEDS: ZINC OXIDE 20% OINT 30 GM TUBE TOP SCH (08:22)
[2023-07-21] MEDS: SACCHAROMYCES BOULARDII 250 MG CAPSULE PO SCH (10:24)
--- NOTE | 2023-07-21 11:46 | PHARMACY PROGRESS NOTE ---
- Best Possible Medication History Admit Date and Time: 07/20/23 7131 Processed by: Pharmacy Medication History completed: Yes Patient Interview: Pt unable to participate Secondary Source(s): Pharmacy records, Insurance records As the person ultimately responsible for medication therapy, providers are able to order a medication from an existing home medication list in [facility] via the "Reconcile Routine" prior to Confirmation of that medication by operations support analyst. Such practice is discouraged except when the physician, in their clinical judgment, deems that a medical need exists for a medication without regard to previous use.
--- NOTE | 2023-07-21 13:47 | PROVIDER PROGRESS NOTE ---
Assessment/Plan - Problem List (1) Stroke-like symptoms Assessment/Plan: Approximately 1830, the patient reported to her second shift nurse that she cannot move her right foot or right leg. She says it started suddenly at about breakfast time. She told no one about it till now. The time from onset is ap proximately 10 hours. Plan: Will get stat head CT. If no bleeding we will give 4 baby aspirin Give Atorvastatin now Will keep the patient on telemetry and monitor for A-fib Start q4h neuro checks Will obtain an Echo to evaluate for cardiac source of embolus She is past the window for neurostroke evaluation, not a TNK candidate therefore (2) Hypotension Qualifiers: Hypotension type: unspecified hypotension type Qualified Code(s): I95.9 - Hypotension, unspecified Assessment/Plan: BP was as low as 80 systolic. All her blood pressure meds have been put on hold. The low blood pressure is likely from fluid losses from frequent watery BMs plus from BP meds Plan: Give a saline bolus Resume IV fluids that came to a stop, as was ordered by the admitting telemedicine doctor Improving her BP is important in the face of a possible acute stroke so that she has good brain perfusion Follow BMP daily (3) C. difficile diarrhea Assessment/Plan: Pt presented with abd pain, several episodes of diarrhea, and tested C diff + Plan: IV metronidazole 500 mg q8h and PO vancomycin 500 mg q6h - higher dose regimen was started given associated hypotension IV fluids for hydration. Hold antihypertensives and diuretics, but careful administration of IV fluids Start Florastor Cont contact isolation (4) Melena Assessment/Plan: Pt w dark stools, and tested guaiac + ER provider discussed this finding with gen surg (see notes, no intervention at this time was the conclusion) Plan: Follow Hgb q12-24h Transfuse if hemoglobin less than 7 or if less than 8 with active bleeding I will check her iron panel and give either IV dextran or oral iron if it is indicated (5) Fascioscapulohumeral muscular dystrophy Assessment/Plan: As per Hx. She has caregivers at home all set up 6) Primary biliary cirrhosis She reports that she has had esophageal varices that bled, therefore she must have portal HTN, but she says she gets no ascites. 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 7) Aortic stenosis Her systolic murmur is readily heard. Her last Echo was done in February 2022 and showed mild-moderate . 8) Hx HTN All her blood pressure meds were put on hold because of the current hypotension, which I suspect is from fluid losses in the diarrhea Plan: Continue to hold BP meds - Current Meds Current Meds: Current Medications Generic Name Dose Route Start Last Admin Trade Name Ifeanyi PRN Reason Stop Dose Admin Metronidazole 500 mg in 100 mls @ 100 mls/hr 07/21/23 06:00 07/21/23 13:41 Flagyl 500 Mg/100 Ml IV 100 mls/hr Q8H MIGUE Administration Multi-Ingredient Ointment 1 applic 07/21/23 09:00 07/21/23 08:22 Zinc Oxide 20% Oint 30 Gm Tube TOP 1 applic BID MIGUE Administration Saccharomyces Boulardii 500 mg 07/21/23 10:00 07/21/23 10:24 Saccharomyces Boulardii 250 Mg Capsule PO 500 mg BIDWM MIGUE Administration Sodium Chloride 10 ml 07/21/23 01:00 07/21/23 08:23 Sodium Chloride Flush 0.9% 10 Ml Syringe IVP 10 ml 0100,0900,1700 MIGUE Administration Ursodiol 500 mg 07/21/23 09:00 07/21/23 08:22 Ursodiol 250 Mg Tablet PO 500 mg BID MIGUE Administration Vancomycin HCl 500 mg 07/21/23 02:00 07/21/23 13:41 Vancomycin 125 Mg Capsule PO 500 mg QID MIGUE Administration - Lab Result Fish Bone Diagrams: 07/20/23 18:03 07/20/23 14:50 - Diagnostic Imaging Results Diagnostic Imaging Results: Final report reviewed - Additional Planning My Orders: My Active Orders 07/21/23 Evaluate and Treat OT [OT] Routine Evaluate and Treat PT [PT] Routine 07/21/23 09:00 Zinc Oxide 20% Oint [Zinc Oxide] 1 applic TOP BID 07/21/23 10:00 Saccharomyces Boulardii [Florastor] 500 mg PO BIDWM Subjective - Subjective Patient Reports: Fatigue, Other (Pt just reported to her 2nd shift RN that she has no strength in R foot or leg & this is not like her musc dystrophy weakness) Nursing Reports: Diarrhea (5-6 today, liquid, but smaller in volume each time) Objective Vital Signs: Vital Signs - 24 hr 07/20/23 07/20/23 07/20/23 14:04 14:10 14:16 Temperature 36.1 C L Heart Rate 57 L 53 L 53 L Heart Rate [ Brachial] Heart Rate [ Radial] Respiratory 17 17 18 Rate Blood Pressure 91/52 L 125/110 H Blood Pressure [Right Brachial artery] O2 Saturation 97 If not protocol 2 : Oxygen Flow, liters/minute 07/20/23 07/20/23 07/20/23 16:16 16:58 17:43 Temperature Heart Rate 57 L 55 L 57 L Heart Rate [ Brachial] Heart Rate [ Radial] Respiratory 17 20 17 Rate Blood Pressure 103/74 99/50 L 107/45 L Blood Pressure [Right Brachial artery] O2 Saturation 97 97 96 If not protocol 2 : Oxygen Flow, liters/minute 07/20/23 07/20/23 07/21/23 19:00 23:34 02:37 Temperature 36.5 C 36.5 C Heart Rate 57 L Heart Rate [ Brachial] Heart Rate [ 62 82 Radial] Respiratory 17 20 20 Rate Blood Pressure 96/52 L Blood Pressure 117/49 L 97/49 L [Right Brachial artery] O2 Saturation 97 94 94 If not protocol 2 1 1 : Oxygen Flow, liters/minute 07/21/23 07/21/23 07/21/23 07:33 08:40 13:32 Temperature 36.6 C 36.6 C Heart Rate Heart Rate [ 68 69 Brachial] Heart Rate [ Radial] Respiratory 20 20 Rate Blood Pressure Blood Pressure 102/50 L 101/47 L [Right Brachial artery] O2 Saturation 92 91 L If not protocol 1 : Oxygen Flow, liters/minute Oxygen O2 Source Room air I&O (Last 24 Hrs): Intake and Output Totals x24h 07/19/23 07/20/23 07/21/23 23:59 23:59 23:59 Intake Total 1500 860 Balance 1500 860 General: Mild distress (c/o weakness R leg and foot, had this starting ~0800 today), Other HEENT: Mucous membr. moist/pink Neck: Supple Neuro: Other (generalized weakness. R leg and foot have 1/5 strength, normal sensation.) Cardiovascular: Regular rate, Other (syst murmur) Respiratory: No respiratory distress Abdomen: Soft Extremities: No edema - Results Results: Laboratory Results WBC 7.5 x10^3/uL (4.8-10.8) 07/20/23 14:22 RBC 5.32 10^6/uL (4.20-5.40) 07/20/23 14:22 Hgb 14.0 g/dL (12.0-16.0) 07/20/23 18:03 Hct 45.2 % (37.0-47.0) 07/20/23 18:03 MCV 97.4 fL (81.0-99.0) 07/20/23 14:22 MCH 29.3 pg (27.0-31.0) 07/20/23 14:22 MCHC 30.1 g/dL (32.0-36.0) L 07/20/23 14:22 RDW 16.7 % (12.0-15.0) H 07/20/23 14:22 Plt Count 136 10^3/uL (130-450) 07/20/23 14:22 MPV 9.6 fL (7.9-10.8) 07/20/23 14:22 Neut # (Auto) 6.2 10^3/uL (1.5-6.6) 07/20/23 14:22 Lymph # (Auto) 0.6 10^3/uL (1.5-3.5) L 07/20/23 14:22 Sumner # (Auto) 0.5 10^3/uL (0.0-1.0) 07/20/23 14:22 Eos # (Auto) 0.1 10^3/uL (0.0-0.7) 07/20/23 14:22 Baso # (Auto) 0.0 10^3/uL (0.0-0.1) 07/20/23 14:22 Absolute Nucleated RBC 0.00 x10^3/uL 07/20/23 14:22 Nucleated RBC % 0.0 /100WBC 07/20/23 14:22 Manual Slide Review Indicated 07/20/23 14:22 Platelet Estimate NORMAL (130-450,000) (NORMAL) 07/20/23 14:22 Sodium 133 mmol/L (135-145) L 07/20/23 14:50 Potassium 3.6 mmol/L (3.5-4.5) 07/20/23 14:50 Chloride 95 mmol/L (101-111) L 07/20/23 14:50 Carbon Dioxide 31 mmol/L (21-32) 07/20/23 14:50 Anion Gap 7.0 (6-13) 07/20/23 14:50 BUN 28 mg/dL (6-20) H 07/20/23 14:50 Creatinine 1.1 mg/dL (0.6-1.3) 07/20/23 14:50 Estimated GFR (MDRD) 48 (>89) L 07/20/23 14:50 Glucose 104 mg/dL (74-104) 07/20/23 14:50 Lactic Acid 1.1 mmol/L (0.5-2.2) 07/20/23 18:03 Calcium 8.4 mg/dL (8.5-10.3) L 07/20/23 14:50 Magnesium 1.9 mg/dL (1.7-2.3) 07/20/23 14:50 Total Bilirubin 0.8 mg/dL (0.2-1.0) 07/20/23 14:50 AST 29 IU/L (10-42) 07/20/23 14:50 ALT 12 IU/L (10-60) 07/20/23 14:50 Alkaline Phosphatase 68 IU/L (42-121) 07/20/23 14:50 Total Protein 6.4 g/dL (6.4-8.9) 07/20/23 14:50 Albumin 3.0 g/dL (3.2-5.5) L 07/20/23 14:50 Globulin 3.4 g/dL (2.1-4.2) 07/20/23 14:50 Albumin/Globulin Ratio 0.9 (1.0-2.2) L 07/20/23 14:50 Lipase 40 U/L (11-82) 07/20/23 14:50 Stl C. diff Tox B Gene POSITIVE (NEGATIVE) A* 07/20/23 16:00 - Procedures Procedures: Procedures EXCISION OF STOMACH, ENDO, DIAGN (03/14/18) EXCISION OF STOMACH, PYLORUS, ENDO, DIAGN (03/14/18) INSPECTION OF LOWER INTESTINAL TRACT, ENDO (03/14/18) TRANSFUSE NONAUT RED BLOOD CELLS IN PERIPH VEIN, PERC (02/15/18)
[2023-07-21] MEDS: SODIUM CHLORIDE 0.9% 1,000 ML IV ONE (16:57)
[2023-07-21] MEDS: D5NS W/20 MEQ KCL 1,000 ML IV SCH (18:06)
--- NOTE | 2023-07-21 19:39 | CT Report ---
PROCEDURE: Head WO INDICATIONS: New R leg and foot weakness, started 10 hrs ago TECHNIQUE: Noncontrast 4.5 mm thick angled axial sections acquired from the foramen magnum to the vertex. For r adiation dose reduction, the following was used: automated exposure control, adjustment of mA and/or kV according to patient size. COMPARISON: None. FINDINGS: Image quality: Excellent. CSF spaces: Basal cisterns are patent. No extra-axial fluid collections. Ventricles are prominent in size but symmetrical in shape. Brain: Subtle small hypodensity in the left basal ganglia. No midline shift. No intracranial masses or hemorrhage. Allred-white matter interface is normal. Mild cerebral volume loss and periventricula r white matter chronic small vessel ischemic changes. Skull and face: Calvarium and visualized facial bones are intact, without suspicious lesions. Sinuses: Visualized sinuses and mastoids are clear. IMPRESSION: 1. Subtle small hypodensity in the left basal ganglia could represent small lacunar infarct of uncert ain chronicity. If clinical symptoms persist, recommend MRI for further evaluation. Reviewed by: Jimenez Parsons MD on 07/21/2023 7:38 PM PST Approved by: Jimenez Parsons MD on 07/21/2023 7:38 PM PST Station ID: [id number]
--- NOTE | 2023-07-21 20:26 | PROVIDER PROGRESS NOTE ---
[employer] Officer Note - [employer] Officer Note [employer] Officer Note: nurse paged Daytime provider ordered PO aspirin 324mg. Pending CT results for possible stroke. Patient family states patient is unable to take blood thinners d/t having esophageal varices. Patient is also positive stool guaiac. chart reviewed. pt hgb has also dropped slightly CT shows acute lacunar infarct. per nurse pt's symptoms persist statin and tele already ordered. will request echo and MRI in am will request neurology consult in view of acute stroke and difficulty antiplatet therapy' discussed with nurse and neuro consult order placed
[2023-07-21] MEDS: PANTOPRAZOLE 40 MG TABLET PO SCH (20:47)
[2023-07-21] MEDS: GABAPENTIN 300 MG CAPSULE PO SCH (20:48)
[2023-07-21] MEDS: ATORVASTATIN 40 MG TABLET PO STA (20:48)
[2023-07-21] MEDS: OMEGA-3 ACID ETHYL ESTERS 1 GM CAPSULE PO SCH (20:48)
[2023-07-21] MEDS ORDERED: OMEGA PO SCH (21:00)
[2023-07-21] MEDS ORDERED: DHA PO SCH (21:00)
[2023-07-21] MEDS ORDERED: FISH OIL PO SCH (21:00)
[2023-07-21] MEDS ORDERED: EPA PO SCH (21:00)
[2023-07-21 21:45] LABS: CALCIUM 7.6 mg/dL (8.5-10.3); CREATININE 1.5 mg/dL (0.6-1.3); POTASSIUM 3.3 mmol/L (3.5-4.5)
[2023-07-21] MEDS: NS W/20 MEQ KCL 1,000 ML IV STA (21:47)
[2023-07-21] MEDS: ASPIRIN CHEW 81 MG TABLET PO STA (21:48)
--- NOTE | 2023-07-21 21:53 | PROVIDER PROGRESS NOTE ---
Computer Repair Technician Note - Computer Repair Technician Note Computer Repair Technician Note: tele-stroke was consulted discussed with nurse Bowden additional recommendations: no antiplatlet at this time due to high rish, GI consult, carotid doppler will continue statin, tele, neurochecks. Echo and MRI ordered. Avoid hypotension, IVF changed to NS Day team to please follow
[2023-07-22 05:49] LABS: MAGNESIUM 1.6 mg/dL (1.7-2.3); PHOSPHORUS 3.2 mg/dL (2.5-5.0)
[2023-07-22 05:53] LABS: CALCIUM 6.8 mg/dL (8.5-10.3); CREATININE 1.6 mg/dL (0.6-1.3); POTASSIUM 3.8 mmol/L (3.5-4.5)
[2023-07-22 06:16] LABS: BASOPHILS % (AUTO) 0.5 %; EOSINOPHILS # (AUTO) 0.2 10^3/uL (0.0-0.7); EOSINOPHILS % (AUTO) 1.9 %; HCT - HEMATOCRIT 39.8 % (37.0-47.0); HGB - HEMOGLOBIN 12.3 g/dL (12.0-16.0); LYMPHOCYTES # (AUTO) 0.5 10^3/uL (1.5-3.5); MEAN CORPUSCULAR HEMOGLOBIN 30.2 pg (27.0-31.0); MEAN CORPUSCULAR HGB CONC 30.9 g/dL (32.0-36.0); MEAN CORPUSCULAR VOLUME 97.8 fL (81.0-99.0); MEAN PLATELET VOLUME 9.7 fL (7.9-10.8); MONOCYTES % (AUTO) 12.2 %; NEUTROPHILS # (AUTO) 6.5 10^3/uL (1.5-6.6); NEUTROPHILS % (AUTO) 79.2 %; PLT - PLATELET COUNT 123 10^3/uL (130-450); RED BLOOD COUNT 4.07 10^6/uL (4.20-5.40); RED CELL DISTRIBUTION WIDTH 17.4 % (12.0-15.0); WHITE BLOOD COUNT 8.2 x10^3/uL (4.8-10.8)
--- NOTE | 2023-07-22 07:23 | PROVIDER PROGRESS NOTE ---
Assessment/Plan - Problem List (1) Lacunar stroke, acute Assessment/Plan: Yesterday evening 07/21/23, the patient reported that she could not move her right foot or right leg for the past 10 hours. Exam showed 0-1/5 strength of R foot and leg. She had a STAT head CT which showed a subacute L lacunar stroke. The night telemedicine doctor was contacted, reviewed the chart, ordered a neurostroke consult. I do not see the neurostroke documentation but recommendations were not to give aspirin because of her history of esophageal varices and melena and a small drop in hemoglobin on labs. She did get po Ator vastatin 80 mg STAT I changed her status from stable to critical Plan: Brain MRI ordered to be done today Carotid Doppler ordered Echo with bubble study ordered and will hopefully be done today She cannot get aspirin or NSAIDs or anticoagulation because of the esophageal varices and heme positive stool Continue with atorvastatin qpm, check lipid panel to determine the dose Continue with neurochecks every 4 hours Will order PT and OT I updated her partner at bedside today (2) Hypotension Qualifiers: Hypotension type: unspecified hypotension type Qualified Code(s): I95.9 - Hypotension, unspecified Assessment/Plan: The low blood pressure was likely from fluid losses from frequent watery BMs plus from BP meds BP was as low as 80 systolic yesterday. All her blood pressure meds have been on hold. She needed saline boluses, IV fluids at 125 cc/h BP improved somewhat to 90- 120 systolic Plan: Will continue iv saline, I will resume IV fluids that came to a stop, as per order by last night's telemedicine doctor If she has persistent hypotension, will transfer to the ICU to begin pressors Improving her BP is important in the face of her acute stroke so that she has better brain perfusion I changed her status from stable to critical (3) C. difficile diarrhea Assessment/Plan: Pt presented with abd pain, several episodes of diarrhea, and tested C diff + She appears dry clinically today w/ dry oral mucosa and sunken eyes and cheeks Plan: Cont IV metronidazole 500 mg q8h and PO vancomycin 500 mg q6h - higher dose regimen was started given associated hypotension Restart/increase her IV fluid rate for hydration. Hold antihypertensives and diuretics, but careful administration of IV fluids Cont Florastor Cont contact isolation (4) Melena Assessment/Plan: Pt had dark stools, and tested guaiac + ER provider discussed this finding with gen surg (see notes, no intervention at this time was the conclusion) Her Hgb did drop, but she has received many L of fluids since admission Plan: Follow Hgb q12-24h Transfuse if hemoglobin less than 7 or if less than 8 with active bleeding I will check her iron panel and give either IV dextran or oral iron if it is indicated (5) Fascioscapulohumeral muscular dystrophy Assessment/Plan: As per Hx. She has caregivers at home all set up 6) Primary biliary cirrhosis She reports that she has had esophageal varices that bled, therefore she must have portal HTN, but she says she gets no ascites. 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 7) Aortic stenosis Her systolic murmur is readily heard. Her last Echo was done in February 2022 and showed mild-moderate . Plan: Echo to be done today as part of stroke evaluation 8) Hx HTN All her blood pressure meds were put on hold because of the current hypotension, which I suspect is from fluid losses in the diarrhea Plan: Continue to hold BP meds - Current Meds Current Meds: Current Medications Generic Name Dose Route Start Last Admin Trade Name Freq PRN Reason Stop Dose Admin Gabapentin 300 mg 07/21/23 21:00 07/21/23 20:48 Gabapentin 300 Mg Capsule PO 300 mg QPM MIGUE Administration Metronidazole 500 mg in 100 mls @ 100 mls/hr 07/21/23 06:00 07/22/23 06:03 Flagyl 500 Mg/100 Ml IV 100 mls/hr Q8H MIGUE Administration Multi-Ingredient Ointment 1 applic 07/21/23 09:00 07/21/23 21:48 Zinc Oxide 20% Oint 30 Gm Tube TOP 1 applic BID MIGUE Administration [id number] Ethyl Esters 1 gm 07/21/23 21:00 07/21/23 20:48 Manley-3 Acid Ethyl Esters 1 Gm Capsule PO 1 gm BID MIGUE Administration Pantoprazole Sodium 40 mg 07/21/23 21:00 07/21/23 20:47 Pantoprazole 40 Mg Tablet PO 40 mg BID MIGUE Administration Saccharomyces Boulardii 500 mg 07/21/23 10:00 07/21/23 16:57 Saccharomyces Boulardii 250 Mg Capsule PO 500 mg BIDWM MIGUE Administration Sodium Chloride 10 ml 07/21/23 01:00 07/21/23 23:54 Sodium Chloride Flush 0.9% 10 Ml Syringe IVP Not Given 0100,0900,1700 MIGUE Ursodiol 500 mg 07/21/23 09:00 07/21/23 20:47 Ursodiol 250 Mg Tablet PO 500 mg BID MIGUE Administration Vancomycin HCl 500 mg 07/21/23 02:00 07/21/23 20:48 Vancomycin 125 Mg Capsule PO 500 mg QID MIGUE Administration - Lab Result Fish Bone Diagrams: 07/22/23 06:10 07/22/23 05:21 - Diagnostic Imaging Results Diagnostic Imaging Results: Final report reviewed - Additional Planning My Orders: My Active Orders 07/21/23 09:00 Zinc Oxide 20% Oint [Zinc Oxide] 1 applic TOP BID 07/21/23 10:00 Saccharomyces Boulardii [Florastor] 500 mg PO BIDWM 07/21/23 19:11 Neuro Check [RC] Q4HR Telemetry- [RC] Q4HR 07/21/23 21:00 Gabapentin [Neurontin] 300 mg PO QPM Manley-3 Acid Ethyl Esters [Lovaza] 1 gm PO BID Pantoprazole [Protonix] 40 mg PO BID 07/22/23 05:00 LIPID Panel [CHEM] Routine 07/22/23 07:00 Echo Complete w/Bubble Study [ECHO] Routine 07/22/23 07:21 Carotid Doppler Complete [US] Routine MAGNESIUM SULFATE 2 GRAMS IV X1 Magnesium Sulfate 2 Gram [Magnesium Sulfate] 2 gm in 50 ml IV ONCE 07/22/23 08:00 NS 0.9% @ 125 mls/hr Sodium Chloride 0.9% [Normal Saline 0.9%] 1,000 ml IV 125 mls/hr 07/22/23 Lunch DIET [Dysphagia - Puree] [DIET] 07/22/23 Dinner DIET [Dysphagia - Minced and Moist] [DIET] 07/23/23 05:00 BMP - BASIC METABOLIC PANEL [CHEM] DAILYLAB CALCIUM [CHEM] DAILYLAB MAGNESIUM [CHEM] DAILYLAB 07/24/23 05:00 BMP - BASIC METABOLIC PANEL [CHEM] DAILYLAB CALCIUM [CHEM] DAILYLAB MAGNESIUM [CHEM] DAILYLAB Subjective - Subjective Patient Reports: Other (Better less volume of diarrhea. Unchanged weakness of R foot and leg.) Objective Vital Signs: Vital Signs - 24 hr 07/21/23 07/21/23 07/21/23 07:33 08:40 13:32 Temperature 36.6 C 36.6 C Heart Rate [ 68 69 Brachial] Heart Rate [ Sitting] Heart Rate [ Supine] Respiratory 20 20 Rate Blood Pressure [Brachial artery] Blood Pressure 102/50 L 101/47 L [Right Brachial artery] Blood Pressure [Sitting] Blood Pressure [Supine] O2 Saturation 92 91 L If not protocol 1 : Oxygen Flow, liters/minute 07/21/23 07/21/23 07/21/23 14:24 14:30 16:05 Temperature 36.6 C Heart Rate [ 67 Brachial] Heart Rate [ 77 77 Sitting] Heart Rate [ 70 70 Supine] Respiratory 20 Rate Blood Pressure 90/43 L [Brachial artery] Blood Pressure 82/43 L [Right Brachial artery] Blood Pressure 121/73 121/73 [Sitting] Blood Pressure 102/46 L 102/46 L [Supine] O2 Saturation 89 L If not protocol : Oxygen Flow, liters/minute 07/21/23 07/21/23 07/21/23 18:18 21:00 21:45 Temperature 36.6 C Heart Rate [ 77 72 Brachial] Heart Rate [ Sitting] Heart Rate [ Supine] Respiratory 14 16 Rate Blood Pressure 121/64 [Brachial artery] Blood Pressure 116/71 [Right Brachial artery] Blood Pressure [Sitting] Blood Pressure [Supine] O2 Saturation 93 97 If not protocol 2 2 2 : Oxygen Flow, liters/minute 07/22/23 07/22/23 00:05 05:00 Temperature 36.6 C 36.6 C Heart Rate [ 68 68 Brachial] Heart Rate [ Sitting] Heart Rate [ Supine] Respiratory 14 12 Rate Blood Pressure 96/49 L [Brachial artery] Blood Pressure 101/46 L [Right Brachial artery] Blood Pressure [Sitting] Blood Pressure [Supine] O2 Saturation 97 98 If not protocol 2 2 : Oxygen Flow, liters/minute Oxygen O2 Source Nasal cannula I&O (Last 24 Hrs): Intake and Output Totals x24h 07/20/23 07/21/23 07/22/23 23:59 23:59 23:59 Intake Total 1500 5010.00 Balance 1500 5010.00 General: Alert, Oriented x3 HEENT: EOMI, Other (Dry oral mucosa. Sunken eyes and sunken cheeks) Neck: Supple, No JVD Neuro: Alert, Focal Deficits (foot and leg 0/5 strength) Cardiovascular: Regular rate, Other (syst murmur) Respiratory: No respiratory distress Abdomen: Normal bowel sounds, Soft Extremities: No clubbing, No edema - Results Results: Laboratory Results WBC 8.2 x10^3/uL (4.8-10.8) 07/22/23 06:10 RBC 4.07 10^6/uL (4.20-5.40) L 07/22/23 06:10 Hgb 12.3 g/dL (12.0-16.0) 07/22/23 06:10 Hct 39.8 % (37.0-47.0) 07/22/23 06:10 MCV 97.8 fL (81.0-99.0) 07/22/23 06:10 MCH 30.2 pg (27.0-31.0) 07/22/23 06:10 MCHC 30.9 g/dL (32.0-36.0) L 07/22/23 06:10 RDW 17.4 % (12.0-15.0) H 07/22/23 06:10 Plt Count 123 10^3/uL (130-450) L 07/22/23 06:10 MPV 9.7 fL (7.9-10.8) 07/22/23 06:10 Neut # (Auto) 6.5 10^3/uL (1.5-6.6) 07/22/23 06:10 Lymph # (Auto) 0.5 10^3/uL (1.5-3.5) L 07/22/23 06:10 White # (Auto) 1.0 10^3/uL (0.0-1.0) 07/22/23 06:10 Eos # (Auto) 0.2 10^3/uL (0.0-0.7) 07/22/23 06:10 Baso # (Auto) 0.0 10^3/uL (0.0-0.1) 07/22/23 06:10 Absolute Nucleated RBC 0.00 x10^3/uL 07/22/23 06:10 Nucleated RBC % 0.0 /100WBC 07/22/23 06:10 Manual Slide Review Indicated 07/20/23 14:22 Platelet Estimate NORMAL (130-450,000) (NORMAL) 07/20/23 14:22 Sodium 133 mmol/L (135-145) L 07/22/23 05:21 Potassium 3.8 mmol/L (3.5-4.5) 07/22/23 05:21 Chloride 102 mmol/L (101-111) 07/22/23 05:21 Carbon Dioxide 24 mmol/L (21-32) 07/22/23 05:21 Anion Gap 7.0 (6-13) 07/22/23 05:21 BUN 37 mg/dL (6-20) H 07/22/23 05:21 Creatinine 1.6 mg/dL (0.6-1.3) H 07/22/23 05:21 Estimated GFR (MDRD) 31 (>89) L 07/22/23 05:21 Glucose 82 mg/dL (74-104) 07/22/23 05:21 Lactic Acid 1.1 mmol/L (0.5-2.2) 07/20/23 18:03 Calcium 6.8 mg/dL (8.5-10.3) L 07/22/23 05:21 Phosphorus 3.2 mg/dL (2.5-5.0) 07/22/23 05:21 Magnesium 1.6 mg/dL (1.7-2.3) L 07/22/23 05:21 Total Bilirubin 0.8 mg/dL (0.2-1.0) 07/20/23 14:50 AST 29 IU/L (10-42) 07/20/23 14:50 ALT 12 IU/L (10-60) 07/20/23 14:50 Alkaline Phosphatase 68 IU/L (42-121) 07/20/23 14:50 Total Protein 6.4 g/dL (6.4-8.9) 07/20/23 14:50 Albumin 3.0 g/dL (3.2-5.5) L 07/20/23 14:50 Globulin 3.4 g/dL (2.1-4.2) 07/20/23 14:50 Albumin/Globulin Ratio 0.9 (1.0-2.2) L 07/20/23 14:50 Lipase 40 U/L (11-82) 07/20/23 14:50 Stl C. diff Tox B Gene POSITIVE (NEGATIVE) A* 07/20/23 16:00 - Procedures Procedures: Procedures EXCISION OF STOMACH, ENDO, DIAGN (03/14/18) EXCISION OF STOMACH, PYLORUS, ENDO, DIAGN (03/14/18) INSPECTION OF LOWER INTESTINAL TRACT, ENDO (03/14/18) TRANSFUSE NONAUT RED BLOOD CELLS IN PERIPH VEIN, PERC (02/15/18)
[2023-07-22 07:48] LABS: CHOL/HDL RATIO 2.9 (<4.4); CHOLESTEROL 138 mg/dL; HDL CHOLESTEROL 48 mg/dL; LDL CHOLESTEROL,CALCULATED 77 mg/dL; LDL/HDL RATIO 1.6 (<4.4); TRIGLYCERIDES 64 mg/dL (48-352); VLDL CHOLESTEROL 13 mg/dL
[2023-07-22] MEDS: MAGNESIUM SULFATE 2 GRAM 2 GM/50 ML BAG IV ONE (07:51)
[2023-07-22] MEDS: SODIUM CHLORIDE 0.9% 1,000 ML IV SCH (09:20)
--- NOTE | 2023-07-22 14:10 | MRI Report ---
PROCEDURE: MRI brain without contrast INDICATIONS: 83-year-old female with one-day history of weakness TECHNIQUE: Multiplanar multisequential MR images of the brain were obtained without contrast COMPARISON: None FINDINGS: CSF Spaces: Basal cisterns are patent. No extra-axial fluid collections. Ventricles are normal in size and shape. Brain: Focal cortical restricted diffusion noted involving the posterior aspect of the left superior frontal gyrus. Additional punctate 1 to 2 mm focus of restricted diffusion noted in the left superio r parietal lobule. No intracranial hemorrhage or mass effect. Age-appropriate atrophy and no significant chronic ischemic change present. There is incidental note of bifrontal subdural hygromas measuring up to 6 mm in thickness. Skull and face: Calvarium has normal marrow signal. Orbits appear normal. Sinuses: Sinuses and mastoids are clear. IMPRESSION: Small subacute infarcts noted in the posterior left frontal lobe. Additional smaller punctate infarct in the left superior parietal cortex. No mass effect or midline shift. Incidental small bifrontal subdural hygromas. No midline shift. Reviewed by: Prem Yepez MD on 07/22/2023 1:09 PM [facility] Approved by: Prem Yepez MD on 07/22/2023 1:09 PM [facility] Station ID: [id number]
[2023-07-22] MEDS: ATORVASTATIN 40 MG TABLET PO SCH (20:18)
--- NOTE | 2023-07-22 21:48 | Ultrasound Report ---
PROCEDURE: Carotid Doppler Complete INDICATIONS: New CVA TECHNIQUE: Color and pulse Doppler interrogation was performed of both carotid systems, with image documentation and velocity measurements. COMPARISON: None. FINDINGS: Right side: Brachial blood pressure: 102/50 mm Hg. Common carotid artery peak systolic velocity: 50 cm/sec. Internal carotid artery peak systolic velocity: 147 cm/sec. Internal carotid artery end diastolic velocity: 48 cm/sec. External carotid artery peak systolic velocity: 100 cm/sec. ICA/CCA peak systolic ratio: 2.9 . Allred scale imaging description: Mild plaque Percent internal carotid artery stenosis: 50-69%. Vertebral artery: Flow direction is antegrade. Left side: Brachial blood pressure: Not obtained . Common carotid artery peak systolic velocity: 57 cm/sec. Internal carotid artery peak systolic velocity: 175 cm/sec. Internal carotid artery end diastolic velocity: 43 cm/sec. External carotid artery peak systolic velocity: 73 cm/sec. ICA/CCA peak systolic ratio: 3.1 . Allred scale imaging description: Moderate plaque Percent internal carotid artery stenosis: 50-69% stenosis. Vertebral artery: Flow direction is antegrade. IMPRESSION: 1. In the right internal carotid artery, there is 50-69% stenosis based on peak systolic velocity cri teria. 2. In the left internal carotid artery, there is 50-69% stenosis based on peak systolic velocity crit eria. 3. Antegrade blood flow within the right vertebral artery. 4. Antegrade blood flow within the left vertebral artery. The estimate of stenosis included in the report of the imaging study was calculated using the [facility]-end orsed standards of carotid artery stenosis. Reviewed by: Dana Oneill MD on 07/22/2023 9:47 PM PST Approved by: Dana Oneill MD on 07/22/2023 9:47 PM PST Station ID: [id number]
[2023-07-23] MEDS: SODIUM CHLORIDE 0.9% 1,000 ML IV SCH ×2 (05:55→09:41)
[2023-07-23 06:12] LABS: CALCIUM 6.9 mg/dL (8.5-10.3); CREATININE 1.5 mg/dL (0.6-1.3); MAGNESIUM 2.1 mg/dL (1.7-2.3); POTASSIUM 3.7 mmol/L (3.5-4.5)
[2023-07-23 09:37] LABS: ABG PH 7.22 (7.35-7.45); ABG PO2 73 mmHg (80-100)
[2023-07-23 09:38] LABS: ABG BASE EXCESS -3.4 mmol/L (-2.0-3.0); ABG HCO3 25.6 mmol/L (22.0-26.0); ABG OXYGEN SATURATION 93 % (94-98); ABG TCO2 27.5 MMOL/L (21.0-29.0); ALLEN TEST POSITIVE
[2023-07-23 09:40] LABS: ABG PCO2 64 mmHg (34-45)
[2023-07-23] MEDS ORDERED: ONDANSETRON 4 MG/2 ML VIAL IVP PRN (11:18)
--- NOTE | 2023-07-23 11:34 | PROVIDER PROGRESS NOTE ---
Subjective - Subjective Pt reports feeling: Worse (Very short of breath this morning.) Objective - Vital Signs/Intake & Output Reviewed Vital Signs: Yes Vital Signs: Vital Signs Pulse 07/23/23 09:57 71 Intake & Output: Intake & Output 07/20/23 07/21/23 07/22/23 07/23/23 23:59 23:59 23:59 23:59 Intake Total 1500 5010.00 2327.067 9732.917 Output Total 120 Balance 1500 5010.00 3124.703 7825.917 - Objective General Appearance: positive: Moderate distress (Tachypneic and appears tired and weak) Eyes Bilateral: positive: No lid inflammation ENT: positive: No signs of dehydration, Other (She is speaking with much effort, appears fatigued) Neck: positive: Nml inspection Respiratory: positive: Rales Cardiovascular: positive: Regular rate & rhythm, Systolic murmur Abdomen: positive: Non-tender, No distention Skin: positive: Dry, Other (Fingers are cool) - Lab Results Fish Bones: 07/23/23 11:46 07/23/23 05:42 Other Labs: Lab Results x24hrs 07/23/23 07/23/23 Range/Units 09:27 05:42 Bld Gas Analysis Time 0933 Sample Site LEFT RADIAL ABG pH 7.22 L (7.35-7.45) ABG pCO2 64 H* (34-45) mmHg ABG pO2 73 L (80-100) mmHg ABG HCO3 25.6 (22.0-26.0) mmol/L ABG Total CO2 27.5 (21.0-29.0) MMOL/L ABG O2 Saturation 93 L (94-98) % ABG Base Excess -3.4 L (-2.0-3.0) mmol/L Jonathan Test POSITIVE O2 Delivery Device NASAL CANNULA O2 Liters/Min 2.00 LPM Sodium 136 (135-145) mmol/L Potassium 3.7 (3.5-4.5) mmol/L Chloride 105 (101-111) mmol/L Carbon Dioxide 26 (21-32) mmol/L Anion Gap 5.0 L (6-13) BUN 38 H (6-20) mg/dL Creatinine 1.5 H (0.6-1.3) mg/dL Estimated GFR (MDRD) 33 L (>89) Glucose 93 (74-104) mg/dL Calcium 6.9 L (8.5-10.3) mg/dL Magnesium 2.1 (1.7-2.3) mg/dL Assessment/Plan - Problem List (1) Acute and chronic respiratory failure with hypoxia Impression: Patient is on home O2 and we continued that here This morning she became tachypneic and desaturated further, needed her O2 increased Plan: Continue giving supplemental O2 and treating the CHF and rest acidosis (see below) Transferred to the ICU to start BiPAP based on her stat ABG that shows respiratory acidosis Today we learned that she uses CPAP at home which was not known until today I updated her DPOA and her other friend in the room to (2) Flash pulm edema After breakfast this morning, she became tachypneic and because of her muscular dystrophy had shallow rapid respiratory rate. A STAT chest x-ray was done that showed pulmonary edema plus bilat pleural effusions She has been about 9 L positive in fluid balance since admission, because fluids are being given for her hypotension and fluid losses from diarrhea. Her Echo, done yesterday to evaluate for cardiac source of embolus for the stroke, showed preserved LVEF and grade 1 diastolic dysfunction Plan: ABG was done showing she is retaining CO2. She needs to be started on BiPAP. I will move her to the ICU Will check troponins x 2 and obtain an EKG>> troponins were "flat" Will stop her IV fluids running at 125 cc an hour Will give morphine prn and will consider giving Lasix if blood pressure can tolerate it BiPAP will also help pulmonary edema (3) Acute CVA Assessment/Plan: On 07/21/23, the patient reported right foot and right leg weakness that she had for 10 hours, before reporting it. Exam did show 0-1/5 strength of R foot and leg. Her head CT showed a subacute L lacunar stroke. Neurostroke documentation not seen, but recommendations were not to give aspirin because of her history of esophageal varices and melena and a small drop in hemoglobin on labs. She did get po Atorvastatin 80 mg STAT and started on nightly Atorvastatin Carotid Doppler showed moderate disease bilaterally Brain MRI was done and showed multiple locations of left-sided subacute strokes, suggesting a shower of emboli. Her Echo was done and showed preserved LVEF, big left atrium, no clots were see n, no intracardiac shunt. Plan: Unfortunately, she cannot get aspirin or NSAIDs or anticoagulation because of the esophageal varices and heme positive stool Continue with atorvastatin qpm Continue with neurochecks every 4 hours Cont to work with PT and OT. I told her she will likely need stroke rehab. I updated her DPOA and friend, outside of the room that this was a dense stroke (4) Hypotension Qualifiers: Hypotension type: unspecified hypotension type Qualified Code(s): I95.9 - Hypotension, unspecified Assessment/Plan: IMPROVED The low blood pressure was likely from fluid losses from frequent watery BMs plus from BP meds BP was as low as 80 systolic yesterday. All her blood pressure meds have been on hold. She needed saline boluses, IV fluids at 125 cc/h BP improved somewhat to 90- 120 systolic Plan: iv fluids need to be stopped today, but I will try to avoid giving Lasix due to low BP Improving her BP is important in the face of her acute stroke so that she has better brain perfusion (5) C. difficile diarrhea Assessment/Plan: Pt presented with abd pain, several episodes of diarrhea, and tested C diff + her stools are starting to form, per RN Plan: Cont IV metronidazole 500 mg q8h and PO vancomycin 500 mg q6h - higher dose regimen was started given associated hypotension Stop her IV fluids. Hold antihypertensives due to low BPs Cont Florastor Cont contact isolation (6) Fascioscapulohumeral muscular dystrophy Assessment/Plan: As per Hx. She has caregivers at home all set up Today we learned that she uses CPAP at home which was not known until today Plan: I ordered CPAP use here (7) Melena Assessment/Plan: Pt had dark stools, and tested guaiac + ER provider discussed this finding with gen surg (see notes, no intervention at this time was the conclusion) Her Hgb did drop, but she has received many L of fluids since admission Plan: Follow Hgb q12-24h Transfuse if hemoglobin less than 7 or if less than 8 with active bleeding I will check her iron panel and give either IV dextran or oral iron if it is indicated (8) Primary biliary cirrhosis She reports that she has had esophageal varices that bled, therefore she must have portal HTN, but she says she gets no ascites. 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 (9) Aortic stenosis Her systolic murmur is readily heard. Her last Echo was done in February 2022 and showed mild-moderate . Echo done to eval for source of emboli showed moderate (10) Hx HTN All her blood pressure meds were put on hold because of the current hypotension, which I suspect is from fluid losses in the diarrhea Plan: Continue to hold BP meds EKG done today which I interpreted: Sinus rhythm, rate 65, first-degree AV bloc k, right bundle branch block. Since EKG from 07/20/2023, similar.
[2023-07-23 11:50] LABS: BASOPHILS % (AUTO) 0.3 %; EOSINOPHILS # (AUTO) 0.2 10^3/uL (0.0-0.7); EOSINOPHILS % (AUTO) 1.6 %; HCT - HEMATOCRIT 42.1 % (37.0-47.0); LYMPHOCYTES # (AUTO) 0.6 10^3/uL (1.5-3.5); MEAN CORPUSCULAR HEMOGLOBIN 30.7 pg (27.0-31.0); MEAN CORPUSCULAR HGB CONC 30.9 g/dL (32.0-36.0); MEAN CORPUSCULAR VOLUME 99.3 fL (81.0-99.0); MEAN PLATELET VOLUME 9.1 fL (7.9-10.8); MONOCYTES # (AUTO) 0.9 10^3/uL (0.0-1.0); MONOCYTES % (AUTO) 9.6 %; NEUTROPHILS # (AUTO) 7.6 10^3/uL (1.5-6.6); NEUTROPHILS % (AUTO) 82.2 %; PLT - PLATELET COUNT 141 10^3/uL (130-450); RED BLOOD COUNT 4.24 10^6/uL (4.20-5.40); RED CELL DISTRIBUTION WIDTH 17.9 % (12.0-15.0); WHITE BLOOD COUNT 9.2 x10^3/uL (4.8-10.8)
--- NOTE | 2023-07-23 12:44 | XRAY Report ---
PROCEDURE: Chest 1V INDICATIONS: severe SOB TECHNIQUE: One view of the chest was acquired. COMPARISON: None FINDINGS: Surgical changes and devices: None. Large bilateral pleural effusions and severe vascular congestion noted. Heart size is enlarged, and l argely obscured by low lung volumes and pleural effusions. Atherosclerotic vascular calcification not ed in the aortic arch. Lung apices are aerated. Osseous structures unremarkable. IMPRESSION: Cardiomegaly and severe vascular congestion associated with large bilateral pleural effusions and low lung volumes Reviewed by: Prem Yepez MD on 07/23/2023 11:43 AM [facility] Approved by: Prem Yepez MD on 07/23/2023 11:43 AM [facility] Station ID: [id number]
[2023-07-23] MEDS: ALPRAZolam 0.25 MG TABLET PO ONE (23:28)
[2023-07-24 04:57] LABS: BASOPHILS % (AUTO) 0.4 %; EOSINOPHILS # (AUTO) 0.2 10^3/uL (0.0-0.7); EOSINOPHILS % (AUTO) 2.9 %; HCT - HEMATOCRIT 44.2 % (37.0-47.0); HGB - HEMOGLOBIN 13.3 g/dL (12.0-16.0); MEAN CORPUSCULAR HGB CONC 30.1 g/dL (32.0-36.0); MEAN CORPUSCULAR VOLUME 99.5 fL (81.0-99.0); MEAN PLATELET VOLUME 10.6 fL (7.9-10.8); MONOCYTES % (AUTO) 11.6 %; NEUTROPHILS % (AUTO) 76.5 %; RED BLOOD COUNT 4.44 10^6/uL (4.20-5.40); RED CELL DISTRIBUTION WIDTH 17.6 % (12.0-15.0); WHITE BLOOD COUNT 8.3 x10^3/uL (4.8-10.8)
[2023-07-24 05:07] LABS: CALCIUM, IONIZED 0.85 mmol/L (1.15-1.33); VBG PH 7.301 (7.31-7.41)
[2023-07-24 05:26] LABS: PLT - PLATELET COUNT 34 10^3/uL (130-450); SLIDE REVIEW? Indicated
[2023-07-24] MEDS: CALCIUM GLUCONATE IN NS 0.9% 2,000 MG/100 ML BAG IV ONE ×2 (06:04→14:22)
[2023-07-24 06:47] LABS: LYMPHOCYTES # (AUTO) 0.6 10^3/uL (1.5-3.5); MONOCYTES # (AUTO) 0.8 10^3/uL (0.0-1.0); NEUTROPHILS # (AUTO) 6.4 10^3/uL (1.5-6.6)
[2023-07-24 06:58] LABS: CREATININE 1.6 mg/dL (0.6-1.3); MAGNESIUM 2.1 mg/dL (1.7-2.3)
[2023-07-24 07:14] LABS: PLATELET ESTIMATE, MANUAL DECREASED (<130,000) (NORMAL); PLATELET MORPHOLOGY NORMAL APPEARANCE (NORMAL)
--- NOTE | 2023-07-24 09:30 | PROVIDER PROGRESS NOTE ---
Subjective - Subjective Pt reports feeling: Improved (She was very lethargic in a.m. until BIPAP was put on her, then awoke and communicative. I ordered an ABG but an arterial sample could not be obtained by RT. It was cancelled when she awoke) Objective - Vital Signs/Intake & Output Reviewed Vital Signs: Yes Vital Signs: Vital Signs Temp Pulse Resp BP Pulse Ox O2 Flow Rate 07/24/23 08:00 36.8 C 67 14 107/55 L 96 07/24/23 07:00 91 19 110/59 L 97 2 07/24/23 06:00 76 19 96/47 L 96 3 Intake & Output: Intake & Output 07/21/23 07/22/23 07/23/23 07/24/23 23:59 23:59 23:59 23:59 Intake Total 5010.00 3758.545 2644.917 1.667 Output Total 120 0 Balance 5010.00 9805.763 1322.917 1.667 - Objective General Appearance: positive: Mild distress (She appears tired, speech is slow) Eyes Bilateral: positive: Other (syelids caked) ENT: positive: No signs of dehydration Neck: positive: Nml inspection Respiratory: positive: Rales Cardiovascular: positive: Regular rate & rhythm (Distant heart sound) Abdomen: positive: Non-tender, No distention Skin: positive: Warm, Dry Extremities: positive: Other (Trace pedal edema) Neurologic/Psychiatric: positive: Oriented x3, Weakness, Other (Right foot and leg have 0/5 strength) - Lab Results Fish Bones: 07/26/23 04:49 07/26/23 04:49 Other Labs: Lab Results x24hrs 07/24/23 07/24/23 07/24/23 Range/Units 06:30 06:30 05:00 WBC (4.8-10.8) x10^3/uL RBC (4.20-5.40) 10^6/uL Hgb (12.0-16.0) g/dL Hct (37.0-47.0) % MCV (81.0-99.0) fL MCH (27.0-31.0) pg MCHC (32.0-36.0) g/dL RDW (12.0-15.0) % Plt Count (130-450) 10^3/uL MPV (7.9-10.8) fL Neut # (Auto) (1.5-6.6) 10^3/uL Lymph # (Auto) (1.5-3.5) 10^3/uL [place] # (Auto) (0.0-1.0) 10^3/uL Eos # (Auto) (0.0-0.7) 10^3/uL Baso # (Auto) (0.0-0.1) 10^3/uL Absolute Nucleated RBC x10^3/uL Nucleated RBC % /100WBC Manual Slide Review Platelet Estimate (NORMAL) Platelet Morphology (NORMAL) Fibrinogen 446 (220-496) mg/dL Bld Gas Analysis Time Sample Site ABG pH (7.35-7.45) ABG pCO2 (34-45) mmHg ABG pO2 (80-100) mmHg ABG HCO3 (22.0-26.0) mmol/L ABG Total CO2 (21.0-29.0) MMOL/L ABG O2 Saturation (94-98) % ABG Base Excess (-2.0-3.0) mmol/L Jonathan Test VBG pH (7.31-7.41) Ionized Calcium (1.15-1.33) mmol/L O2 Delivery Device O2 Liters/Min LPM Sodium 135 (135-145) mmol/L Potassium 4.0 (3.5-4.5) mmol/L Chloride 105 (101-111) mmol/L Carbon Dioxide 26 (21-32) mmol/L Anion Gap 4.0 L (6-13) BUN 36 H (6-20) mg/dL Creatinine 1.6 H (0.6-1.3) mg/dL Estimated GFR (MDRD) 31 L (>89) Glucose 94 (74-104) mg/dL Calcium 7.0 L (8.5-10.3) mg/dL Phosphorus 3.6 (2.5-5.0) mg/dL Magnesium 2.1 (1.7-2.3) mg/dL Iron 81 (50-212) ug/dL TIBC 246 L (250-450) ug/dL % Saturation 33 (20-50) % Transferrin 176 L (203-362) mg/dL Troponin I High Sens (2.3-14.8) ng/L Nasal Screen MRSA (PCR) (NEGATIVE) 07/24/23 07/24/23 07/23/23 Range/Units 05:00 04:44 15:20 WBC 8.3 (4.8-10.8) x10^3/uL RBC 4.44 (4.20-5.40) 10^6/uL Hgb 13.3 (12.0-16.0) g/dL Hct 44.2 (37.0-47.0) % MCV 99.5 H (81.0-99.0) fL MCH 30.0 (27.0-31.0) pg MCHC 30.1 L (32.0-36.0) g/dL RDW 17.6 H (12.0-15.0) % Plt Count 34 L* (130-450) 10^3/uL MPV 10.6 (7.9-10.8) fL Neut # (Auto) 6.4 (1.5-6.6) 10^3/uL Lymph # (Auto) 0.6 L (1.5-3.5) 10^3/uL [place] # (Auto) 0.8 (0.0-1.0) 10^3/uL Eos # (Auto) 0.2 (0.0-0.7) 10^3/uL Baso # (Auto) 0.0 (0.0-0.1) 10^3/uL Absolute Nucleated RBC 0.00 x10^3/uL Nucleated RBC % 0.0 /100WBC Manual Slide Review Indicated Platelet Estimate DECREASED (<130,000) (NORMAL) Platelet Morphology NORMAL APPEARANCE (NORMAL) Fibrinogen (220-496) mg/dL Bld Gas Analysis Time Sample Site ABG pH (7.35-7.45) ABG pCO2 (34-45) mmHg ABG pO2 (80-100) mmHg ABG HCO3 (22.0-26.0) mmol/L ABG Total CO2 (21.0-29.0) MMOL/L ABG O2 Saturation (94-98) % ABG Base Excess (-2.0-3.0) mmol/L Jonathan Test VBG pH 7.301 L (7.31-7.41) Ionized Calcium 0.85 L (1.15-1.33) mmol/L O2 Delivery Device O2 Liters/Min LPM Sodium (135-145) mmol/L Potassium (3.5-4.5) mmol/L Chloride (101-111) mmol/L Carbon Dioxide (21-32) mmol/L Anion Gap (6-13) BUN (6-20) mg/dL Creatinine (0.6-1.3) mg/dL Estimated GFR (MDRD) (>89) Glucose (74-104) mg/dL Calcium (8.5-10.3) mg/dL Phosphorus (2.5-5.0) mg/dL Magnesium (1.7-2.3) mg/dL Iron (50-212) ug/dL TIBC (250-450) ug/dL % Saturation (20-50) % Transferrin (203-362) mg/dL Troponin I High Sens 41.0 H* (2.3-14.8) ng/L Nasal Screen MRSA (PCR) (NEGATIVE) 07/23/23 07/23/23 07/23/23 Range/Units 11:46 11:46 11:20 WBC 9.2 (4.8-10.8) x10^3/uL RBC 4.24 (4.20-5.40) 10^6/uL Hgb 13.0 (12.0-16.0) g/dL Hct 42.1 (37.0-47.0) % MCV 99.3 H (81.0-99.0) fL MCH 30.7 (27.0-31.0) pg MCHC 30.9 L (32.0-36.0) g/dL RDW 17.9 H (12.0-15.0) % Plt Count 141 (130-450) 10^3/uL MPV 9.1 (7.9-10.8) fL Neut # (Auto) 7.6 H (1.5-6.6) 10^3/uL Lymph # (Auto) 0.6 L (1.5-3.5) 10^3/uL [place] # (Auto) 0.9 (0.0-1.0) 10^3/uL Eos # (Auto) 0.2 (0.0-0.7) 10^3/uL Baso # (Auto) 0.0 (0.0-0.1) 10^3/uL Absolute Nucleated RBC 0.00 x10^3/uL Nucleated RBC % 0.0 /100WBC Manual Slide Review Platelet Estimate (NORMAL) Platelet Morphology (NORMAL) Fibrinogen (220-496) mg/dL Bld Gas Analysis Time Sample Site ABG pH (7.35-7.45) ABG pCO2 (34-45) mmHg ABG pO2 (80-100) mmHg ABG HCO3 (22.0-26.0) mmol/L ABG Total CO2 (21.0-29.0) MMOL/L ABG O2 Saturation (94-98) % ABG Base Excess (-2.0-3.0) mmol/L Jonathan Test VBG pH (7.31-7.41) Ionized Calcium (1.15-1.33) mmol/L O2 Delivery Device O2 Liters/Min LPM Sodium (135-145) mmol/L Potassium (3.5-4.5) mmol/L Chloride (101-111) mmol/L Carbon Dioxide (21-32) mmol/L Anion Gap (6-13) BUN (6-20) mg/dL Creatinine (0.6-1.3) mg/dL Estimated GFR (MDRD) (>89) Glucose (74-104) mg/dL Calcium (8.5-10.3) mg/dL Phosphorus (2.5-5.0) mg/dL Magnesium (1.7-2.3) mg/dL Iron (50-212) ug/dL TIBC (250-450) ug/dL % Saturation (20-50) % Transferrin (203-362) mg/dL Troponin I High Sens 31.2 H* (2.3-14.8) ng/L Nasal Screen MRSA (PCR) NEGATIVE (NEGATIVE) 07/23/23 Range/Units 09:27 WBC (4.8-10.8) x10^3/uL RBC (4.20-5.40) 10^6/uL Hgb (12.0-16.0) g/dL Hct (37.0-47.0) % MCV (81.0-99.0) fL MCH (27.0-31.0) pg MCHC (32.0-36.0) g/dL RDW (12.0-15.0) % Plt Count (130-450) 10^3/uL MPV (7.9-10.8) fL Neut # (Auto) (1.5-6.6) 10^3/uL Lymph # (Auto) (1.5-3.5) 10^3/uL [place] # (Auto) (0.0-1.0) 10^3/uL Eos # (Auto) (0.0-0.7) 10^3/uL Baso # (Auto) (0.0-0.1) 10^3/uL Absolute Nucleated RBC x10^3/uL Nucleated RBC % /100WBC Manual Slide Review Platelet Estimate (NORMAL) Platelet Morphology (NORMAL) Fibrinogen (220-496) mg/dL Bld Gas Analysis Time 0933 Sample Site LEFT RADIAL ABG pH 7.22 L (7.35-7.45) ABG pCO2 64 H* (34-45) mmHg ABG pO2 73 L (80-100) mmHg ABG HCO3 25.6 (22.0-26.0) mmol/L ABG Total CO2 27.5 (21.0-29.0) MMOL/L ABG O2 Saturation 93 L (94-98) % ABG Base Excess -3.4 L (-2.0-3.0) mmol/L Jonathan Test POSITIVE VBG pH (7.31-7.41) Ionized Calcium (1.15-1.33) mmol/L O2 Delivery Device NASAL CANNULA O2 Liters/Min 2.00 LPM Sodium (135-145) mmol/L Potassium (3.5-4.5) mmol/L Chloride (101-111) mmol/L Carbon Dioxide (21-32) mmol/L Anion Gap (6-13) BUN (6-20) mg/dL Creatinine (0.6-1.3) mg/dL Estimated GFR (MDRD) (>89) Glucose (74-104) mg/dL Calcium (8.5-10.3) mg/dL Phosphorus (2.5-5.0) mg/dL Magnesium (1.7-2.3) mg/dL Iron (50-212) ug/dL TIBC (250-450) ug/dL % Saturation (20-50) % Transferrin (203-362) mg/dL Troponin I High Sens (2.3-14.8) ng/L Nasal Screen MRSA (PCR) (NEGATIVE) Assessment/Plan - Problem List (1) Acute and chronic respiratory failure with hypoxia Impression: Patient is on home O2 and we continued that here On 07/23/23 she became tachypneic and desaturated further, needed to be put in ICU on new BIPAP. Cause was pulm edema We also learned on 07/23/23 that she uses CPAP at home which was not known. She was very lethargic this a.m. until BIPAP was put on her, then awoke and communicative. I ordered an ABG but an arterial sample could not be obtained by RT. It was cancelled when she awoke Plan: Continue giving supplemental O2 and treating the CHF and rest acidosis (see below) I updated her DPOA and her other friend in the room (2) Flash pulm edema On 07/23/23, she became tachypneic and had shallow rapid respiratory rate. A STAT chest x-ray was done that showed pulmonary edema plus bilat pleural effusions She is about 9 L positive in fluid balance since admission, because fluids were being given for her hypotension and fluid losses from diarrhea. Her Echo, to evaluate for cardiac source of embolus for the stroke, showed preserved LVEF and grade 1 diastolic dysfunction. I checked her troponins x 2 and they were "flat", also EKG had no new changes ABG was done showing she was retaining CO2. She was transferred to ICU and started on BiPAP. Since her BP was ":soft", no Lasix was given, but we stopped the iv fluids going at 125 cc/hr Plan: Will give iv Albumen today and iv Lasix x1 Cont BiPAP, which will also help pulmonary edema (3) Thrombocytopenia Plt count dropped from normal to 34K today She does have petechial hemorrhages, seen on knees Plan: Will check her INR and fibrinogen to evaluate for DIC Will repeat her CBC in a few hours to assure this was not a lab error Watch very carefully for bleeding since she will need platelet transfusion if bleeding. Follow-up platelet count several times a day and give platelet transfusion if drops less than 10 (4) Acute CVA Assessment/Plan: On 07/21/23, the patient reported right foot and right leg weakness that she had for 10 hours, before reporting it. Exam did show 0-1/5 strength of R foot and leg. Her head CT showed a subacute L lacunar stroke. Neurostroke documentation not seen, but recommendations were not to give aspirin because of her history of esophageal varices and melena and a small drop in hemoglobin on labs. She did get po Atorvastatin 80 mg STAT and started on nightly Atorvastatin Carotid Doppler showed moderate disease bilaterally Brain MRI was done and showed multiple locations of left-sided subacute strokes, suggesting a shower of emboli. Her Echo was done and showed preserved LVEF, big left atrium, no clots were seen, no intracardiac shunt. Plan: Unfortunately, she cannot get aspirin or NSAIDs or anticoagulation because of the esophageal varices and heme positive stool Continue with atorvastatin qpm Continue with neurochecks every 4 hours Cont to work with PT and OT. I told her she will likely need stroke rehab. I updated her DPOA and friend, outside of the room that this was a dense stroke (5) Hypotension Qualifiers: Hypotension type: unspecified hypotension type Qualified Code(s): I95.9 - Hypotension, unspecified Assessment/Plan: IMPROVED The low blood pressure was likely from fluid losses from frequent watery BMs plus from BP meds BP was as low as 80 systolic yesterday. All her blood pressure meds have been on hold. She needed saline boluses, IV fluids at 125 cc/h BP improved somewhat to 90- 120 systolic Plan: iv fluids need to be stopped today, but I will try to avoid giving Lasix due to low BP Improving her BP is important in the face of her acute stroke so that she has better brain perfusion (6) C. difficile diarrhea Assessment/Plan: Pt presented with abd pain, several episodes of diarrhea, and tested C diff + her stools are starting to form, per RN Plan: Cont IV metronidazole 500 mg q8h and PO vancomycin 500 mg q6h - higher dose regimen was started given associated hypotension Stop her IV fluids. Hold antihypertensives due to low BPs Cont Florastor Cont contact isolation (7) Conjunctivitis RN noticed that she has bilateral green dried secretions on her eyelids and slight scleral redness Plan: Will order twice daily gentamicin eyedrops (8) Melena Assessment/Plan: Pt had dark stools, and tested guaiac + ER provider discussed this finding with gen surg (see notes, no intervention at this time was the conclusion) Her Hgb did drop, but she has received many L of fluids since admission Plan: Follow Hgb q12-24h Transfuse if hemoglobin less than 7 or if less than 8 with active bleeding I will check her iron panel and give either IV dextran or oral iron if it is indicated (9) Fascioscapulohumeral muscular dystrophy Assessment/Plan: As per Hx. She has caregivers at home all set up We learned that she uses CPAP at home which was not known until 07/23/23 She was very lethargic this a.m. until BIPAP was put on her, then awoke and communicative. I ordered an ABG but an arterial sample could not be obtained by RT. It was cancelled when she awoke Plan: I ordered CPAP use here (10) Primary biliary cirrhosis She reports that she has had esophageal varices that bled, therefore she must have portal HTN, but she says she gets no ascites. 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 (11) Aortic stenosis Her systolic murmur is readily heard. Her last Echo was done in February 2022 and showed mild-moderate . Echo done to eval for source of emboli showed moderate (12) Hx HTN All her blood pressure meds were put on hold because of the current hypotension, which I suspect is from fluid losses in the diarrhea Plan: Continue to hold BP meds
--- NOTE | 2023-07-24 10:26 | XRAY Report ---
PROCEDURE: Chest 1V INDICATIONS: SOB TECHNIQUE: One view of the chest was acquired. COMPARISON: 07/23/2023 FINDINGS: Surgical changes and devices: None. Lungs and pleura: Large bilateral pleural effusions again noted, obscuring the lung bases. No pneumo thorax Mediastinum: Mediastinal contours appear normal. Heart size is enlarged. Mild improvement in vascul ar congestion. Bones and chest wall: No suspicious bony lesions. Overlying soft tissues appear unremarkable. IMPRESSION: Cardiomegaly and improving vascular congestion. Stable bibasilar pleural effusions Reviewed by: Prem Yepez MD on 07/24/2023 9:24 AM [facility] Approved by: Prem Yepez MD on 07/24/2023 9:24 AM [facility] Station ID: [id number]
[2023-07-24] MEDS: ALBUMIN 25% 12.5 GM/50 ML VIAL IV SCH (11:26)
[2023-07-24 12:18] LABS: CALCIUM, IONIZED 0.98 mmol/L (1.15-1.33); HGB - HEMOGLOBIN 12.1 g/dL (12.0-16.0); MEAN CORPUSCULAR HEMOGLOBIN 30.9 pg (27.0-31.0); MEAN CORPUSCULAR VOLUME 99.5 fL (81.0-99.0); MEAN PLATELET VOLUME 9.8 fL (7.9-10.8); RED BLOOD COUNT 3.92 10^6/uL (4.20-5.40); RED CELL DISTRIBUTION WIDTH 17.6 % (12.0-15.0); VBG PH 7.333 (7.31-7.41); WHITE BLOOD COUNT 7.3 x10^3/uL (4.8-10.8)
[2023-07-24 12:30] LABS: INR 1.1 (0.8-1.2); PT - PROTHROMBIN TIME 11.6 secs (9.9-12.6)
[2023-07-24] MEDS: SODIUM CHLORIDE FLUSH 0.9% 10 ML SYRINGE IVP PRN (12:35)
[2023-07-24] MEDS: FUROSEMIDE 40 MG/4 ML VIAL IVP SCH (13:01)
[2023-07-24] MEDS: GENTAMICIN 0.3% OPHTH DROPS EACHEYE SCH (14:22)
[2023-07-24 17:05] LABS: CALCIUM, IONIZED 1.06 mmol/L (1.15-1.33); VBG PH 7.264 (7.31-7.41)
[2023-07-24] MEDS: CALCIUM GLUC 1,000MG/50ML-NACL 1,000 MG/50 ML BAG IV ONE (17:46)
[2023-07-24 21:58] LABS: CALCIUM, IONIZED 1.09 mmol/L (1.15-1.33); VBG PH 7.296 (7.31-7.41)
[2023-07-25 04:55] LABS: BASOPHILS % (AUTO) 0.6 %; EOSINOPHILS # (AUTO) 0.1 10^3/uL (0.0-0.7); EOSINOPHILS % (AUTO) 1.9 %; HCT - HEMATOCRIT 38.8 % (37.0-47.0); HGB - HEMOGLOBIN 12.1 g/dL (12.0-16.0); LYMPHOCYTES # (AUTO) 0.4 10^3/uL (1.5-3.5); LYMPHOCYTES % (AUTO) 6.4 %; MEAN CORPUSCULAR HEMOGLOBIN 30.4 pg (27.0-31.0); MEAN CORPUSCULAR HGB CONC 31.2 g/dL (32.0-36.0); MEAN CORPUSCULAR VOLUME 97.5 fL (81.0-99.0); MEAN PLATELET VOLUME 9.5 fL (7.9-10.8); MONOCYTES # (AUTO) 0.8 10^3/uL (0.0-1.0); NEUTROPHILS # (AUTO) 5.2 10^3/uL (1.5-6.6); NEUTROPHILS % (AUTO) 78.5 %; PLT - PLATELET COUNT 105 10^3/uL (130-450); RED BLOOD COUNT 3.98 10^6/uL (4.20-5.40); RED CELL DISTRIBUTION WIDTH 17.2 % (12.0-15.0); WHITE BLOOD COUNT 6.7 x10^3/uL (4.8-10.8)
[2023-07-25 05:21] LABS: PHOSPHORUS 3.1 mg/dL (2.5-5.0)
[2023-07-25 05:24] LABS: ALBUMIN 3.1 g/dL (3.2-5.5); BILIRUBIN,TOTAL 0.5 mg/dL (0.2-1.0); CALCIUM 8.4 mg/dL (8.5-10.3); CREATININE 1.5 mg/dL (0.6-1.3); TOTAL PROTEIN 6.1 g/dL (6.4-8.9)
[2023-07-25] MEDS: CALCIUM CARBONATE CHEW 500 MG TABLET PO SCH (06:02)
[2023-07-25] MEDS: FUROSEMIDE 40 MG/4 ML VIAL IVP STA (11:39)
[2023-07-25 15:02] LABS: CALCIUM, IONIZED 1.11 mmol/L (1.15-1.33); VBG PH 7.317 (7.31-7.41)
[2023-07-25 15:22] LABS: MAGNESIUM 1.9 mg/dL (1.7-2.3); POTASSIUM 4.2 mmol/L (3.5-4.5)
--- NOTE | 2023-07-25 18:47 | PROVIDER PROGRESS NOTE ---
Subjective - Subjective Pt reports feeling: Improved (Strength is better but she is becoming frustrated that she has not been OOB in nearly 3 days (whih was due to hypotension then due to pulmonary edema)) Objective - Vital Signs/Intake & Output Reviewed Vital Signs: Yes Vital Signs: Vital Signs Temp Pulse Resp BP Pulse Ox O2 Flow Rate 07/25/23 17:00 36.9 C 79 18 135/63 H 97 2 07/25/23 15:00 2 Intake & Output: Intake & Output 07/22/23 07/23/23 07/24/23 07/25/23 23:59 23:59 23:59 23:59 Intake Total 3766.921 9731.917 1156.000 437 Output Total 120 0 1135 2115 Balance 6601.878 9150.917 21.000 -1678 - Objective General Appearance: positive: Mild distress (Frustrated. Appears generally weak and tired) Eyes Bilateral: positive: EOMI, Other (lids have caked compound) ENT: positive: ENT inspection nml, No signs of dehydration Neck: positive: Nml inspection Respiratory: positive: Rales (Right base) Cardiovascular: positive: Regular rate & rhythm, Systolic murmur Abdomen: positive: Non-tender, Nml bowel sounds, No distention Skin: positive: Warm, Dry, Other (Petechial bruise on knees) Extremities: positive: Other (1+ pedal edema) Neurologic/Psychiatric: positive: Oriented x3, CN's nml (2-12) (But speech is slow from generalized weakness), Other (Right foot and right leg have 0/5 strength) - Lab Results Fish Bones: 07/27/23 04:35 07/27/23 04:35 Other Labs: Lab Results x24hrs 07/25/23 07/25/23 07/25/23 Range/Units 14:55 14:55 14:55 WBC (4.8-10.8) x10^3/uL RBC (4.20-5.40) 10^6/uL Hgb (12.0-16.0) g/dL Hct (37.0-47.0) % MCV (81.0-99.0) fL MCH (27.0-31.0) pg MCHC (32.0-36.0) g/dL RDW (12.0-15.0) % Plt Count (130-450) 10^3/uL MPV (7.9-10.8) fL Neut # (Auto) (1.5-6.6) 10^3/uL Lymph # (Auto) (1.5-3.5) 10^3/uL [place] # (Auto) (0.0-1.0) 10^3/uL Eos # (Auto) (0.0-0.7) 10^3/uL Baso # (Auto) (0.0-0.1) 10^3/uL Absolute Nucleated RBC x10^3/uL Nucleated RBC % /100WBC VBG pH 7.317 (7.31-7.41) Ionized Calcium 1.11 L (1.15-1.33) mmol/L Sodium (135-145) mmol/L Potassium 4.2 (3.5-4.5) mmol/L Chloride (101-111) mmol/L Carbon Dioxide (21-32) mmol/L Anion Gap (6-13) BUN (6-20) mg/dL Creatinine (0.6-1.3) mg/dL Estimated GFR (MDRD) (>89) Glucose (74-104) mg/dL Calcium (8.5-10.3) mg/dL Phosphorus 2.8 (2.5-5.0) mg/dL Magnesium 1.9 (1.7-2.3) mg/dL Total Bilirubin (0.2-1.0) mg/dL AST (10-42) IU/L ALT (10-60) IU/L Alkaline Phosphatase (42-121) IU/L Total Protein (6.4-8.9) g/dL Albumin (3.2-5.5) g/dL Globulin (2.1-4.2) g/dL Albumin/Globulin Ratio (1.0-2.2) 07/25/23 07/25/23 07/24/23 Range/Units 04:47 04:30 21:48 WBC 6.7 (4.8-10.8) x10^3/uL RBC 3.98 L (4.20-5.40) 10^6/uL Hgb 12.1 (12.0-16.0) g/dL Hct 38.8 (37.0-47.0) % MCV 97.5 (81.0-99.0) fL MCH 30.4 (27.0-31.0) pg MCHC 31.2 L (32.0-36.0) g/dL RDW 17.2 H (12.0-15.0) % Plt Count 105 L (130-450) 10^3/uL MPV 9.5 (7.9-10.8) fL Neut # (Auto) 5.2 (1.5-6.6) 10^3/uL Lymph # (Auto) 0.4 L (1.5-3.5) 10^3/uL [place] # (Auto) 0.8 (0.0-1.0) 10^3/uL Eos # (Auto) 0.1 (0.0-0.7) 10^3/uL Baso # (Auto) 0.0 (0.0-0.1) 10^3/uL Absolute Nucleated RBC 0.00 x10^3/uL Nucleated RBC % 0.0 /100WBC VBG pH 7.296 L (7.31-7.41) Ionized Calcium 1.09 L (1.15-1.33) mmol/L Sodium 137 (135-145) mmol/L Potassium 4.0 (3.5-4.5) mmol/L Chloride 105 (101-111) mmol/L Carbon Dioxide 27 (21-32) mmol/L Anion Gap 5.0 L (6-13) BUN 38 H (6-20) mg/dL Creatinine 1.5 H (0.6-1.3) mg/dL Estimated GFR (MDRD) 33 L (>89) Glucose 100 (74-104) mg/dL Calcium 8.4 L (8.5-10.3) mg/dL Phosphorus 3.1 (2.5-5.0) mg/dL Magnesium 2.0 (1.7-2.3) mg/dL Total Bilirubin 0.5 (0.2-1.0) mg/dL AST 19 (10-42) IU/L ALT 8 L (10-60) IU/L Alkaline Phosphatase 56 (42-121) IU/L Total Protein 6.1 L (6.4-8.9) g/dL Albumin 3.1 L (3.2-5.5) g/dL Globulin 3.0 (2.1-4.2) g/dL Albumin/Globulin Ratio 1.0 (1.0-2.2) Assessment/Plan - Problem List (1) Acute and chronic respiratory failure with hypoxia Impression: Patient is on home O2 and we continued that here On 07/23/23 she became tachypneic and desaturated further, needed to be put in ICU on new BIPAP. Cause was pulm edema We also learned on 07/23/23 that she uses CPAP at home which was not known. She was very lethargic this a.m. until BIPAP was put on her, then awoke and communicative. I ordered an ABG but an arterial sample could not be obtained by RT. It was cancelled when she awoke Plan: Continue giving supplemental O2 and treating the CHF and rest acidosis (see below) I updated her DPOA in the room today (2) Flash pulm edema On 07/23/23, she became tachypneic and had shallow rapid respiratory rate. A STAT chest x-ray was done that showed pulmonary edema plus bilat pleural effusions She is about 9 L positive in fluid balance since admission, because fluids were being given for her hypotension and fluid losses from diarrhea. Her Echo, to evaluate for cardiac source of embolus for the stroke, showed preserved LVEF and grade 1 diastolic dysfunction. I checked her troponins x 2 and they were "flat", also EKG had no new changes ABG was done showing she was retaining CO2. She was transferred to ICU and started on BiPAP. Since her BP was ":soft", no Lasix was given, but we stopped the iv fluids going at 125 cc/hr Plan: Will give iv iv Lasix x1 more today Cont BiPAP, which will also help pulmonary edema (3) Acute CVA Assessment/Plan: On 07/21/23, the patient reported right foot and right leg weakness that she had for 10 hours, before reporting it. Exam did show 0-1/5 strength of R foot and leg. Her head CT showed a subacute L lacunar stroke. Neurostroke documentation not seen, but recommendations were not to give aspirin because of her history of esophageal varices and melena and a small drop in hemoglobin on labs. She did get po Atorvastatin 80 mg STAT and started on night ly Atorvastatin Carotid Doppler showed moderate disease bilaterally Brain MRI was done and showed multiple locations of left-sided subacute strokes, suggesting a shower of emboli. Her Echo was done and showed preserved LVEF, big left atrium, no clots were seen, no intracardiac shunt. Plan: Unfortunately, she cannot get aspirin or NSAIDs or anticoagulation because of the esophageal varices and heme positive stool Continue with atorvastatin qpm Continue with neurochecks every 4 hours Cont to work with PT and OT. I told her she will likely need stroke rehab. I updated her DPOA at bedside (4) Hypotension Qualifiers: Hypotension type: unspecified hypotension type Qualified Code(s): I95.9 - Hypotension, unspecified Assessment/Plan: IMPROVED The low blood pressure was likely from fluid losses from frequent watery BMs plus from BP meds BP was as low as 80 systolic yesterday. All her blood pressure meds have been on hold. She needed saline boluses, IV fluids at 125 cc/h BP improved somewhat to 90- 120 systolic Plan: iv fluids need to be stopped today, but I will try to avoid giving Lasix due to low BP Improving her BP is important in the face of her acute stroke so that she has better brain perfusion (5) C. difficile diarrhea Assessment/Plan: Pt presented with abd pain, several episodes of diarrhea, and tested C diff + her stools are starting to form, per RN Plan: Cont IV metronidazole 500 mg q8h and PO vancomycin 500 mg q6h - higher dose regimen was started given associated hypotension Stop her IV fluids. Hold antihypertensives due to low BPs Cont Florastor Cont contact isolation (6) Conjunctivitis Assessment/Plan: RN noticed that she has bilateral green dried secretions on her eyelids and slight scleral redness Plan: Will order twice daily gentamicin eyedrops (7) Melena Assessment/Plan: Pt had dark stools, and tested guaiac + ER provider discussed this finding with gen surg (see notes, no intervention at this time was the conclusion) Her Hgb did drop, but she has received many L of fluids since admission Plan: Follow Hgb q12-24h Transfuse if hemoglobin less than 7 or if less than 8 with active bleeding I will check her iron panel and give either IV dextran or oral iron if it is indicated (8) Fascioscapulohumeral muscular dystrophy Assessment/Plan: As per Hx. She has caregivers at home all set up We learned that she uses CPAP at home which was not known until 07/23/23 She was very lethargic this a.m. until BIPAP was put on her, then awoke and communicative. I ordered an ABG but an arterial sample could not be obtained by RT. It was cancelled when she awoke Plan: I ordered CPAP use here (9) Primary biliary cirrhosis She reports that she has had esophageal varices that bled, therefore she must have portal HTN, but she says she gets no ascites. 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 (10) Aortic stenosis Her systolic murmur is readily heard. Her last Echo was done in February 2022 and showed mild-moderate . Echo done to eval for source of emboli showed moderate (11) Hx HTN All her blood pressure meds were put on hold because of the current hypotension, which I suspect is from fluid losses in the diarrhea Plan: Continue to hold BP meds (12) Thrombocytopenia Plt count dropped from normal to 34K, she does have petechial hemorrhages, seen on knees Check for DIC but her fibrinogen level was normal I reviewed The platelets in several hours and it went up to normal range therefore this was probably a lab error Plan: Follow CBC daily
[2023-07-26 05:45] LABS: BASOPHILS % (AUTO) 0.6 %; EOSINOPHILS # (AUTO) 0.1 10^3/uL (0.0-0.7); EOSINOPHILS % (AUTO) 1.8 %; HCT - HEMATOCRIT 39.4 % (37.0-47.0); HGB - HEMOGLOBIN 12.4 g/dL (12.0-16.0); LYMPHOCYTES # (AUTO) 0.4 10^3/uL (1.5-3.5); MEAN CORPUSCULAR HEMOGLOBIN 30.9 pg (27.0-31.0); MEAN CORPUSCULAR HGB CONC 31.5 g/dL (32.0-36.0); MEAN CORPUSCULAR VOLUME 98.3 fL (81.0-99.0); MEAN PLATELET VOLUME 9.9 fL (7.9-10.8); MONOCYTES # (AUTO) 0.6 10^3/uL (0.0-1.0); NEUTROPHILS # (AUTO) 3.9 10^3/uL (1.5-6.6); NEUTROPHILS % (AUTO) 78.4 %; PLT - PLATELET COUNT 99 10^3/uL (130-450); RED BLOOD COUNT 4.01 10^6/uL (4.20-5.40); RED CELL DISTRIBUTION WIDTH 16.9 % (12.0-15.0)
[2023-07-26 05:58] LABS: BILIRUBIN,TOTAL 0.6 mg/dL (0.2-1.0); CALCIUM 8.5 mg/dL (8.5-10.3); CREATININE 1.2 mg/dL (0.6-1.3); MAGNESIUM 1.7 mg/dL (1.7-2.3); POTASSIUM 3.6 mmol/L (3.5-4.5); TOTAL PROTEIN 6.1 g/dL (6.4-8.9)
[2023-07-26 06:07] LABS: CALCIUM, IONIZED 1.11 mmol/L (1.15-1.33); VBG PH 7.337 (7.31-7.41)
[2023-07-26] MEDS: NEUTRA-PHOS 250 MG TABLET PO SCH (09:32)
[2023-07-26] MEDS: MAGNESIUM OXIDE 400 MG TABLET PO ONE (09:32)
[2023-07-26] MEDS: MULTIVITAMIN W/MINERALS TABLET PO SCH (09:36)
[2023-07-26] MEDS: CALCIUM GLUC 1,000MG/50ML-NACL 1,000 MG/50 ML BAG IV ONE (11:43)
[2023-07-26] MEDS: VANCOMYCIN 125 MG CAPSULE PO SCH (12:17)
--- NOTE | 2023-07-26 17:41 | PROVIDER PROGRESS NOTE ---
Assessment/Plan - Problem List (1) Acute and chronic respiratory failure with hypoxia Assessment/Plan: Patient is on home O2 and we continued that here On 07/23/23 she became tachypneic and desaturated further, needed to be put in ICU on new BIPAP. Cause was pulm edema We also learned on 07/23/23 that she uses CPAP at home which was not known. She can get lethargic until BIPAP is put on her, then improves and communicates. Plan: Continue giving supplemental O2 via n.c. and using her home CPAP machine. BIPAP can be resumed if it is again needed (2) Flash pulm edema RESOLVED On 07/23/23, she became tachypneic and had shallow rapid respiratory rate. A STAT chest x-ray was done that showed pulmonary edema plus bilat pleural effusions. She was about 9 L positive in fluid balance, because fluids were being given for her hypotension and fluid losses from diarrhea. ABG was done showing she was retaining CO2. She was then transferred to ICU and started on BiPAP. I checked her troponins x 2 and they were "flat", also EKG had no new changes Her Echo, to evaluate for cardiac source of embolus for the stroke had already been done, and it showed preserved LVEF and grade 1 diastolic dysfunction. She received iv Lasix for 2 days only, so as not to cause hypotension again Plan: She can be moved out of ICU today Using BiPAP also helps treat pulmonary edema (3) Acute CVA Assessment/Plan: On 07/21/23, the patient reported right foot and right leg weakness, that she had for 10 hours before reporting it. Exam did show 0-1/5 strength of R foot and leg. Her head CT showed a subacute L lacunar stroke. Neurostroke was requested, their documentation is not seen, but recommendations were not to give aspirin because of her history of esophageal varices and melena and a small drop in hemoglobin on labs. She did get po Atorvastatin 80 mg STAT and started on nightly Atorvastatin Carotid Doppler showed moderate disease bilaterally Brain MRI was done and showed multiple locations of left-sided subacute strokes, suggesting a shower of emboli. Her Echo was done and showed preserved LVEF, a big left atrium, no clots were seen, no intracardiac shunt. Plan: Unfortunately, she cannot get aspirin or NSAIDs or anticoagulation because of the esophageal varices and heme positive stool Continue with atorvastatin qpm Start working with PT and OT. Rehab had to await her complications of having hypotension then having pulm edema (4) Hypotension Qualifiers: Hypotension type: unspecified hypotension type Qualified Code(s): I95.9 - Hypotension, unspecified Assessment/Plan: RESOLVED The low blood pressure was likely from fluid losses from frequent watery BMs plus from BP meds. BP was as low as 80. All her blood pressure meds were put on hold. She needed saline boluses, and IV fluids at 125 cc/h Improving her BP is important in the face of her acute stroke so that she has better brain perfusion Plan: Remain off iv fluids given the CHF Remain off BP meds unless very hypertensive (5) C. difficile diarrhea Assessment/Plan: Pt presented with abd pain, many episodes of diarrhea, and tested C diff + Her stools are starting to become formed as pof 07/24/23 Plan: Cont IV metronidazole 500 mg q8h and PO vancomycin 500 mg q6h - higher dose regimen was started given associated hypotension Cont Florastor Contact isolation can stop today, given formed BMs for 2 days (6) Conjunctivitis RN noticed that she has bilateral green dried secretions on her eyelids and slight scleral redness Plan: I ordered twice daily gentamicin eyedrops (7) Melena Assessment/Plan: Pt had dark stools, and tested guaiac + at admission ER provider discussed this finding with gen surg (see notes, no intervention at this time was the conclusion) Her Hgb did drop, but she had received many L of fluids since admission Plan: Follow Hgb Transfuse if hemoglobin less than 7 or if less than 8 with active bleeding I will check her iron panel and give either IV dextran or oral iron if it is indicated (8) Fascioscapulohumeral muscular dystrophy Assessment/Plan: As per Hx. She has caregivers at home all set up We learned that she uses CPAP at home which was not known until 07/23/23 Plan: I ordered CPAP use here She has become very weak from deconditioning on top of having an acute stroke on top of having muscular dystrophy, and she knows she needs rehab at a SNF. (9) Primary biliary cirrhosis She reports that she has had esophageal varices that bled, therefore she must have portal HTN, but she says she gets no ascites. 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 (10) Aortic stenosis Her systolic murmur is readily heard. Her last Echo was done in February 2022 and showed mild-moderate . Echo done to eval for source of emboli after her stroke here, showed moderate (11) Hx HTN All her blood pressure meds were put on hold because of the hypotension Plan: Continue to hold BP meds (12) Thrombocytopenia Plt count dropped from normal to 34K, she does have petechial hemorrhages, seen on knees I checked for DIC but her fibrinogen level was normal I rechecked her platelets in several hours and plt count went up to normal range, therefore this was probably a lab error Plan: Follow CBC intermittently - Current Meds Current Meds: Current Medications Generic Name Dose Route Start Last Admin Trade Name Davidq PRN Reason Stop Dose Admin Atorvastatin Calcium 20 mg 07/22/23 21:00 07/25/23 20:20 Atorvastatin 40 Mg Tablet PO 20 mg QPM MIGUE Administration Gabapentin 300 mg 07/21/23 21:00 07/25/23 20:20 Gabapentin 300 Mg Capsule PO 300 mg QPM MIGUE Administration Gentamicin Sulfate 1 drops 07/24/23 12:00 07/26/23 09:34 Gentamicin 0.3% Ophth Drops EACHEYE 1 drops BID MIGUE Administration Metronidazole 500 mg in 100 mls @ 100 mls/hr 07/21/23 06:00 07/26/23 16:11 Flagyl 500 Mg/100 Ml IV 100 mls/hr Q8H MIGUE Administration Multi-Ingredient Ointment 1 applic 07/21/23 09:00 07/26/23 09:33 Zinc Oxide 20% Oint 30 Gm Tube TOP 1 applic BID MIGUE Administration Multivitamins/Minerals 1 tab 07/26/23 09:00 07/26/23 09:36 Multivitamin W/Minerals Tablet PO 1 tab DAILYWM MIGUE Administration [id number] Ethyl Esters 1 gm 07/21/23 21:00 07/26/23 10:35 [place]-3 Acid Ethyl Esters 1 Gm Capsule PO Not Given BID MIGUE Pantoprazole Sodium 40 mg 07/21/23 21:00 07/26/23 09:32 Pantoprazole 40 Mg Tablet PO 40 mg BID MIGUE Administration Saccharomyces Boulardii 500 mg 07/21/23 10:00 07/26/23 16:17 Saccharomyces Boulardii 250 Mg Capsule PO 500 mg BIDWM MIGUE Administration Sodium Chloride 10 ml 07/20/23 21:51 07/25/23 15:33 Sodium Chloride Flush 0.9% 10 Ml Syringe IVP 10 ml PRN PRN Administration NEEDED PER PROVIDER ORDERS Sodium Chloride 10 ml 07/21/23 01:00 07/26/23 16:17 Sodium Chloride Flush 0.9% 10 Ml Syringe IVP 10 ml 0100,0900,1700 MIGUE Administration Ursodiol 500 mg 07/21/23 09:00 07/26/23 09:31 Ursodiol 250 Mg Tablet PO 500 mg BID MIGUE Administration Vancomycin HCl 125 mg 07/26/23 09:39 07/26/23 16:17 Vancomycin 125 Mg Capsule PO 125 mg QID MIGUE Administration - Lab Result Fish Bone Diagrams: 07/26/23 04:49 07/26/23 04:49 - Additional Planning My Orders: My Active Orders 07/26/23 09:00 Multivitamin W/Minerals [Theragran M] 1 tab PO DAILYWM 07/26/23 Lunch Dysphagia - Minced and Moist [DIET] 07/27/23 05:00 BMP - BASIC METABOLIC PANEL [CHEM] Routine CBC - COMP BLD CT W/AUTO DIFF [HEME] DAILYLAB CBC - COMP BLD CT W/AUTO DIFF [HEME] Routine COMPREHENSIVE METABOLIC PANEL [CHEM] DAILYLAB Subjective - Subjective Patient Reports: Feeling Better Objective Vital Signs: Vital Signs - 24 hr 07/25/23 07/25/23 07/25/23 18:50 20:59 21:00 Temperature 36.9 C Heart Rate [ 104 H Monitoring electrodes] Respiratory 18 Rate Blood Pressure 125/67 [Left Radial artery] Blood Pressure [Right Brachial artery] O2 Saturation 95 If not protocol 3 2 2 : Oxygen Flow, liters/minute 07/25/23 07/25/23 07/25/23 21:08 21:18 21:30 Temperature Heart Rate [ 142 H 90 Monitoring electrodes] Respiratory Rate Blood Pressure [Left Radial artery] Blood Pressure [Right Brachial artery] O2 Saturation If not protocol 2 : Oxygen Flow, liters/minute 07/25/23 07/25/23 07/25/23 22:00 22:03 23:00 Temperature Heart Rate [ 93 108 H Monitoring electrodes] Respiratory 19 17 Rate Blood Pressure 128/56 L 115/55 L [Left Radial artery] Blood Pressure [Right Brachial artery] O2 Saturation 95 88 L If not protocol 2 2 1.5 : Oxygen Flow, liters/minute 07/25/23 07/26/23 07/26/23 23:03 00:00 01:00 Temperature 36.9 C Heart Rate [ 87 91 Monitoring electrodes] Respiratory 19 16 21 Rate Blood Pressure 121/58 L 143/70 H [Left Radial artery] Blood Pressure [Right Brachial artery] O2 Saturation 95 98 98 If not protocol 3 3 3 : Oxygen Flow, liters/minute 07/26/23 07/26/23 07/26/23 02:00 03:00 04:00 Temperature Heart Rate [ 95 101 H 100 Monitoring electrodes] Respiratory 16 20 24 Rate Blood Pressure 125/55 L 154/73 H 156/76 H [Left Radial artery] Blood Pressure [Right Brachial artery] O2 Saturation 95 92 89 L If not protocol 3 2 : Oxygen Flow, liters/minute 07/26/23 07/26/23 07/26/23 05:00 06:00 06:40 Temperature 36.7 C Heart Rate [ 80 84 Monitoring electrodes] Respiratory 16 21 Rate Blood Pressure 135/70 H [Left Radial artery] Blood Pressure [Right Brachial artery] O2 Saturation 81 L 100 If not protocol 3 3 : Oxygen Flow, liters/minute 07/26/23 07/26/23 07/26/23 07:00 08:00 09:00 Temperature Heart Rate [ 86 90 90 Monitoring electrodes] Respiratory 20 20 22 Rate Blood Pressure 144/75 H 159/73 H 147/73 H [Left Radial artery] Blood Pressure [Right Brachial artery] O2 Saturation 94 98 99 If not protocol 2 2 2 : Oxygen Flow, liters/minute 07/26/23 07/26/23 07/26/23 10:00 11:00 12:00 Temperature Heart Rate [ 88 80 86 Monitoring electrodes] Respiratory 20 22 23 Rate Blood Pressure 149/97 H [Left Radial artery] Blood Pressure 147/70 H 165/75 H [Right Brachial artery] O2 Saturation 2 L 97 98 If not protocol 2 2 2 : Oxygen Flow, liters/minute 07/26/23 07/26/23 14:00 15:00 Temperature 39.3 C H Heart Rate [ Monitoring electrodes] Respiratory 21 Rate Blood Pressure [Left Radial artery] Blood Pressure 161/80 H [Right Brachial artery] O2 Saturation 98 If not protocol 2 2 : Oxygen Flow, liters/minute Oxygen O2 Source Nasal cannula I&O (Last 24 Hrs): Intake and Output Totals x24h 07/24/23 07/25/23 07/26/23 23:59 23:59 23:59 Intake Total 1156.000 777 600 Output Total 1135 2500 1003 Balance 21.000 -1723 -403 General: Alert, Oriented x3 HEENT: Mucous membr. moist/pink, Other (Appears tired) Neck: Supple Neuro: Alert, Other (Generalized weakness and R leg has 0/5 strength) Cardiovascular: Regular rate, Other (syst murmur present) Respiratory: No respiratory distress, Breath sounds nml Abdomen: Normal bowel sounds, Soft, No tenderness Extremities: No clubbing, No edema, No tenderness/swelling - Results Results: Laboratory Results WBC 5.0 x10^3/uL (4.8-10.8) 07/26/23 04:49 RBC 4.01 10^6/uL (4.20-5.40) L 07/26/23 04:49 Hgb 12.4 g/dL (12.0-16.0) 07/26/23 04:49 Hct 39.4 % (37.0-47.0) 07/26/23 04:49 MCV 98.3 fL (81.0-99.0) 07/26/23 04:49 MCH 30.9 pg (27.0-31.0) 07/26/23 04:49 MCHC 31.5 g/dL (32.0-36.0) L 07/26/23 04:49 RDW 16.9 % (12.0-15.0) H 07/26/23 04:49 Plt Count 99 10^3/uL (130-450) L 07/26/23 04:49 MPV 9.9 fL (7.9-10.8) 07/26/23 04:49 Neut # (Auto) 3.9 10^3/uL (1.5-6.6) 07/26/23 04:49 Lymph # (Auto) 0.4 10^3/uL (1.5-3.5) L 07/26/23 04:49 [place] # (Auto) 0.6 10^3/uL (0.0-1.0) 07/26/23 04:49 Eos # (Auto) 0.1 10^3/uL (0.0-0.7) 07/26/23 04:49 Baso # (Auto) 0.0 10^3/uL (0.0-0.1) 07/26/23 04:49 Absolute Nucleated RBC 0.00 x10^3/uL 07/26/23 04:49 Nucleated RBC % 0.0 /100WBC 07/26/23 04:49 Manual Slide Review Indicated 07/24/23 05:00 Platelet Estimate DECREASED (<130,000) (NORMAL) 07/24/23 05:00 Platelet Morphology NORMAL APPEARANCE (NORMAL) 07/24/23 05:00 PT 11.6 secs (9.9-12.6) 07/24/23 12:10 INR 1.1 (0.8-1.2) 07/24/23 12:10 Fibrinogen 446 mg/dL (220-496) 07/24/23 05:00 Bld Gas Analysis Time 0933 07/23/23 09:27 Sample Site LEFT RADIAL 07/23/23 09:27 ABG pH 7.22 (7.35-7.45) L 07/23/23 09:27 ABG pCO2 64 mmHg (34-45) H* 07/23/23 09:27 ABG pO2 73 mmHg (80-100) L 07/23/23 09:27 ABG HCO3 25.6 mmol/L (22.0-26.0) 07/23/23 09:27 ABG Total CO2 27.5 MMOL/L (21.0-29.0) 07/23/23 09:27 ABG O2 Saturation 93 % (94-98) L 07/23/23 09:27 ABG Base Excess -3.4 mmol/L (-2.0-3.0) L 07/23/23 09:27 Jonathan Test POSITIVE 07/23/23 09:27 VBG pH 7.337 (7.31-7.41) 07/26/23 04:49 Ionized Calcium 1.11 mmol/L (1.15-1.33) L 07/26/23 04:49 O2 Delivery Device NASAL CANNULA 07/23/23 09:27 O2 Liters/Min 2.00 LPM 07/23/23 09:27 Sodium 139 mmol/L (135-145) 07/26/23 04:49 Potassium 3.6 mmol/L (3.5-4.5) 07/26/23 04:49 Chloride 103 mmol/L (101-111) 07/26/23 04:49 Carbon Dioxide 30 mmol/L (21-32) 07/26/23 04:49 Anion Gap 6.0 (6-13) 07/26/23 04:49 BUN 32 mg/dL (6-20) H 07/26/23 04:49 Creatinine 1.2 mg/dL (0.6-1.3) 07/26/23 04:49 Estimated GFR (MDRD) 43 (>89) L 07/26/23 04:49 Glucose 92 mg/dL (74-104) 07/26/23 04:49 Lactic Acid 1.1 mmol/L (0.5-2.2) 07/20/23 18:03 Calcium 8.5 mg/dL (8.5-10.3) 07/26/23 04:49 Phosphorus 2.1 mg/dL (2.5-5.0) L 07/26/23 04:49 Magnesium 1.7 mg/dL (1.7-2.3) 07/26/23 04:49 Iron 81 ug/dL (50-212) 07/24/23 06:30 TIBC 246 ug/dL (250-450) L 07/24/23 06:30 % Saturation 33 % (20-50) 07/24/23 06:30 Transferrin 176 mg/dL (203-362) L 07/24/23 06:30 Total Bilirubin 0.6 mg/dL (0.2-1.0) 07/26/23 04:49 AST 18 IU/L (10-42) 07/26/23 04:49 ALT 9 IU/L (10-60) L 07/26/23 04:49 Alkaline Phosphatase 51 IU/L (42-121) 07/26/23 04:49 Troponin I High Sens 41.0 ng/L (2.3-14.8) H* 07/23/23 15:20 Total Protein 6.1 g/dL (6.4-8.9) L 07/26/23 04:49 Albumin 3.0 g/dL (3.2-5.5) L 07/26/23 04:49 Globulin 3.1 g/dL (2.1-4.2) 07/26/23 04:49 Albumin/Globulin Ratio 1.0 (1.0-2.2) 07/26/23 04:49 Triglycerides 64 mg/dL (48-352) 07/22/23 05:31 Cholesterol 138 mg/dL (-200) 07/22/23 05:31 LDL Cholesterol, Calc 77 mg/dL (-129) 07/22/23 05:31 VLDL Cholesterol 13 mg/dL 07/22/23 05:31 HDL Cholesterol 48 mg/dL (60-) L 07/22/23 05:31 LDL/HDL Ratio 1.6 (<4.4) 07/22/23 05:31 Cholesterol/HDL Ratio 2.9 (<4.4) 07/22/23 05:31 Lipase 40 U/L (11-82) 07/20/23 14:50 Nasal Screen MRSA (PCR) NEGATIVE (NEGATIVE) 07/23/23 11:20 Stl C. diff Tox B Gene POSITIVE (NEGATIVE) A* 07/20/23 16:00 - Procedures Procedures: Procedures EXCISION OF STOMACH, ENDO, DIAGN (03/14/18) EXCISION OF STOMACH, PYLORUS, ENDO, DIAGN (03/14/18) INSPECTION OF LOWER INTESTINAL TRACT, ENDO (03/14/18) TRANSFUSE NONAUT RED BLOOD CELLS IN PERIPH VEIN, PERC (02/15/18)
[2023-07-26] MEDS: traZODone 50 MG TABLET PO SCH (21:20)
[2023-07-27 05:41] LABS: BASOPHILS % (AUTO) 0.4 %; EOSINOPHILS # (AUTO) 0.1 10^3/uL (0.0-0.7); EOSINOPHILS % (AUTO) 1.3 %; HCT - HEMATOCRIT 40.3 % (37.0-47.0); HGB - HEMOGLOBIN 12.3 g/dL (12.0-16.0); LYMPHOCYTES # (AUTO) 0.4 10^3/uL (1.5-3.5); LYMPHOCYTES % (AUTO) 7.9 %; MEAN CORPUSCULAR HEMOGLOBIN 30.2 pg (27.0-31.0); MEAN CORPUSCULAR HGB CONC 30.5 g/dL (32.0-36.0); MEAN PLATELET VOLUME 10.4 fL (7.9-10.8); MONOCYTES # (AUTO) 0.6 10^3/uL (0.0-1.0); MONOCYTES % (AUTO) 10.2 %; NEUTROPHILS # (AUTO) 4.5 10^3/uL (1.5-6.6); NEUTROPHILS % (AUTO) 79.8 %; PLT - PLATELET COUNT 85 10^3/uL (130-450); RED BLOOD COUNT 4.07 10^6/uL (4.20-5.40); RED CELL DISTRIBUTION WIDTH 16.8 % (12.0-15.0); WHITE BLOOD COUNT 5.6 x10^3/uL (4.8-10.8)
[2023-07-27 05:55] LABS: ALBUMIN 3.2 g/dL (3.2-5.5); BILIRUBIN,TOTAL 0.6 mg/dL (0.2-1.0); CALCIUM 8.7 mg/dL (8.5-10.3); POTASSIUM 3.6 mmol/L (3.5-4.5); TOTAL PROTEIN 6.4 g/dL (6.4-8.9)
[2023-07-27] MEDS: carvediloL 3.125 MG TABLET PO SCH (11:41)
[2023-07-27] MEDS: amLODIPine 5 MG TABLET PO SCH (11:41)
--- NOTE | 2023-07-27 12:17 | Discharge Plan ---
"Discharge Plan for SNF / [facility] - Discharge Plan And Transition Orders Problem Reviewed?: Yes Disposition: 03 SNF DC/Xfer Condition: Stable Allergies and Adverse Reactions: Allergies Allergy/AdvReac Type Severity Reaction Status Date / Time erythromycin base Allergy Unknown Verified 07/20/23 14:13 Sulfa (Sulfonamide Allergy Unknown Verified 07/20/23 14:13 Antibiotics) Health Concerns: The patient presented with abdominal pain and many episodes of diarrhea. She went to the emergency room as she was found to have hypotension, colitis, and C. difficile positive. The next day she complained of right foot and right leg weakness that she had for 10 hours before reporting it. Exam confirmed acute change in status and CT showed subacute left lacunar stroke. She is not able to take aspirin because of esophageal variceal bleeding, and melena. But she is on atorvastatin. Brain MRI has multiple locations of left-sided subacute strokes. Echo with big atrium but no clots. No A-fib on telemetry. Fourth day of hospitalization she became tachypneic and desaturated. Put in the ICU for BiPAP and found to have pulmonary edema and she was diuresed. She uses a home CPAP machine. She has a history of muscular dystrophy and already has caregivers at home. She has primary biliary cirrhosis with esophageal varices and portal hypertension. No ascites. Followed by hepatology. Transient thr ombocytopenia during her stay. She has mild to moderate aortic stenosis identified since 2021. Plan of Treatment: She was started on both oral and intravenous antibiotics. IV antibiotics will be discontinued and she will need a total of 14 days of antibiotics for C. difficile colitis. Stopping date would be with the last dose on August 03. She is going to require physical therapy and Occupational Therapy to regain strength, mobility to return to independent living. Care Goals: Goal will be to a grain of strength to return to independent living. Assessment: Patient is alert, oriented to person, self, and situation - SNF / ASSISTED Transition Orders Admit to (Facility): [facility] Under the care of (Name): Dorie Oliveira is her primary care provider Discharge Diagnosis: 1. C. difficile colitis 2. Melena 3. History of esophageal varices 4. Primary biliary cirrhosis 5. Flash pulmonary edema due to fluid overload 6. Acute on chronic respiratory failure with hypoxia requiring short-term BiPAP 7. Acute left lacunar stroke 8. Hypotension 10. 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 Aortic stenosis 13. History of hypertension 14. Thrombocytopenia, lab error Medicare Certification Statement: I certify that Post Hospital assisted care is medically necessary on a continuing basis for any of the conditions for which she/he is receiving care during hospitalization. Notify PCP of admission and forward orders to primary provider for signature. Weight on admission and: Weekly Other Notification Orders: Call PCP immediately if patient develops dyspnea, chest pain/tightness or edema. House Bowel Program: Yes Additional Bowel Program Orders: If no BM after 2 days, nurse may give M.O.M. 30ml PO PRN and/or ducolax Supp 1 OR and/or JEFERSON 250mg P.O., and/or senna 1-2 tabs PO. On day 3 nurse may give repeat above order until residents constipation is resolved. Annual Influenza Vaccine (between Feb 12 and September 11): Yes Two-step PPD per [facility] [phone] or approved exception documents: Yes Oxygen Orders: 2 L nasal cannula to maintain O2 sats greater than 92% Medication Orders: PLEASE REFER TO THE DISCHARGE MEDICATION LIST. Insulin Orders?: No - Diet Type: No added salt Texture: Mech soft Liquids: Thin May have monthly special meal: Yes - Therapies | Activity Therapy: Evaluation | Treat if indicated: PT, OT Rehabilitation Potential: Return to independent living Activity: Activity as Tolerated Weight Bearing: Full Weight Assistance Devices: Wheelchair, Walker"
--- NOTE | 2023-07-27 12:31 | DISCHARGE SUMMARY ---
Discharge Summary Admit Date: 07/20/23 Discharge Date: 07/27/23 Discharging Provider: María Perez MD Primary Care Provider: Dorie Oliveira MD Code Status: Do Not Attempt Resuscitation Condition at Discharge: Stable Discharge Disposition: 03 SNF DC/Xfer - DIAGNOSES Discharge Diagnoses with Status of Each Condition: 1. C. difficile colitis 2. Melena 3. History of esophageal varices 4. Primary biliary cirrhosis 5. Flash pulmonary edema due to fluid overload 6. Acute on chronic respiratory failure with hypoxia requiring short-term BiPAP 7. Acute left lacunar stroke 8. Hypotension 10. 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 Aortic stenosis 13. History of hypertension 14. Thrombocytopenia, lab error - HPI History of Present Illness: Ms Mullins is an 83-year-old female with a history of muscular dystrophy, hypertension, primary biliary cirrhosis, known esophageal varices. Presents to ER with c/o generalized weakness, she started having abdominal cramping and several episodes of diarrhea around noon today. Too weak to get off the toilet. Systolic 70s at time of EMS arrival. Has not noticed any blood in the stool. Denies fevers/chills, denies vomiting, she did feel nauseous. Pt states she has gained 14 lbs since her hospital discharge 10 days ago. Her Lasix dose was adjusted at that time, denies peripheral edema. She feels short of breath in the mornings, improves during the day. Pt reports amlodipine was recently added to her med list. - Past Medical History Cardiovascular: reports: Hypertension, High cholesterol, Atrial fibrillation, Murmur Respiratory: reports: None Neuro: reports: Other Endocrine/Autoimmune: reports: None GI: reports: GI bleed, Other CASING RUNNER: reports: None : reports: Kidney stones HEENT: reports: None Psych: reports: Depression, Anxiety Musculoskeletal: reports: Chronic back pain, Other Derm: reports: None MRSA Hx?: No - Past Surgical History General: reports: Colonoscopy, EGD, Other Ortho: reports: Other - CONSULTS | PROCEDURES Procedures: Head CT with small hypodensity in the left basal ganglia that could represent a small lacunar infarct of uncertain chronicity. Brain MRI with small subacute infarct, involving the posterior aspect of the left superior frontal gyrus, and left superior parietal lobule. Age-appropriate atrophy no significant chronic ischemic change. Bifrontal subdural hygromas measuring up to 6 mm in thickness. No midline shift. 3 chest x-rays done during her stay had cardiomegaly with vascular congestion. That improved over the course of her stay. She had stable bibasilar effusions. Carotid Doppler with 50 to 69% stenosis of the right internal carotid artery. 50 to 69% and of the left internal carotid artery. She had antegrade flow in both vertebral arteries. - HOSPITAL COURSE Hospital Course: Patient was found to have hypotension, colitis, and C. difficile positive. Acute and chronic respiratory failure with hypoxia Assessment/Plan: Patient is on home O2 and we continued that here On 07/23/23 she became tachypneic and desaturated further, needed to be put in ICU on new BIPAP. Cause was pulm edema We also learned on 07/23/23 that she uses CPAP at home which was not known. She can get lethargic until BIPAP is put on her, then improves and communicates. Plan: Continue giving supplemental O2 via n.c. and using her home CPAP machine. BIPAP can be resumed if it is again needed Flash pulm edema RESOLVED On 07/23/23, she became tachypneic and had shallow rapid respiratory rate. A STAT chest x-ray was done that showed pulmonary edema plus bilat pleural effusions. She was about 9 L positive in fluid balance, because fluids were being given for her hypotension and fluid losses from diarrhea. ABG was done showing she was retaining CO2. She was then transferred to ICU and started on BiPAP. I checked her troponins x 2 and they were "flat", also EKG had no new changes Her Echo, to evaluate for cardiac source of embolus for the stroke had already been done, and it showed preserved LVEF and grade 1 diastolic dysfunction. She received iv Lasix for 2 days only, so as not to cause hypotension again. Moved out of ICU July 26. Plan: Using BiPAP also helps treat pulmonary edema Acute CVA Assessment/Plan: On 07/21/23, the patient reported right foot and right leg weakness, that she had for 10 hours before reporting it. Exam did show 0-1/5 strength of R foot and leg. Her head CT showed a subacute L lacunar stroke. Neurostroke was requested, their documentation is not seen, but recommendations were not to give aspirin because of her history of esophageal varices and melena and a small drop in hemoglobin on labs. She did get po Atorvastatin 80 mg STAT and started on nightly Atorvastatin Carotid Doppler showed moderate disease bilaterally Brain MRI was done and showed multiple locations of left-sided subacute strokes, suggesting a shower of emboli. Her Echo was done and showed preserved LVEF, a big left atrium, no clots were seen, no intracardiac shunt. At time show telemetry strip showed as if she were in atrial fibrillation. But those were all reviewed and we labeled as sinus rhythm. The fact that she has had multiple emboli indicates that she may have atrial fibrillation. However she is not going to be able to be anticoagulated. Plan: Unfortunately, she cannot get aspirin or NSAIDs or anticoagulation because of the esophageal varices and heme positive stool Continue with atorvastatin qpm Transfer to intermediate facility so that she can continue to work with PT and OT. Rehab had to wait her until her complications of having hypotension then having pulm edema resolved. If she recovers from the stroke, and wishes to move forward with treatment, she should have an event monitor will reveal loop. Document that she has the atrial fibrillation. And be considered for a Watchman procedure. Hypotension Qualifiers: Hypotension type: unspecified hypotension type Qualified Code(s): I95.9 - Hypotension, unspecified Assessment/Plan: RESOLVED The low blood pressure was likely from fluid losses from frequent watery BMs plus from BP meds. BP was as low as 80. All her blood pressure meds were put on hold. She needed saline boluses, and IV fluids at 125 cc/h Improving her BP is important in the face of her acute stroke so that she has better brain perfusion. Plan: Remain off iv fluids given the CHF Blood pressure medications were held during her stay until the day of discharge when blood pressure came back up enough to resume home treatment of carvedilol and amlodipine. C. difficile diarrhea Assessment/Plan: Pt presented with abd pain, many episodes of diarrhea, and tested C diff + Her stools are starting to become formed as pof 07/24/23 Plan: Initially started on IV metronidazole 500 mg q8h and PO vancomycin 500 mg q6h - higher dose regimen was started given associated hypotension She was also continued on Florastor. Diarrhea improved. On the day of discharge IV metronidazole was discontinued which was 7 days. She will not be continued on p.o. vancomycin for 7 more days. Conjunctivitis RN noticed that she has bilateral green dried secretions on her eyelids and slight scleral redness Plan: I ordered twice daily gentamicin eyedrops. This can be completed after 7 days of treatment. That can be discontinued July 28. Melena Assessment/Plan: Pt had dark stools, and tested guaiac + at admission ER provider discussed this finding with gen surg (see notes, no intervention at this time was the conclusion) Her Hgb did drop, but she had received many L of fluids since admission. Plan: Follow hemoglobin while she was here. Plan was to transfuse if she drop below 7 g of hemoglobin. She never required transfusion. Admission hemoglobin 13, and she was 12.3 at discharge. Fascioscapulohumeral muscular dystrophy Assessment/Plan: As per Hx. She has caregivers at home all set up We learned that she uses CPAP at home which was not known until 07/23/23 Plan: CPAP use here And upon transfer to intermediate facility. She has become very weak from deconditioning on top of having an acute stroke on top of having muscular dystrophy, and she knows she needs rehab at a SNF. (9) Primary biliary cirrhosis She reports that she has had esophageal varices that bled, therefore she must have portal HTN, but she says she gets no ascites. 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 (10) Aortic stenosis Her systolic murmur is readily heard. Her last Echo was done in February 2022 and showed mild-moderate . Echo done to eval for source of emboli after her stroke here, showed moderate (11) Hx HTN All her blood pressure meds were put on hold because of the hypotension but on the day of discharge her blood pressure has started to come back up again. As such her home medications of amlodipine and carvedilol were resumed. Patient is also on Lasix 40 mg a day at home. I am resuming 20 mg a day upon transfer to a intermediate facility. She was not on diuretic therapy while here other than for the 1 episode of pulmonary edema. Plan: Carefully monitor her blood pressure on a daily basis and make sure that she tolerates resuming her home medications. (12) Thrombocytopenia Plt count dropped from normal to 34K, she does have petechial hemorrhages, seen on knees I checked for DIC but her fibrinogen level was normal I rechecked her platelets in several hours and plt count went up to normal range, therefore this was probably a lab error Plan: Follow CBC intermittently She was evaluated and treated by physical therapy. They recommend ongoing physical therapy and occupational Therapy to regain strength, mobility to return to independent living.Discharge temperature is 37. Heart rate 81. Blood pr essure 149/84. Respirations 20. Saturating 94% on 2 L. She is oriented to person, place, time and situation but very flat affect, forgetful. Will look at me when I speak to her, will speak sentences, but has word finding difficulties. No JVD, lungs clear. Regular rate and rhythm. Abdomen soft, nontender,. Bowel movement today. Carver catheter in place. Legs with moderate pitting edema. Discharged in stable condition Care Goals: Goal will be to a grain of strength to return to independent living. 30 minutes was spent coordinating discharge This document was made in part using voice recognition software. While efforts are made to proofread this document, sound alike and grammatical errors may occur. - ALLERGIES Allergies/Adverse Reactions: Allergies Allergy/AdvReac Type Severity Reaction Status Date / Time erythromycin base Allergy Unknown Verified 07/20/23 14:13 Sulfa (Sulfonamide Allergy Unknown Verified 07/20/23 14:13 Antibiotics) - MEDICATIONS Home Medications: Ambulatory Orders Medication Instructions Recorded Confirmed Docusate Sodium 100Mg Capsule 100 mg PO DAILY PRN 07/09/23 07/21/23 [Colace 100Mg Capsule] Amlodipine Besylate [Norvasc] 5 mg PO DAILY #0 07/27/23 07/21/23 Atorvastatin [Lipitor] 20 mg PO QPM tab 07/27/23 Denosumab [Prolia] 60 mg SUBQ ONCE #0 07/27/23 07/21/23 Ferrous Sulfate 325 mg PO DAILY #0 07/27/23 07/21/23 Furosemide [Lasix] 20 mg PO DAILY #0 07/27/23 07/21/23 Gabapentin [Neurontin] 300 mg PO QPM #0 07/27/23 07/21/23 Gentamicin 0.3% Ophth Drops 1 drops EACHEYE BID each 07/27/23 [Garamycin] Multivitamin W/Minerals [Theragran 1 tab PO DAILYWM tab 07/27/23 M] [place]-3 Acid Ethyl Esters [Lovaza] 1 gm PO BID cap 07/27/23 Pantoprazole [Protonix] 40 mg PO BID #0 07/27/23 07/21/23 Saccharomyces Boulardii [Florastor] 500 mg PO BIDWM cap 07/27/23 Vancomycin [Vancocin] 125 mg PO QID cap 07/27/23 Zinc Oxide 20% Oint [Zinc Oxide] 1 applic TOP BID each 07/27/23 carvediloL [Coreg] 3.125 mg PO QPM #0 07/27/23 07/21/23 carvediloL [Coreg] 6.25 mg PO DAILY #0 07/27/23 07/21/23 traZODone [Desyrel] 50 mg PO QPM tab 07/27/23 ursodioL [Ursodiol] 500 mg PO BID #0 07/27/23 07/21/23 - LABS Result Diagrams: 07/27/23 04:35 07/27/23 04:35
[2023-07-27 14:04] VITALS: BP 149/84; O2SAT 94
[2023-07-27] MEDS ORDERED: carvediloL 3.125 MG TABLET PO SCH (21:00)
== END 2023-07-27 14:45 | DRG 371 ==
LOC: EDUNIT# → ED 13:54 → MS2 21:51 → ICU 07-23 11:11 → MS3 07-26 16:03
PROVIDERS: ADMIT Student in an Organized Health Care Education/Training Program; ATTEND Specialist
PROC: 5A09457 Assistance with Respiratory Ventilation, 24-96 Consecutive Hours, Continuous Positive Airway Pressure (ICD-10-PCS; principal; 2023-07-23)
DX: A04.72 Enterocolitis due to Clostridium difficile, not specified as recurrent (principal); I63.81 Other cerebral infarction due to occlusion or stenosis of small artery; R53.1 Weakness; J81.0 Acute pulmonary edema; J96.21 Acute and chronic respiratory failure with hypoxia; R06.02 Shortness of breath; K92.1 Melena; J90 Pleural effusion, not elsewhere classified; I85.10 Secondary esophageal varices without bleeding; E87.29 Other acidosis; K74.3 Primary biliary cirrhosis; E87.70 Fluid overload, unspecified; I95.9 Hypotension, unspecified; H10.9 Unspecified conjunctivitis; G71.02 Facioscapulohumeral muscular dystrophy; I35.0 Nonrheumatic aortic (valve) stenosis; I10 Essential (primary) hypertension; E78.00 Pure hypercholesterolemia, unspecified; I48.91 Unspecified atrial fibrillation; M54.9 Dorsalgia, unspecified; G83.11 Monoplegia of lower limb affecting right dominant side; I44.0 Atrioventricular block, first degree; I45.10 Unspecified right bundle-branch block; Z66 Do not resuscitate; Z79.899 Other long term (current) drug therapy; Z81.1 Family history of alcohol abuse and dependence; Z82.49 Family history of ischemic heart disease and other diseases of the circulatory system; Z87.891 Personal history of nicotine dependence
CPT/HCPCS: 36415; 36600; 70450; 70551; 71045; 80048; 80053; 80061; 82272; 82330; 82803; 83540; 83605; 83690; 83735; 84100; 84132; 84466; 84484; 85014; 85018; 85025; 85027; 85384; 85610; 87045; 87046; 87150; 87427; 87493; 93005; 93307; 93880; 94660; 96360; 96361; 97162; 97166; 97530; 99285; A9270; J8499; P9047; 83721

== ENCOUNTER 2023-07-27 14:46 | Outpatient (CLI) | payer MEDICARE, OTHER | END 2023-07-27 14:47 | LOC: EMS 14:46 | PROVIDERS: ATTEND Specialist | DX: I63.9 Cerebral infarction, unspecified (principal); I48.91 Unspecified atrial fibrillation; Z74.01 Bed confinement status | CPT/HCPCS: A0425; A0428 ==

== ENCOUNTER 2023-07-30 03:05 | Outpatient (CLI) | payer MEDICARE, OTHER | END 2023-07-30 23:59 | disposition EMS.NT | LOC: EMS 03:05 | DX: Z03.89 Encounter for observation for other suspected diseases and conditions ruled out (principal) ==